=== PATIENT | female | born 1940 | race Caucasian/White ===

== ENCOUNTER → 2017-08-25 | Outpatient (REF) ==
[2017-08-25 09:21] LABS: BASO # 0.1 10^3/uL (0.0-0.2); BASO % 1.3 % (0.0-1.0); EOS # 0.4 10^3/uL (0.0-0.50); EOS % 4.9 % (0.0-3.0); HEMATOCRIT 35.9 % (36.0-47.0); HEMOGLOBIN 11.7 g/dl (12.0-15.5); IMMATURE GRANULOCYTE % 0.3 % (0-3.0); LYMPH % 32.9 % (24.0-44.0); MEAN CORPUSCULAR HEMOGLOBIN 29.7 pg (27.0-33.0); MEAN CORPUSCULAR HGB CONC 32.6 g/dl (32.0-36.5); MEAN CORPUSCULAR VOLUME 91.1 fl (80.0-96.0); MONO # 0.2 10^3/uL (0.0-0.8); MONO % 2.4 % (0.0-5.0); NEUTROPHILS # 5.2 10^3/uL (1.8-7.7); NEUTROPHILS % 58.2 % (36.0-66.0); PLATELET COUNT, AUTOMATED 308 10^3/uL (150-450); RED BLOOD COUNT 3.94 10^6/uL (4.00-5.40)
[2017-08-25 09:31] LABS: ANION GAP 7 MEQ/L (8-16); BLOOD UREA NITROGEN 12 MG/DL (7-18); CALCIUM LEVEL 8.9 MG/DL (8.8-10.2); CARBON DIOXIDE LEVEL 28 MEQ/L (21-32); CHLORIDE LEVEL 106 MEQ/L (98-107); CREATININE FOR GFR 0.53 MG/DL (0.55-1.30); GLOMERULAR FILTRATION RATE > 60.0 (>39); GLUCOSE, FASTING 111 MG/DL (70-100); MAGNESIUM LEVEL 1.8 MG/DL (1.8-2.4); POTASSIUM SERUM 3.9 MEQ/L (3.5-5.1); SODIUM LEVEL 141 MEQ/L (136-145)
== END ==
LOC: SKLAB3 12:40
DX: C50.919 Malignant neoplasm of unspecified site of unspecified female breast (principal); I10 Essential (primary) hypertension

== ENCOUNTER 2017-10-15 11:57 | Inpatient (IN) | payer MEDICARE, MEDICAID ==
[2017-10-15] MEDS: ALBUTEROL 90 MCG/ACT 8GM HFA INHALER INH (09:00)
[2017-10-15 12:41] LABS: BASO # 0.1 10^3/uL (0.0-0.2); BASO % 0.2 % (0.0-1.0); EOS % 0.1 % (0.0-3.0); IMMATURE GRANULOCYTE # 1.1 10^3/uL (0-0); LYMPH # 1.3 10^3/uL (1.5-4.5); LYMPH % 4.6 % (24.0-44.0); MONO # 0.7 10^3/uL (0.0-0.8); MONO % 2.6 % (0.0-5.0); NEUTROPHILS # 24.3 10^3/uL (1.8-7.7); NEUTROPHILS % 88.5 % (36.0-66.0)
[2017-10-15 12:52] LABS: INR 1.69; PROTHROMBIN TIME 20.2 SECONDS (12.1-14.4)
[2017-10-15 13:53] LABS: CPK CREATINE PHOSPHOKINASE 11 U/L (26-192); TROPONIN I < 0.02 NG/ML (< 0.10)
[2017-10-15 13:59] LABS: CK-MB VALUE MASS < 1.0 NG/ML (<3.6); MB/CK RELATIVE INDEX 9.09 (< OR =4)
[2017-10-15] MEDS: NS 500 ML IV (14:00)
[2017-10-15 14:21] LABS: ALBUMIN 2.5 GM/DL (3.2-5.2); ALBUMIN/GLOBULIN RATIO 0.76 (1.00-1.93); ALKALINE PHOSPHATASE 113 U/L (45-117); ALT/SGPT 53 U/L (12-78); AST/SGOT 67 U/L (7-37); BILIRUBIN,DIRECT 0.3 MG/DL (0.0-0.2); BILIRUBIN,TOTAL 0.5 MG/DL (0.2-1.0); TOTAL PROTEIN 5.8 GM/DL (6.4-8.2)
[2017-10-15] MEDS ORDERED: LIDOCAINE 4% CREAM 5GM (LMX4) TOP (14:45)
[2017-10-15] MEDS ORDERED: ACETAMINOPHEN TAB 650MG DOSE (2X325MG) PO (14:45)
[2017-10-15] MEDS ORDERED: ALBUTEROL 90 MCG/ACT 8GM HFA INHALER INH (14:45)
[2017-10-15] MEDS: ONDANSETRON 4MG/2ML VIAL (J2405) IV (15:55)
[2017-10-15] MEDS: MORPHINE 4 MG/ML 1ML VIAL/SYRINGE (J2270) IV (15:55)
[2017-10-15] MEDS: CIPROFLOXACIN 400 MG in APPROPRIATE DILUENT 1 EA IV ×2 (16:00→19:31)
[2017-10-15] MEDS: HEPARIN SOD (PORCINE) 5000 UNITS/ML VIAL SC ×2 (17:39→21:08)
[2017-10-15] MEDS: SERTRALINE HCL 50 MG TAB PO (17:39)
[2017-10-15] MEDS: PANTOPRAZOLE 40MG TAB (PROTONIX) PO (17:39)
[2017-10-15] MEDS: amLODIPine 5 MG TAB PO (17:39)
[2017-10-15] MEDS: ASCORBIC ACID 500 MG TAB PO (17:40)
[2017-10-15] MEDS: NS 1,000 ML IV (17:41)
[2017-10-15] MEDS: metroNIDAZOLE 500 MG in APPROPRIATE DILUENT 1 EA IV (17:41)
[2017-10-15] MEDS: PERCOCET 5MG/325MG TAB PO (17:41)
[2017-10-15] MEDS: SIMETHICONE 80 MG CHEW TAB PO ×2 (17:41→21:07)
[2017-10-15] MEDS: VITAMIN D 1,000 INTERNATIONAL UNITS TABLET PO (17:43)
[2017-10-15 18:22] LABS: KETONE, URINE AUTO RFX NEGATIVE (NEGATIVE); MUCUS, URINE RFX SMALL (NEGATIVE); NITRITE, URINE AUTO RFX NEGATIVE (NEGATIVE); RBC, URINE AUTO RFX 3 /HPF (0-3); SPECIFIC GRAVITY UR AUTO RFX 1.011 (1.002-1.035); SQUAM EPITHELIAL CELL UR AURFX 0 /HPF (0-6)
[2017-10-15 18:24] LABS: LEUKOCYTE ESTERASE UR AUTO RFX 3+ (NEGATIVE); WBC, URINE AUTO RFX 46 /HPF (0-3)
[2017-10-15 19:12] LABS: LACTIC ACID SEPSIS PROTOCOL 1.6 MMOL/L (0.4-2.0)
[2017-10-15] MEDS: POTASSIUM CHLORIDE 10 MEQ SR TABLET PO (21:06)
[2017-10-15] MEDS: CARVedilol 12.5 MG TAB PO (21:06)
[2017-10-15] MEDS: MIRTAZAPINE 15 MG TAB PO (21:06)
[2017-10-15] MEDS: traMADol 50 MG TAB PO (21:07)
[2017-10-15] MEDS: LIDOCAINE 4% CREAM 5GM (LMX4) TOP (21:08)
[2017-10-16] MEDS: metroNIDAZOLE 500 MG in APPROPRIATE DILUENT 1 EA IV ×3 (00:59→17:09)
[2017-10-16] MEDS: NS 1,000 ML IV ×2 (03:57→11:30)
[2017-10-16] MEDS: CIPROFLOXACIN 400 MG in APPROPRIATE DILUENT 1 EA IV ×2 (05:24→18:11)
[2017-10-16] MEDS: HEPARIN SOD (PORCINE) 5000 UNITS/ML VIAL SC ×3 (05:24→21:28)
[2017-10-16] MEDS: PERCOCET 5MG/325MG TAB PO (05:25)
[2017-10-16 06:49] LABS: BASO % 0.2 % (0.0-1.0); EOS # 0.1 10^3/uL (0.0-0.50); EOS % 0.3 % (0.0-3.0); HEMATOCRIT 27.6 % (36.0-47.0); HEMOGLOBIN 9.7 g/dl (12.0-15.5); IMMATURE GRANULOCYTE % 3.4 % (0-3.0); LYMPH # 1.5 10^3/uL (1.5-4.5); LYMPH % 5.9 % (24.0-44.0); MEAN CORPUSCULAR HGB CONC 35.1 g/dl (32.0-36.5); MEAN CORPUSCULAR VOLUME 85.4 fl (80.0-96.0); MONO # 0.5 10^3/uL (0.0-0.8); NEUTROPHILS # 22.5 10^3/uL (1.8-7.7); NEUTROPHILS % 88.2 % (36.0-66.0); PLATELET COUNT, AUTOMATED 322 10^3/uL (150-450); RED BLOOD COUNT 3.23 10^6/uL (4.00-5.40); RED CELL DISTRIBUTION WIDTH 16.3 % (11.5-14.5); WHITE BLOOD COUNT 25.5 10^3/uL (4.0-10.0)
[2017-10-16 07:11] LABS: ALKALINE PHOSPHATASE 103 U/L (45-117); ALT/SGPT 37 U/L (12-78); ANION GAP 10 MEQ/L (8-16); AST/SGOT 25 U/L (7-37); BILIRUBIN,TOTAL 0.4 MG/DL (0.2-1.0); BLOOD UREA NITROGEN 42 MG/DL (7-18); CALCIUM LEVEL 7.6 MG/DL (8.8-10.2); CARBON DIOXIDE LEVEL 19 MEQ/L (21-32); CHLORIDE LEVEL 103 MEQ/L (98-107); CREATININE FOR GFR 1.03 MG/DL (0.55-1.30); GLUCOSE, FASTING 144 MG/DL (70-100); MAGNESIUM LEVEL 1.9 MG/DL (1.8-2.4); POTASSIUM SERUM 4.1 MEQ/L (3.5-5.1); SODIUM LEVEL 132 MEQ/L (136-145)
[2017-10-16] MEDS: ALBUTEROL 90 MCG/ACT 8GM HFA INHALER INH (08:08)
[2017-10-16] MEDS: PANTOPRAZOLE 40MG TAB (PROTONIX) PO (09:00)
[2017-10-16] MEDS: ASCORBIC ACID 500 MG TAB PO (09:01)
[2017-10-16] MEDS: VITAMIN D 1,000 INTERNATIONAL UNITS TABLET PO (09:01)
[2017-10-16] MEDS: SIMETHICONE 80 MG CHEW TAB PO ×3 (09:01→21:27)
[2017-10-16] MEDS: POTASSIUM CHLORIDE 10 MEQ SR TABLET PO ×2 (09:01→21:29)
[2017-10-16] MEDS: SERTRALINE HCL 50 MG TAB PO (09:01)
[2017-10-16] MEDS: amLODIPine 5 MG TAB PO (09:15)
[2017-10-16] MEDS: CARVedilol 12.5 MG TAB PO ×2 (09:15→21:27)
[2017-10-16] MEDS: MIRTAZAPINE 15 MG TAB PO (21:27)
[2017-10-16] MEDS: LIDOCAINE 4% CREAM 5GM (LMX4) TOP (21:27)
[2017-10-16] MEDS: traMADol 50 MG TAB PO (21:28)
[2017-10-17] MEDS: metroNIDAZOLE 500 MG in APPROPRIATE DILUENT 1 EA IV ×3 (01:21→16:36)
[2017-10-17] MEDS: NS 1,000 ML IV ×2 (05:48→21:23)
[2017-10-17] MEDS: HEPARIN SOD (PORCINE) 5000 UNITS/ML VIAL SC ×3 (05:48→21:21)
[2017-10-17] MEDS: CIPROFLOXACIN 400 MG in APPROPRIATE DILUENT 1 EA IV ×2 (05:48→18:12)
[2017-10-17] MEDS: traMADol 50 MG TAB PO ×2 (05:53→18:53)
[2017-10-17] MEDS: ALBUTEROL 90 MCG/ACT 8GM HFA INHALER INH (07:59)
[2017-10-17] MEDS: ASCORBIC ACID 500 MG TAB PO (09:16)
[2017-10-17] MEDS: amLODIPine 5 MG TAB PO (09:16)
[2017-10-17] MEDS: POTASSIUM CHLORIDE 10 MEQ SR TABLET PO ×2 (09:16→21:21)
[2017-10-17] MEDS: SIMETHICONE 80 MG CHEW TAB PO ×3 (09:16→21:21)
[2017-10-17] MEDS: PANTOPRAZOLE 40MG TAB (PROTONIX) PO (09:17)
[2017-10-17] MEDS: SERTRALINE HCL 50 MG TAB PO (09:17)
[2017-10-17] MEDS: VITAMIN D 1,000 INTERNATIONAL UNITS TABLET PO (09:17)
[2017-10-17] MEDS: CARVedilol 12.5 MG TAB PO ×2 (09:17→21:21)
[2017-10-17 09:27] LABS: HEMATOCRIT 30.4 % (36.0-47.0); HEMOGLOBIN 10.4 g/dl (12.0-15.5); MEAN CORPUSCULAR HEMOGLOBIN 29.5 pg (27.0-33.0); MEAN CORPUSCULAR HGB CONC 34.2 g/dl (32.0-36.5); MEAN CORPUSCULAR VOLUME 86.4 fl (80.0-96.0); PLATELET COUNT, AUTOMATED 401 10^3/uL (150-450); RED BLOOD COUNT 3.52 10^6/uL (4.00-5.40); WHITE BLOOD COUNT 22.8 10^3/uL (4.0-10.0)
[2017-10-17 09:38] LABS: ADD MANUAL DIFFER YES; DIFF SLIDE NUMBER 55; POS COUNT POS FLAG; POSITIVE MORPH POS FLAG
[2017-10-17] MEDS: PERCOCET 5MG/325MG TAB PO ×2 (09:41→21:25)
[2017-10-17 10:02] LABS: ANISOCYTOSIS 1+; BANDS 1 % (< 11); LYMPHOCYTES 9 % (16-52); METAMYELOCYTES 2 % (0-0); MONOCYTES 3 % (0-8); NEUTROPHILS 85 % (35-75); OVALOCYTES 1+; PLATELET ESTIMATE NORMAL (NORMAL)
[2017-10-17 10:04] LABS: ALBUMIN 2.1 GM/DL (3.2-5.2); ALBUMIN/GLOBULIN RATIO 0.66 (1.00-1.93); ALKALINE PHOSPHATASE 96 U/L (45-117); ALT/SGPT 28 U/L (12-78); ANION GAP 14 MEQ/L (8-16); AST/SGOT 15 U/L (7-37); BILIRUBIN,TOTAL 0.5 MG/DL (0.2-1.0); BLOOD UREA NITROGEN 27 MG/DL (7-18); CALCIUM LEVEL 7.6 MG/DL (8.8-10.2); CARBON DIOXIDE LEVEL 17 MEQ/L (21-32); CHLORIDE LEVEL 107 MEQ/L (98-107); CREATININE FOR GFR 0.89 MG/DL (0.55-1.30); GLOMERULAR FILTRATION RATE > 60.0 (>39); GLUCOSE, FASTING 101 MG/DL (70-100); MAGNESIUM LEVEL 1.8 MG/DL (1.8-2.4); POTASSIUM SERUM 3.9 MEQ/L (3.5-5.1); SODIUM LEVEL 138 MEQ/L (136-145); TOTAL PROTEIN 5.3 GM/DL (6.4-8.2)
[2017-10-17] MEDS: MIRTAZAPINE 15 MG TAB PO (21:21)
[2017-10-17] MEDS: LIDOCAINE 4% CREAM 5GM (LMX4) TOP (21:23)
[2017-10-18] MEDS: metroNIDAZOLE 500 MG in APPROPRIATE DILUENT 1 EA IV ×3 (01:24→16:53)
[2017-10-18] MEDS: CIPROFLOXACIN 400 MG in APPROPRIATE DILUENT 1 EA IV ×2 (05:38→18:08)
[2017-10-18] MEDS: HEPARIN SOD (PORCINE) 5000 UNITS/ML VIAL SC ×3 (05:38→21:53)
[2017-10-18 06:31] LABS: HEMATOCRIT 29.2 % (36.0-47.0); MEAN CORPUSCULAR HEMOGLOBIN 29.7 pg (27.0-33.0); MEAN CORPUSCULAR HGB CONC 34.2 g/dl (32.0-36.5); MEAN CORPUSCULAR VOLUME 86.6 fl (80.0-96.0); PLATELET COUNT, AUTOMATED 420 10^3/uL (150-450); RED BLOOD COUNT 3.37 10^6/uL (4.00-5.40); RED CELL DISTRIBUTION WIDTH 17.1 % (11.5-14.5); WHITE BLOOD COUNT 20.1 10^3/uL (4.0-10.0)
[2017-10-18 06:32] LABS: ADD MANUAL DIFFER YES; DIFF SLIDE NUMBER 33; POS COUNT POS FLAG; POSITIVE MORPH POS FLAG
[2017-10-18 06:49] LABS: ALBUMIN/GLOBULIN RATIO 0.54 (1.00-1.93); ALKALINE PHOSPHATASE 82 U/L (45-117); ALT/SGPT 22 U/L (12-78); ANION GAP 11 MEQ/L (8-16); AST/SGOT 19 U/L (7-37); BILIRUBIN,TOTAL 0.5 MG/DL (0.2-1.0); BLOOD UREA NITROGEN 19 MG/DL (7-18); CALCIUM LEVEL 7.8 MG/DL (8.8-10.2); CARBON DIOXIDE LEVEL 17 MEQ/L (21-32); CHLORIDE LEVEL 110 MEQ/L (98-107); CREATININE FOR GFR 0.72 MG/DL (0.55-1.30); GLOMERULAR FILTRATION RATE > 60.0 (>39); GLUCOSE, FASTING 116 MG/DL (70-100); MAGNESIUM LEVEL 1.6 MG/DL (1.8-2.4); POTASSIUM SERUM 3.7 MEQ/L (3.5-5.1); SODIUM LEVEL 138 MEQ/L (136-145); TOTAL PROTEIN 5.7 GM/DL (6.4-8.2)
[2017-10-18 07:00] LABS: BANDS 3 % (< 11); LYMPHOCYTES 7 % (16-52); METAMYELOCYTES 1 % (0-0); MONOCYTES 1 % (0-8); MYELOCYTES 1 % (0-0); NEUTROPHILS 87 % (35-75); PLATELET ESTIMATE INCREASED (NORMAL)
[2017-10-18 07:01] LABS: ANISOCYTOSIS 1+
[2017-10-18] MEDS: ALBUTEROL 90 MCG/ACT 8GM HFA INHALER INH (07:55)
[2017-10-18] MEDS ORDERED: ceFAZolin 2 GM/D5W 50 ML IV BAG (J0690 PER 500MG) As Ordered (08:10)
[2017-10-18] MEDS ORDERED: EPINEPHrine INJ 1 MG/ML 1ML AMP As Ordered (08:11)
[2017-10-18] MEDS ORDERED: PROPOFOL 200 MG/20 ML VIAL As Ordered ×2 (08:28→08:29)
[2017-10-18] MEDS ORDERED: fentaNYL 100 MCG/2 ML INJECTION (J3010) As Ordered ×2 (08:28→12:12)
[2017-10-18] MEDS ORDERED: BUPIVACAINE/DEXTROSE 0.75% 2 ML AMP As Ordered (08:29)
[2017-10-18] MEDS ORDERED: MIDAZOLAM INJ 2 MG/2 ML VIAL (J2250) As Ordered (08:39)
[2017-10-18] MEDS ORDERED: KETAMINE HCL 200 MG/20 ML VIAL As Ordered (08:39)
[2017-10-18] MEDS ORDERED: ceFAZolin 1GM INJ (J0690 PER 500MG) As Ordered (08:39)
[2017-10-18] MEDS: SIMETHICONE 80 MG CHEW TAB PO ×3 (09:00→21:51)
[2017-10-18] MEDS ORDERED: PHENYLEPHRINE INJ 10MG/ML VIAL (J2370) As Ordered (09:08)
[2017-10-18] MEDS ORDERED: ONDANSETRON 4MG/2ML VIAL (J2405) As Ordered (11:28)
[2017-10-18] MEDS ORDERED: METOCLOPRAMIDE INJ 10MG/2ML VIAL (J2765) As Ordered (11:28)
[2017-10-18] MEDS: ONDANSETRON 4MG/2ML VIAL (J2405) IV (11:37)
[2017-10-18] MEDS: METOCLOPRAMIDE INJ 10MG/2ML VIAL (J2765) IV (11:37)
[2017-10-18] MEDS ORDERED: PERCOCET 5MG/325MG TAB PO (12:00)
[2017-10-18] MEDS ORDERED: MEPERIDINE INJ 25 MG/ML VIAL (J2175) IV (12:00)
[2017-10-18] MEDS: fentaNYL 100 MCG/2 ML INJECTION (J3010) IV ×2 (12:16→12:30)
[2017-10-18] MEDS ORDERED: NORCO, ANEXSIA 5/325MG TABLET (HYDROcodone/ACETAMINOPHEN) As Ordered (12:19)
[2017-10-18] MEDS: NORCO, ANEXSIA 5/325MG TABLET (HYDROcodone/ACETAMINOPHEN) PO (12:25)
[2017-10-18] MEDS: NS 1,000 ML IV (13:24)
[2017-10-18] MEDS: LR 1,000 ML IV (13:44)
[2017-10-18] MEDS: MORPHINE 4 MG/ML 1ML VIAL/SYRINGE (J2270) IV ×2 (13:49→21:55)
[2017-10-18] MEDS: CARVedilol 12.5 MG TAB PO ×2 (14:20→21:52)
[2017-10-18] MEDS: POTASSIUM CHLORIDE 10 MEQ SR TABLET PO ×2 (14:21→21:51)
[2017-10-18] MEDS: ASCORBIC ACID 500 MG TAB PO (14:21)
[2017-10-18] MEDS: amLODIPine 5 MG TAB PO (14:21)
[2017-10-18] MEDS: PANTOPRAZOLE 40MG TAB (PROTONIX) PO (14:21)
[2017-10-18] MEDS: SERTRALINE HCL 50 MG TAB PO (14:21)
[2017-10-18] MEDS: VITAMIN D 1,000 INTERNATIONAL UNITS TABLET PO (14:21)
[2017-10-18] MEDS: traMADol 50 MG TAB PO (16:53)
[2017-10-18] MEDS: MIRTAZAPINE 15 MG TAB PO (21:51)
[2017-10-18] MEDS: MAGNESIUM OXIDE 400 MG TAB (MAG-OX) PO (21:52)
[2017-10-18] MEDS: LIDOCAINE 4% CREAM 5GM (LMX4) TOP (21:53)
[2017-10-19] MEDS: metroNIDAZOLE 500 MG in APPROPRIATE DILUENT 1 EA IV ×3 (01:28→16:28)
[2017-10-19] MEDS: CIPROFLOXACIN 400 MG in APPROPRIATE DILUENT 1 EA IV ×2 (05:25→18:12)
[2017-10-19] MEDS: HEPARIN SOD (PORCINE) 5000 UNITS/ML VIAL SC (05:25)
[2017-10-19] MEDS: NS 1,000 ML IV ×2 (05:25→18:48)
[2017-10-19] MEDS: MORPHINE 4 MG/ML 1ML VIAL/SYRINGE (J2270) IV ×2 (05:55→14:18)
[2017-10-19 06:37] LABS: HEMATOCRIT 28.2 % (36.0-47.0); HEMOGLOBIN 9.5 g/dl (12.0-15.5); MEAN CORPUSCULAR HEMOGLOBIN 29.9 pg (27.0-33.0); MEAN CORPUSCULAR HGB CONC 33.7 g/dl (32.0-36.5); MEAN CORPUSCULAR VOLUME 88.7 fl (80.0-96.0); PLATELET COUNT, AUTOMATED 428 10^3/uL (150-450); RED BLOOD COUNT 3.18 10^6/uL (4.00-5.40); RED CELL DISTRIBUTION WIDTH 17.2 % (11.5-14.5); WHITE BLOOD COUNT 21.2 10^3/uL (4.0-10.0)
[2017-10-19 06:51] LABS: ADD MANUAL DIFFER YES; DIFF SLIDE NUMBER 28; POS COUNT POS FLAG; POSITIVE MORPH POS FLAG
[2017-10-19 06:54] LABS: ALBUMIN 2.1 GM/DL (3.2-5.2); ALBUMIN/GLOBULIN RATIO 0.72 (1.00-1.93); ALKALINE PHOSPHATASE 73 U/L (45-117); ALT/SGPT 19 U/L (12-78); ANION GAP 11 MEQ/L (8-16); AST/SGOT 26 U/L (7-37); BILIRUBIN,TOTAL 0.5 MG/DL (0.2-1.0); BLOOD UREA NITROGEN 10 MG/DL (7-18); CALCIUM LEVEL 7.4 MG/DL (8.8-10.2); CARBON DIOXIDE LEVEL 19 MEQ/L (21-32); CHLORIDE LEVEL 111 MEQ/L (98-107); CREATININE FOR GFR 0.62 MG/DL (0.55-1.30); GLOMERULAR FILTRATION RATE > 60.0 (>39); GLUCOSE, FASTING 115 MG/DL (70-100); MAGNESIUM LEVEL 1.2 MG/DL (1.8-2.4); POTASSIUM SERUM 3.7 MEQ/L (3.5-5.1); SODIUM LEVEL 141 MEQ/L (136-145)
[2017-10-19] MEDS: ALBUTEROL 90 MCG/ACT 8GM HFA INHALER INH (07:37)
[2017-10-19 08:13] LABS: ATYPICAL LYMPH 2 % (0-5); BANDS 4 % (< 11); LYMPHOCYTES 9 % (16-52); METAMYELOCYTES 1 % (0-0); MONOCYTES 5 % (0-8); MYELOCYTES 2 % (0-0); NEUTROPHILS 77 % (35-75); PLATELET ESTIMATE NORMAL (NORMAL)
[2017-10-19 08:14] LABS: ANISOCYTOSIS 1+
[2017-10-19] MEDS: SIMETHICONE 80 MG CHEW TAB PO ×3 (10:21→21:32)
[2017-10-19] MEDS: CARVedilol 12.5 MG TAB PO ×2 (10:22→21:34)
[2017-10-19] MEDS: MAGNESIUM OXIDE 400 MG TAB (MAG-OX) PO ×2 (10:22→21:31)
[2017-10-19] MEDS: SERTRALINE HCL 50 MG TAB PO (10:22)
[2017-10-19] MEDS: PANTOPRAZOLE 40MG TAB (PROTONIX) PO (10:23)
[2017-10-19] MEDS: amLODIPine 5 MG TAB PO (10:23)
[2017-10-19] MEDS: VITAMIN D 1,000 INTERNATIONAL UNITS TABLET PO (10:25)
[2017-10-19] MEDS: traMADol 50 MG TAB PO ×2 (10:25→21:33)
[2017-10-19] MEDS: ASCORBIC ACID 500 MG TAB PO (10:25)
[2017-10-19] MEDS: POTASSIUM CHLORIDE 10 MEQ SR TABLET PO ×2 (10:26→21:32)
[2017-10-19] MEDS: MIRALAX *UNIT DOSE* 17GM PACKET PO (10:26)
[2017-10-19] MEDS: MOM 30ML SUSPENSION UDC PO (10:26)
[2017-10-19] MEDS: SENOKOT S TAB PO ×2 (10:28→21:32)
[2017-10-19] MEDS: PERCOCET 5MG/325MG TAB PO (16:49)
[2017-10-19] MEDS: RIVAROXABAN 20 MG TAB (XARELTO) PO (18:11)
[2017-10-19] MEDS: MIRTAZAPINE 15 MG TAB PO (21:32)
[2017-10-19] MEDS: LIDOCAINE 4% CREAM 5GM (LMX4) TOP (21:33)
[2017-10-20] MEDS: metroNIDAZOLE 500 MG in APPROPRIATE DILUENT 1 EA IV ×3 (00:57→16:15)
[2017-10-20] MEDS: MORPHINE 4 MG/ML 1ML VIAL/SYRINGE (J2270) IV ×3 (04:33→14:22)
[2017-10-20] MEDS: CIPROFLOXACIN 400 MG in APPROPRIATE DILUENT 1 EA IV ×2 (05:43→17:51)
[2017-10-20 07:03] LABS: HEMATOCRIT 25.7 % (36.0-47.0); HEMOGLOBIN 8.8 g/dl (12.0-15.5); MEAN CORPUSCULAR HEMOGLOBIN 29.7 pg (27.0-33.0); MEAN CORPUSCULAR HGB CONC 34.2 g/dl (32.0-36.5); MEAN CORPUSCULAR VOLUME 86.8 fl (80.0-96.0); PLATELET COUNT, AUTOMATED 441 10^3/uL (150-450); RED BLOOD COUNT 2.96 10^6/uL (4.00-5.40); RED CELL DISTRIBUTION WIDTH 17.2 % (11.5-14.5); WHITE BLOOD COUNT 20.9 10^3/uL (4.0-10.0)
[2017-10-20 07:08] LABS: POSITIVE MORPH POS FLAG
[2017-10-20 07:09] LABS: ADD MANUAL DIFFER YES; DIFF SLIDE NUMBER 13; POS COUNT POS FLAG
[2017-10-20 07:18] LABS: ALBUMIN/GLOBULIN RATIO 0.57 (1.00-1.93); ALKALINE PHOSPHATASE 75 U/L (45-117); ALT/SGPT 19 U/L (12-78); ANION GAP 10 MEQ/L (8-16); AST/SGOT 31 U/L (7-37); BILIRUBIN,TOTAL 0.5 MG/DL (0.2-1.0); BLOOD UREA NITROGEN 7 MG/DL (7-18); CALCIUM LEVEL 7.4 MG/DL (8.8-10.2); CARBON DIOXIDE LEVEL 20 MEQ/L (21-32); CHLORIDE LEVEL 110 MEQ/L (98-107); CREATININE FOR GFR 0.61 MG/DL (0.55-1.30); GLOMERULAR FILTRATION RATE > 60.0 (>39); GLUCOSE, FASTING 138 MG/DL (70-100); MAGNESIUM LEVEL 1.5 MG/DL (1.8-2.4); POTASSIUM SERUM 3.5 MEQ/L (3.5-5.1); SODIUM LEVEL 140 MEQ/L (136-145); TOTAL PROTEIN 5.5 GM/DL (6.4-8.2)
[2017-10-20 07:29] LABS: ANISOCYTOSIS 1+; BANDS 1 % (< 11); EOSINOPHILS 1 % (0-5); LYMPHOCYTES 10 % (16-52); MONOCYTES 4 % (0-8); MYELOCYTES 1 % (0-0); NEUTROPHILS 83 % (35-75); PLATELET ESTIMATE INCREASED (NORMAL)
[2017-10-20 07:30] LABS: POIKILOCYTOSIS 1+; POLYCHROMASIA 1+
[2017-10-20] MEDS: ALBUTEROL 90 MCG/ACT 8GM HFA INHALER INH (07:48)
[2017-10-20] MEDS: NS 1,000 ML IV (08:45)
[2017-10-20] MEDS: SIMETHICONE 80 MG CHEW TAB PO ×3 (08:46→20:59)
[2017-10-20] MEDS: SENOKOT S TAB PO ×2 (08:46→21:00)
[2017-10-20] MEDS: POTASSIUM CHLORIDE 10 MEQ SR TABLET PO ×2 (08:46→21:00)
[2017-10-20] MEDS: MAGNESIUM OXIDE 400 MG TAB (MAG-OX) PO ×2 (08:46→20:59)
[2017-10-20] MEDS: ASCORBIC ACID 500 MG TAB PO (08:46)
[2017-10-20] MEDS: amLODIPine 5 MG TAB PO (08:47)
[2017-10-20] MEDS: SERTRALINE HCL 50 MG TAB PO (08:47)
[2017-10-20] MEDS: VITAMIN D 1,000 INTERNATIONAL UNITS TABLET PO (08:47)
[2017-10-20] MEDS: PANTOPRAZOLE 40MG TAB (PROTONIX) PO (08:47)
[2017-10-20] MEDS: CARVedilol 12.5 MG TAB PO ×2 (08:47→20:59)
[2017-10-20] MEDS: MOM 30ML SUSPENSION UDC PO (08:48)
[2017-10-20] MEDS: PERCOCET 5MG/325MG TAB PO ×3 (08:48→20:59)
[2017-10-20] MEDS: MIRALAX *UNIT DOSE* 17GM PACKET PO (08:49)
[2017-10-20] MEDS: RIVAROXABAN 20 MG TAB (XARELTO) PO (17:51)
[2017-10-20] MEDS: MIRTAZAPINE 15 MG TAB PO (20:59)
[2017-10-20] MEDS: LIDOCAINE 4% CREAM 5GM (LMX4) TOP (21:00)
[2017-10-21] MEDS: CIPROFLOXACIN 400 MG in APPROPRIATE DILUENT 1 EA IV ×2 (05:36→18:16)
[2017-10-21 06:57] LABS: BASO # 0.1 10^3/uL (0.0-0.2); BASO % 0.2 % (0.0-1.0); EOS # 0.2 10^3/uL (0.0-0.50); HEMATOCRIT 25.7 % (36.0-47.0); HEMOGLOBIN 8.7 g/dl (12.0-15.5); IMMATURE GRANULOCYTE % 4.6 % (0-3.0); LYMPH % 8.9 % (24.0-44.0); MEAN CORPUSCULAR HEMOGLOBIN 29.5 pg (27.0-33.0); MEAN CORPUSCULAR HGB CONC 33.9 g/dl (32.0-36.5); MEAN CORPUSCULAR VOLUME 87.1 fl (80.0-96.0); MONO # 0.6 10^3/uL (0.0-0.8); MONO % 2.4 % (0.0-5.0); NEUTROPHILS # 18.8 10^3/uL (1.8-7.7); NEUTROPHILS % 82.9 % (36.0-66.0); PLATELET COUNT, AUTOMATED 518 10^3/uL (150-450); RED BLOOD COUNT 2.95 10^6/uL (4.00-5.40); RED CELL DISTRIBUTION WIDTH 17.6 % (11.5-14.5); WHITE BLOOD COUNT 22.7 10^3/uL (4.0-10.0)
[2017-10-21 07:26] LABS: ALBUMIN/GLOBULIN RATIO 0.57 (1.00-1.93); ALKALINE PHOSPHATASE 67 U/L (45-117); ALT/SGPT 17 U/L (12-78); ANION GAP 11 MEQ/L (8-16); AST/SGOT 24 U/L (7-37); BILIRUBIN,TOTAL 0.6 MG/DL (0.2-1.0); BLOOD UREA NITROGEN 7 MG/DL (7-18); CALCIUM LEVEL 7.7 MG/DL (8.8-10.2); CARBON DIOXIDE LEVEL 20 MEQ/L (21-32); CHLORIDE LEVEL 107 MEQ/L (98-107); CREATININE FOR GFR 0.54 MG/DL (0.55-1.30); GLOMERULAR FILTRATION RATE > 60.0 (>39); GLUCOSE, FASTING 122 MG/DL (70-100); MAGNESIUM LEVEL 1.5 MG/DL (1.8-2.4); POTASSIUM SERUM 3.4 MEQ/L (3.5-5.1); SODIUM LEVEL 138 MEQ/L (136-145); TOTAL PROTEIN 5.5 GM/DL (6.4-8.2)
[2017-10-21] MEDS: ALBUTEROL 90 MCG/ACT 8GM HFA INHALER INH (07:49)
[2017-10-21] MEDS: MOM 30ML SUSPENSION UDC PO (08:36)
[2017-10-21] MEDS: MIRALAX *UNIT DOSE* 17GM PACKET PO (08:36)
[2017-10-21] MEDS: PERCOCET 5MG/325MG TAB PO ×3 (08:40→20:31)
[2017-10-21] MEDS: MAGNESIUM OXIDE 400 MG TAB (MAG-OX) PO ×2 (08:40→20:30)
[2017-10-21] MEDS: ASCORBIC ACID 500 MG TAB PO (08:40)
[2017-10-21] MEDS: PANTOPRAZOLE 40MG TAB (PROTONIX) PO (08:40)
[2017-10-21] MEDS: CARVedilol 12.5 MG TAB PO ×2 (08:41→20:30)
[2017-10-21] MEDS: VITAMIN D 1,000 INTERNATIONAL UNITS TABLET PO (08:41)
[2017-10-21] MEDS: POTASSIUM CHLORIDE 10 MEQ SR TABLET PO ×2 (08:41→20:30)
[2017-10-21] MEDS: SIMETHICONE 80 MG CHEW TAB PO ×3 (08:41→20:31)
[2017-10-21] MEDS: SERTRALINE HCL 50 MG TAB PO (08:41)
[2017-10-21] MEDS: SENOKOT S TAB PO ×2 (08:42→20:30)
[2017-10-21] MEDS: amLODIPine 5 MG TAB PO (08:42)
[2017-10-21] MEDS: MORPHINE 4 MG/ML 1ML VIAL/SYRINGE (J2270) IV (14:54)
[2017-10-21] MEDS: RIVAROXABAN 20 MG TAB (XARELTO) PO (18:09)
[2017-10-21] MEDS: LIDOCAINE 4% CREAM 5GM (LMX4) TOP (20:31)
[2017-10-21] MEDS: MIRTAZAPINE 15 MG TAB PO (20:31)
[2017-10-22] MEDS: PERCOCET 5MG/325MG TAB PO ×3 (01:10→18:42)
[2017-10-22] MEDS: MAG SULF 1GM/100ML (MAG RUN) 1 GM in APPROPRIATE DILUENT 1 EA IV ×3 (01:15→03:27)
[2017-10-22] MEDS: CIPROFLOXACIN 400 MG in APPROPRIATE DILUENT 1 EA IV ×2 (05:18→17:27)
[2017-10-22 06:56] LABS: BASO # 0.1 10^3/uL (0.0-0.2); BASO % 0.3 % (0.0-1.0); EOS # 0.2 10^3/uL (0.0-0.50); EOS % 0.9 % (0.0-3.0); HEMATOCRIT 27.5 % (36.0-47.0); HEMOGLOBIN 9.2 g/dl (12.0-15.5); IMMATURE GRANULOCYTE % 2.9 % (0-3.0); LYMPH % 9.3 % (24.0-44.0); MEAN CORPUSCULAR HEMOGLOBIN 29.9 pg (27.0-33.0); MEAN CORPUSCULAR HGB CONC 33.5 g/dl (32.0-36.5); MEAN CORPUSCULAR VOLUME 89.3 fl (80.0-96.0); MONO # 0.6 10^3/uL (0.0-0.8); MONO % 2.8 % (0.0-5.0); NEUTROPHILS % 83.8 % (36.0-66.0); PLATELET COUNT, AUTOMATED 594 10^3/uL (150-450); RED BLOOD COUNT 3.08 10^6/uL (4.00-5.40); RED CELL DISTRIBUTION WIDTH 17.4 % (11.5-14.5); WHITE BLOOD COUNT 21.5 10^3/uL (4.0-10.0)
[2017-10-22 06:59] LABS: ALBUMIN 1.8 GM/DL (3.2-5.2); ALBUMIN/GLOBULIN RATIO 0.51 (1.00-1.93); ALKALINE PHOSPHATASE 70 U/L (45-117); ALT/SGPT 17 U/L (12-78); ANION GAP 9 MEQ/L (8-16); AST/SGOT 15 U/L (7-37); BILIRUBIN,TOTAL 0.3 MG/DL (0.2-1.0); BLOOD UREA NITROGEN 5 MG/DL (7-18); CALCIUM LEVEL 7.6 MG/DL (8.8-10.2); CARBON DIOXIDE LEVEL 23 MEQ/L (21-32); CHLORIDE LEVEL 104 MEQ/L (98-107); CREATININE FOR GFR 0.58 MG/DL (0.55-1.30); GLOMERULAR FILTRATION RATE > 60.0 (>39); GLUCOSE, FASTING 145 MG/DL (70-100); MAGNESIUM LEVEL 2.4 MG/DL (1.8-2.4); POTASSIUM SERUM 3.3 MEQ/L (3.5-5.1); SODIUM LEVEL 136 MEQ/L (136-145); TOTAL PROTEIN 5.3 GM/DL (6.4-8.2)
[2017-10-22] MEDS: ALBUTEROL 90 MCG/ACT 8GM HFA INHALER INH (08:55)
[2017-10-22] MEDS: MOM 30ML SUSPENSION UDC PO (09:00)
[2017-10-22] MEDS: SENOKOT S TAB PO (09:00)
[2017-10-22] MEDS: MIRALAX *UNIT DOSE* 17GM PACKET PO (09:00)
[2017-10-22] MEDS: POTASSIUM CHLORIDE 10 MEQ SR TABLET PO ×3 (09:52→20:57)
[2017-10-22] MEDS: amLODIPine 5 MG TAB PO (09:52)
[2017-10-22] MEDS: SERTRALINE HCL 50 MG TAB PO (09:52)
[2017-10-22] MEDS: VITAMIN D 1,000 INTERNATIONAL UNITS TABLET PO (09:52)
[2017-10-22] MEDS: SIMETHICONE 80 MG CHEW TAB PO ×3 (09:52→20:57)
[2017-10-22] MEDS: MAGNESIUM OXIDE 400 MG TAB (MAG-OX) PO ×2 (09:53→20:58)
[2017-10-22] MEDS: CARVedilol 12.5 MG TAB PO ×2 (09:53→20:58)
[2017-10-22] MEDS: ASCORBIC ACID 500 MG TAB PO (09:53)
[2017-10-22] MEDS: PANTOPRAZOLE 40MG TAB (PROTONIX) PO (09:53)
[2017-10-22] MEDS: ANASTROZOLE 1MG TAB PO (16:32)
[2017-10-22] MEDS: RIVAROXABAN 20 MG TAB (XARELTO) PO (17:27)
[2017-10-22] MEDS: MIRTAZAPINE 15 MG TAB PO (20:57)
[2017-10-22] MEDS: LIDOCAINE 4% CREAM 5GM (LMX4) TOP (20:58)
[2017-10-23] MEDS: PERCOCET 5MG/325MG TAB PO ×3 (03:47→21:10)
[2017-10-23] MEDS: CIPROFLOXACIN 400 MG in APPROPRIATE DILUENT 1 EA IV ×2 (05:54→17:55)
[2017-10-23] MEDS: MORPHINE 4 MG/ML 1ML VIAL/SYRINGE (J2270) IV (06:08)
[2017-10-23] MEDS: ALBUTEROL 90 MCG/ACT 8GM HFA INHALER INH (08:23)
[2017-10-23] MEDS: ANASTROZOLE 1MG TAB PO (08:39)
[2017-10-23] MEDS: PANTOPRAZOLE 40MG TAB (PROTONIX) PO (08:39)
[2017-10-23] MEDS: MAGNESIUM OXIDE 400 MG TAB (MAG-OX) PO ×2 (08:39→21:08)
[2017-10-23] MEDS: VITAMIN D 1,000 INTERNATIONAL UNITS TABLET PO (08:39)
[2017-10-23] MEDS: SIMETHICONE 80 MG CHEW TAB PO ×3 (08:39→21:08)
[2017-10-23] MEDS: amLODIPine 5 MG TAB PO (08:40)
[2017-10-23] MEDS: POTASSIUM CHLORIDE 10 MEQ SR TABLET PO ×2 (08:40→21:08)
[2017-10-23] MEDS: ASCORBIC ACID 500 MG TAB PO (08:40)
[2017-10-23] MEDS: CARVedilol 12.5 MG TAB PO ×2 (08:40→21:09)
[2017-10-23] MEDS: SERTRALINE HCL 50 MG TAB PO (08:40)
[2017-10-23 09:09] LABS: HEMATOCRIT 30.7 % (36.0-47.0); HEMOGLOBIN 10.3 g/dl (12.0-15.5); MEAN CORPUSCULAR HEMOGLOBIN 30.2 pg (27.0-33.0); MEAN CORPUSCULAR HGB CONC 33.6 g/dl (32.0-36.5); PLATELET COUNT, AUTOMATED 776 10^3/uL (150-450); RED BLOOD COUNT 3.41 10^6/uL (4.00-5.40); RED CELL DISTRIBUTION WIDTH 17.5 % (11.5-14.5); WHITE BLOOD COUNT 20.2 10^3/uL (4.0-10.0)
[2017-10-23 09:31] LABS: ANION GAP 10 MEQ/L (8-16); BLOOD UREA NITROGEN 5 MG/DL (7-18); CALCIUM LEVEL 7.5 MG/DL (8.8-10.2); CARBON DIOXIDE LEVEL 23 MEQ/L (21-32); CHLORIDE LEVEL 102 MEQ/L (98-107); CREATININE FOR GFR 0.58 MG/DL (0.55-1.30); GLOMERULAR FILTRATION RATE > 60.0 (>39); GLUCOSE, FASTING 118 MG/DL (70-100); POTASSIUM SERUM 4.4 MEQ/L (3.5-5.1); SODIUM LEVEL 135 MEQ/L (136-145)
[2017-10-23] MEDS: RIVAROXABAN 20 MG TAB (XARELTO) PO (17:55)
[2017-10-23] MEDS: MIRTAZAPINE 15 MG TAB PO (21:08)
[2017-10-23] MEDS: LIDOCAINE 4% CREAM 5GM (LMX4) TOP (21:10)
[2017-10-24] MEDS: CIPROFLOXACIN 400 MG in APPROPRIATE DILUENT 1 EA IV ×2 (05:42→18:09)
[2017-10-24 06:46] LABS: BASO # 0.1 10^3/uL (0.0-0.2); BASO % 0.3 % (0.0-1.0); EOS # 0.1 10^3/uL (0.0-0.50); EOS % 0.6 % (0.0-3.0); HEMATOCRIT 29.2 % (36.0-47.0); HEMOGLOBIN 9.8 g/dl (12.0-15.5); IMMATURE GRANULOCYTE % 1.7 % (0-3.0); LYMPH # 2.1 10^3/uL (1.5-4.5); LYMPH % 10.4 % (24.0-44.0); MEAN CORPUSCULAR HEMOGLOBIN 29.7 pg (27.0-33.0); MEAN CORPUSCULAR HGB CONC 33.6 g/dl (32.0-36.5); MEAN CORPUSCULAR VOLUME 88.5 fl (80.0-96.0); MONO # 0.7 10^3/uL (0.0-0.8); MONO % 3.3 % (0.0-5.0); NEUTROPHILS # 17.2 10^3/uL (1.8-7.7); NEUTROPHILS % 83.7 % (36.0-66.0); PLATELET COUNT, AUTOMATED 734 10^3/uL (150-450); RED CELL DISTRIBUTION WIDTH 17.2 % (11.5-14.5); WHITE BLOOD COUNT 20.5 10^3/uL (4.0-10.0)
[2017-10-24 07:00] LABS: ALBUMIN 1.9 GM/DL (3.2-5.2); ALBUMIN/GLOBULIN RATIO 0.54 (1.00-1.93); ALKALINE PHOSPHATASE 66 U/L (45-117); ALT/SGPT 14 U/L (12-78); ANION GAP 9 MEQ/L (8-16); AST/SGOT 17 U/L (7-37); BILIRUBIN,TOTAL 0.4 MG/DL (0.2-1.0); BLOOD UREA NITROGEN 5 MG/DL (7-18); CALCIUM LEVEL 7.7 MG/DL (8.8-10.2); CARBON DIOXIDE LEVEL 24 MEQ/L (21-32); CHLORIDE LEVEL 104 MEQ/L (98-107); CREATININE FOR GFR 0.46 MG/DL (0.55-1.30); GLOMERULAR FILTRATION RATE > 60.0 (>39); GLUCOSE, FASTING 97 MG/DL (70-100); POTASSIUM SERUM 4.2 MEQ/L (3.5-5.1); SODIUM LEVEL 137 MEQ/L (136-145); TOTAL PROTEIN 5.4 GM/DL (6.4-8.2)
[2017-10-24] MEDS: ALBUTEROL 90 MCG/ACT 8GM HFA INHALER INH (07:44)
[2017-10-24] MEDS: amLODIPine 5 MG TAB PO (09:12)
[2017-10-24] MEDS: PANTOPRAZOLE 40MG TAB (PROTONIX) PO (09:12)
[2017-10-24] MEDS: SIMETHICONE 80 MG CHEW TAB PO ×3 (09:12→21:10)
[2017-10-24] MEDS: ACETAMINOPHEN 500 MG TAB PO ×3 (09:13→21:10)
[2017-10-24] MEDS: VITAMIN D 1,000 INTERNATIONAL UNITS TABLET PO (09:13)
[2017-10-24] MEDS: MAGNESIUM OXIDE 400 MG TAB (MAG-OX) PO ×2 (09:13→21:10)
[2017-10-24] MEDS: SERTRALINE HCL 50 MG TAB PO (09:13)
[2017-10-24] MEDS: ANASTROZOLE 1MG TAB PO (09:14)
[2017-10-24] MEDS: traMADol 50 MG TAB PO (09:14)
[2017-10-24] MEDS: POTASSIUM CHLORIDE 10 MEQ SR TABLET PO ×2 (09:14→21:10)
[2017-10-24] MEDS: ASCORBIC ACID 500 MG TAB PO (09:14)
[2017-10-24] MEDS: CARVedilol 12.5 MG TAB PO ×2 (09:15→21:09)
[2017-10-24] MEDS ORDERED: ISOVUE-370 76% 100ML VIAL (Q9967) As Ordered (11:52)
[2017-10-24 13:00] LABS: C REACTIVE PROTEIN QUANTITATIV 6.28 MG/DL (0.00-0.30)
[2017-10-24 13:42] LABS: ERYTHROCYTE SEDIMENTATION RATE 70 mm/hr (0-30)
[2017-10-24] MEDS: RIVAROXABAN 20 MG TAB (XARELTO) PO (18:09)
[2017-10-24] MEDS: MIRTAZAPINE 15 MG TAB PO (21:09)
[2017-10-24] MEDS: LIDOCAINE 4% CREAM 5GM (LMX4) TOP (22:09)
[2017-10-25] MEDS: traMADol 50 MG TAB PO (03:12)
[2017-10-25] MEDS: CIPROFLOXACIN 400 MG in APPROPRIATE DILUENT 1 EA IV ×2 (05:13→17:10)
[2017-10-25] MEDS: ACETAMINOPHEN 500 MG TAB PO ×3 (05:13→21:52)
[2017-10-25] MEDS: ONDANSETRON 4 MG ORAL DISINTEGRATING TAB (Q0162 PER 1MG) PO (06:26)
[2017-10-25 06:38] LABS: BASO # 0.1 10^3/uL (0.0-0.2); BASO % 0.3 % (0.0-1.0); EOS # 0.1 10^3/uL (0.0-0.50); EOS % 0.5 % (0.0-3.0); HEMATOCRIT 26.7 % (36.0-47.0); HEMOGLOBIN 8.9 g/dl (12.0-15.5); IMMATURE GRANULOCYTE % 1.2 % (0-3.0); LYMPH # 1.6 10^3/uL (1.5-4.5); LYMPH % 9.2 % (24.0-44.0); MEAN CORPUSCULAR HEMOGLOBIN 29.8 pg (27.0-33.0); MEAN CORPUSCULAR HGB CONC 33.3 g/dl (32.0-36.5); MEAN CORPUSCULAR VOLUME 89.3 fl (80.0-96.0); MONO # 0.5 10^3/uL (0.0-0.8); MONO % 2.9 % (0.0-5.0); NEUTROPHILS # 15.3 10^3/uL (1.8-7.7); NEUTROPHILS % 85.9 % (36.0-66.0); PLATELET COUNT, AUTOMATED 790 10^3/uL (150-450); RED BLOOD COUNT 2.99 10^6/uL (4.00-5.40); RED CELL DISTRIBUTION WIDTH 17.2 % (11.5-14.5); WHITE BLOOD COUNT 17.8 10^3/uL (4.0-10.0)
[2017-10-25 06:57] LABS: C REACTIVE PROTEIN QUANTITATIV 5.25 MG/DL (0.00-0.30)
[2017-10-25 07:25] LABS: ERYTHROCYTE SEDIMENTATION RATE 97 mm/hr (0-30)
[2017-10-25] MEDS: ALBUTEROL 90 MCG/ACT 8GM HFA INHALER INH (07:39)
[2017-10-25] MEDS: amLODIPine 5 MG TAB PO (09:23)
[2017-10-25] MEDS: VITAMIN D 1,000 INTERNATIONAL UNITS TABLET PO (09:24)
[2017-10-25] MEDS: ASCORBIC ACID 500 MG TAB PO (09:24)
[2017-10-25] MEDS: SIMETHICONE 80 MG CHEW TAB PO ×3 (09:24→21:51)
[2017-10-25] MEDS: PANTOPRAZOLE 40MG TAB (PROTONIX) PO (09:25)
[2017-10-25] MEDS: POTASSIUM CHLORIDE 10 MEQ SR TABLET PO ×2 (09:25→21:51)
[2017-10-25] MEDS: MAGNESIUM OXIDE 400 MG TAB (MAG-OX) PO ×2 (09:25→21:52)
[2017-10-25] MEDS: ANASTROZOLE 1MG TAB PO (09:26)
[2017-10-25] MEDS: SERTRALINE HCL 50 MG TAB PO (09:26)
[2017-10-25] MEDS: CARVedilol 12.5 MG TAB PO ×2 (09:26→21:53)
[2017-10-25] MEDS: RIVAROXABAN 20 MG TAB (XARELTO) PO (17:10)
[2017-10-25] MEDS: MIRTAZAPINE 15 MG TAB PO (21:51)
[2017-10-25] MEDS: LIDOCAINE 4% CREAM 5GM (LMX4) TOP (21:55)
[2017-10-26] MEDS: CIPROFLOXACIN 400 MG in APPROPRIATE DILUENT 1 EA IV ×2 (05:31→17:29)
[2017-10-26] MEDS: ACETAMINOPHEN 500 MG TAB PO ×3 (05:32→22:40)
[2017-10-26 06:54] LABS: BASO # 0.1 10^3/uL (0.0-0.2); BASO % 0.6 % (0.0-1.0); EOS # 0.1 10^3/uL (0.0-0.50); EOS % 0.8 % (0.0-3.0); HEMATOCRIT 25.9 % (36.0-47.0); HEMOGLOBIN 8.6 g/dl (12.0-15.5); IMMATURE GRANULOCYTE % 1.2 % (0-3.0); LYMPH # 1.8 10^3/uL (1.5-4.5); LYMPH % 11.9 % (24.0-44.0); MEAN CORPUSCULAR HGB CONC 33.2 g/dl (32.0-36.5); MEAN CORPUSCULAR VOLUME 90.2 fl (80.0-96.0); MONO # 0.6 10^3/uL (0.0-0.8); NEUTROPHILS # 12.6 10^3/uL (1.8-7.7); NEUTROPHILS % 81.5 % (36.0-66.0); PLATELET COUNT, AUTOMATED 785 10^3/uL (150-450); RED BLOOD COUNT 2.87 10^6/uL (4.00-5.40); RED CELL DISTRIBUTION WIDTH 17.2 % (11.5-14.5); WHITE BLOOD COUNT 15.4 10^3/uL (4.0-10.0)
[2017-10-26] MEDS ORDERED: ACETAMINOPHEN 500 MG TAB PO (07:00)
[2017-10-26 07:16] LABS: ERYTHROCYTE SEDIMENTATION RATE 91 mm/hr (0-30)
[2017-10-26] MEDS: ASCORBIC ACID 500 MG TAB PO (09:28)
[2017-10-26] MEDS: ANASTROZOLE 1MG TAB PO (09:29)
[2017-10-26] MEDS: amLODIPine 5 MG TAB PO (09:29)
[2017-10-26] MEDS: SERTRALINE HCL 50 MG TAB PO (09:29)
[2017-10-26] MEDS: MAGNESIUM OXIDE 400 MG TAB (MAG-OX) PO ×2 (09:30→20:31)
[2017-10-26] MEDS: CARVedilol 12.5 MG TAB PO ×2 (09:30→20:38)
[2017-10-26] MEDS: PANTOPRAZOLE 40MG TAB (PROTONIX) PO (09:31)
[2017-10-26] MEDS: traMADol 50 MG TAB PO ×2 (09:31→20:33)
[2017-10-26] MEDS: POTASSIUM CHLORIDE 10 MEQ SR TABLET PO ×2 (09:31→20:31)
[2017-10-26] MEDS: SIMETHICONE 80 MG CHEW TAB PO ×3 (09:31→20:33)
[2017-10-26] MEDS: VITAMIN D 1,000 INTERNATIONAL UNITS TABLET PO (09:31)
[2017-10-26] MEDS: ONDANSETRON 4 MG ORAL DISINTEGRATING TAB (Q0162 PER 1MG) PO ×2 (09:32→17:29)
[2017-10-26] MEDS: ALBUTEROL 90 MCG/ACT 8GM HFA INHALER INH (15:10)
[2017-10-26] MEDS: RIVAROXABAN 20 MG TAB (XARELTO) PO (17:29)
[2017-10-26] MEDS: MIRTAZAPINE 15 MG TAB PO (20:33)
[2017-10-26] MEDS: LIDOCAINE 4% CREAM 5GM (LMX4) TOP (20:33)
[2017-10-27] MEDS: ONDANSETRON 4 MG ORAL DISINTEGRATING TAB (Q0162 PER 1MG) PO ×2 (04:42→15:03)
[2017-10-27] MEDS: traMADol 50 MG TAB PO (04:44)
[2017-10-27] MEDS: CIPROFLOXACIN 500 MG TAB PO ×2 (05:24→18:41)
[2017-10-27] MEDS: ACETAMINOPHEN 500 MG TAB PO ×3 (05:24→21:47)
[2017-10-27 06:26] LABS: HEMATOCRIT 26.5 % (36.0-47.0); HEMOGLOBIN 8.7 g/dl (12.0-15.5); MEAN CORPUSCULAR HEMOGLOBIN 29.7 pg (27.0-33.0); MEAN CORPUSCULAR HGB CONC 32.8 g/dl (32.0-36.5); MEAN CORPUSCULAR VOLUME 90.4 fl (80.0-96.0); PLATELET COUNT, AUTOMATED 819 10^3/uL (150-450); RED BLOOD COUNT 2.93 10^6/uL (4.00-5.40); RED CELL DISTRIBUTION WIDTH 17.2 % (11.5-14.5)
[2017-10-27 06:44] LABS: ALBUMIN/GLOBULIN RATIO 0.54 (1.00-1.93); ALKALINE PHOSPHATASE 73 U/L (45-117); ALT/SGPT 18 U/L (12-78); ANION GAP 6 MEQ/L (8-16); AST/SGOT 18 U/L (7-37); BILIRUBIN,TOTAL 0.2 MG/DL (0.2-1.0); BLOOD UREA NITROGEN 9 MG/DL (7-18); C REACTIVE PROTEIN QUANTITATIV 6.16 MG/DL (0.00-0.30); CALCIUM LEVEL 7.8 MG/DL (8.8-10.2); CARBON DIOXIDE LEVEL 27 MEQ/L (21-32); CHLORIDE LEVEL 103 MEQ/L (98-107); CREATININE FOR GFR 0.68 MG/DL (0.55-1.30); GLOMERULAR FILTRATION RATE > 60.0 (>39); GLUCOSE, FASTING 88 MG/DL (70-100); POTASSIUM SERUM 4.5 MEQ/L (3.5-5.1); SODIUM LEVEL 136 MEQ/L (136-145); TOTAL PROTEIN 5.7 GM/DL (6.4-8.2)
[2017-10-27] MEDS: ALBUTEROL 90 MCG/ACT 8GM HFA INHALER INH (07:41)
[2017-10-27] MEDS: CARVedilol 12.5 MG TAB PO ×2 (09:48→21:46)
[2017-10-27] MEDS: VITAMIN D 1,000 INTERNATIONAL UNITS TABLET PO (09:48)
[2017-10-27] MEDS: POTASSIUM CHLORIDE 10 MEQ SR TABLET PO ×2 (09:48→21:46)
[2017-10-27] MEDS: SIMETHICONE 80 MG CHEW TAB PO ×3 (09:48→21:45)
[2017-10-27] MEDS: SERTRALINE HCL 50 MG TAB PO (09:49)
[2017-10-27] MEDS: PANTOPRAZOLE 40MG TAB (PROTONIX) PO (09:49)
[2017-10-27] MEDS: MAGNESIUM OXIDE 400 MG TAB (MAG-OX) PO ×2 (09:49→21:45)
[2017-10-27] MEDS: amLODIPine 5 MG TAB PO (09:49)
[2017-10-27] MEDS: ASCORBIC ACID 500 MG TAB PO (09:49)
[2017-10-27] MEDS: ANASTROZOLE 1MG TAB PO (09:51)
[2017-10-27 10:29] LABS: BASO # 0.1 10^3/uL (0.0-0.2); BASO % 0.5 % (0.0-1.0); EOS # 0.1 10^3/uL (0.0-0.50); EOS % 0.9 % (0.0-3.0); HEMATOCRIT 27.5 % (36.0-47.0); HEMOGLOBIN 8.8 g/dl (12.0-15.5); LYMPH # 2.3 10^3/uL (1.5-4.5); LYMPH % 16.6 % (24.0-44.0); MEAN CORPUSCULAR HEMOGLOBIN 29.3 pg (27.0-33.0); MEAN CORPUSCULAR VOLUME 91.7 fl (80.0-96.0); MONO # 0.7 10^3/uL (0.0-0.8); MONO % 4.8 % (0.0-5.0); NEUTROPHILS # 10.4 10^3/uL (1.8-7.7); NEUTROPHILS % 76.2 % (36.0-66.0); PLATELET COUNT, AUTOMATED 882 10^3/uL (150-450); RED CELL DISTRIBUTION WIDTH 17.1 % (11.5-14.5); WHITE BLOOD COUNT 13.6 10^3/uL (4.0-10.0)
[2017-10-27 10:51] LABS: ERYTHROCYTE SEDIMENTATION RATE 108 mm/hr (0-30)
[2017-10-27 10:53] LABS: C REACTIVE PROTEIN QUANTITATIV 6.42 MG/DL (0.00-0.30)
[2017-10-27] MEDS: RIVAROXABAN 20 MG TAB (XARELTO) PO (18:41)
[2017-10-27] MEDS: LIDOCAINE 4% CREAM 5GM (LMX4) TOP (21:00)
[2017-10-27] MEDS: MIRTAZAPINE 15 MG TAB PO (21:46)
[2017-10-28] MEDS: traMADol 50 MG TAB PO ×2 (03:26→08:27)
[2017-10-28] MEDS: CIPROFLOXACIN 500 MG TAB PO ×2 (05:14→18:14)
[2017-10-28] MEDS: ACETAMINOPHEN 500 MG TAB PO ×3 (05:15→21:59)
[2017-10-28] MEDS: ALBUTEROL 90 MCG/ACT 8GM HFA INHALER INH (08:04)
[2017-10-28] MEDS: SIMETHICONE 80 MG CHEW TAB PO ×3 (08:26→21:58)
[2017-10-28] MEDS: POTASSIUM CHLORIDE 10 MEQ SR TABLET PO ×2 (08:26→21:59)
[2017-10-28] MEDS: CARVedilol 12.5 MG TAB PO ×2 (08:26→21:58)
[2017-10-28] MEDS: SERTRALINE HCL 50 MG TAB PO (08:27)
[2017-10-28] MEDS: ONDANSETRON 4 MG ORAL DISINTEGRATING TAB (Q0162 PER 1MG) PO ×2 (08:27→14:32)
[2017-10-28] MEDS: PANTOPRAZOLE 40MG TAB (PROTONIX) PO (08:27)
[2017-10-28] MEDS: amLODIPine 5 MG TAB PO (08:27)
[2017-10-28] MEDS: VITAMIN D 1,000 INTERNATIONAL UNITS TABLET PO (08:28)
[2017-10-28] MEDS: MAGNESIUM OXIDE 400 MG TAB (MAG-OX) PO ×2 (08:28→21:58)
[2017-10-28] MEDS: ASCORBIC ACID 500 MG TAB PO (08:28)
[2017-10-28] MEDS: ANASTROZOLE 1MG TAB PO (08:29)
[2017-10-28 09:52] LABS: BASO # 0.1 10^3/uL (0.0-0.2); BASO % 1.1 % (0.0-1.0); EOS # 0.1 10^3/uL (0.0-0.50); EOS % 0.9 % (0.0-3.0); HEMATOCRIT 27.4 % (36.0-47.0); HEMOGLOBIN 8.6 g/dl (12.0-15.5); IMMATURE GRANULOCYTE % 0.8 % (0-3.0); LYMPH # 1.9 10^3/uL (1.5-4.5); LYMPH % 16.1 % (24.0-44.0); MEAN CORPUSCULAR HEMOGLOBIN 29.2 pg (27.0-33.0); MEAN CORPUSCULAR HGB CONC 31.4 g/dl (32.0-36.5); MEAN CORPUSCULAR VOLUME 92.9 fl (80.0-96.0); MONO # 0.4 10^3/uL (0.0-0.8); MONO % 3.3 % (0.0-5.0); NEUTROPHILS # 9.1 10^3/uL (1.8-7.7); NEUTROPHILS % 77.8 % (36.0-66.0); PLATELET COUNT, AUTOMATED 849 10^3/uL (150-450); RED BLOOD COUNT 2.95 10^6/uL (4.00-5.40); WHITE BLOOD COUNT 11.7 10^3/uL (4.0-10.0)
[2017-10-28 10:16] LABS: ERYTHROCYTE SEDIMENTATION RATE > 140 mm/hr (0-30)
[2017-10-28] MEDS ORDERED: MIRALAX POWDER 255 GM BTL (POLYETHYLENE GLYCOL) PO (17:30)
[2017-10-28] MEDS ORDERED: MIRALAX *UNIT DOSE* 17GM PACKET PO (17:45)
[2017-10-28] MEDS: MIRALAX *UNIT DOSE* 17GM PACKET PO ×2 (17:46→18:14)
[2017-10-28] MEDS: LIDOCAINE 4% CREAM 5GM (LMX4) TOP (21:00)
[2017-10-28] MEDS: MIRTAZAPINE 15 MG TAB PO (21:59)
[2017-10-29] MEDS: ONDANSETRON 4 MG ORAL DISINTEGRATING TAB (Q0162 PER 1MG) PO (03:31)
[2017-10-29] MEDS: traMADol 50 MG TAB PO ×2 (03:32→11:14)
[2017-10-29] MEDS: CIPROFLOXACIN 500 MG TAB PO ×2 (05:40→17:10)
[2017-10-29] MEDS: ACETAMINOPHEN 500 MG TAB PO ×3 (05:40→21:52)
[2017-10-29 06:54] LABS: BASO # 0.1 10^3/uL (0.0-0.2); BASO % 1.1 % (0.0-1.0); EOS # 0.1 10^3/uL (0.0-0.50); HEMATOCRIT 26.2 % (36.0-47.0); HEMOGLOBIN 8.6 g/dl (12.0-15.5); IMMATURE GRANULOCYTE % 0.7 % (0-3.0); LYMPH # 2.1 10^3/uL (1.5-4.5); LYMPH % 20.7 % (24.0-44.0); MEAN CORPUSCULAR HEMOGLOBIN 29.6 pg (27.0-33.0); MEAN CORPUSCULAR HGB CONC 32.8 g/dl (32.0-36.5); MONO # 0.4 10^3/uL (0.0-0.8); MONO % 3.8 % (0.0-5.0); NEUTROPHILS # 7.5 10^3/uL (1.8-7.7); NEUTROPHILS % 72.7 % (36.0-66.0); PLATELET COUNT, AUTOMATED 770 10^3/uL (150-450); RED BLOOD COUNT 2.91 10^6/uL (4.00-5.40); RED CELL DISTRIBUTION WIDTH 16.5 % (11.5-14.5); WHITE BLOOD COUNT 10.3 10^3/uL (4.0-10.0)
[2017-10-29 07:13] LABS: C REACTIVE PROTEIN QUANTITATIV 5.51 MG/DL (0.00-0.30)
[2017-10-29] MEDS: ALBUTEROL 90 MCG/ACT 8GM HFA INHALER INH (08:08)
[2017-10-29 08:30] LABS: ERYTHROCYTE SEDIMENTATION RATE > 140 mm/hr (0-30)
[2017-10-29] MEDS: MAGNESIUM OXIDE 400 MG TAB (MAG-OX) PO ×2 (08:37→21:53)
[2017-10-29] MEDS: VITAMIN D 1,000 INTERNATIONAL UNITS TABLET PO (08:37)
[2017-10-29] MEDS: SIMETHICONE 80 MG CHEW TAB PO ×3 (08:37→21:53)
[2017-10-29] MEDS: amLODIPine 5 MG TAB PO (08:37)
[2017-10-29] MEDS: POTASSIUM CHLORIDE 10 MEQ SR TABLET PO ×2 (08:37→21:52)
[2017-10-29] MEDS: PANTOPRAZOLE 40MG TAB (PROTONIX) PO (08:37)
[2017-10-29] MEDS: SERTRALINE HCL 50 MG TAB PO (08:37)
[2017-10-29] MEDS: ASCORBIC ACID 500 MG TAB PO (08:37)
[2017-10-29] MEDS: CARVedilol 12.5 MG TAB PO ×2 (08:38→21:53)
[2017-10-29] MEDS: ANASTROZOLE 1MG TAB PO (08:38)
[2017-10-29] MEDS: MIRALAX *UNIT DOSE* 17GM PACKET PO ×2 (08:38→21:51)
[2017-10-29] MEDS ORDERED: LIDOCAINE 1% MDV 20ML VIAL As Ordered (15:16)
[2017-10-29] MEDS ORDERED: ONDANSETRON 4 MG ORAL DISINTEGRATING TAB (Q0162 PER 1MG) As Ordered (15:56)
[2017-10-29] MEDS: LIDOCAINE 4% CREAM 5GM (LMX4) TOP (21:00)
[2017-10-29] MEDS: MIRTAZAPINE 15 MG TAB PO (21:52)
[2017-10-30] MEDS: ACETAMINOPHEN 500 MG TAB PO ×3 (05:02→21:17)
[2017-10-30 06:51] LABS: BASO # 0.1 10^3/uL (0.0-0.2); BASO % 1.4 % (0.0-1.0); EOS # 0.1 10^3/uL (0.0-0.50); HEMATOCRIT 26.4 % (36.0-47.0); HEMOGLOBIN 8.5 g/dl (12.0-15.5); IMMATURE GRANULOCYTE % 0.5 % (0-3.0); LYMPH # 2.1 10^3/uL (1.5-4.5); LYMPH % 26.4 % (24.0-44.0); MEAN CORPUSCULAR HEMOGLOBIN 28.8 pg (27.0-33.0); MEAN CORPUSCULAR HGB CONC 32.2 g/dl (32.0-36.5); MEAN CORPUSCULAR VOLUME 89.5 fl (80.0-96.0); MONO # 0.4 10^3/uL (0.0-0.8); MONO % 4.4 % (0.0-5.0); NEUTROPHILS # 5.3 10^3/uL (1.8-7.7); NEUTROPHILS % 66.3 % (36.0-66.0); PLATELET COUNT, AUTOMATED 700 10^3/uL (150-450); RED BLOOD COUNT 2.95 10^6/uL (4.00-5.40); RED CELL DISTRIBUTION WIDTH 16.2 % (11.5-14.5)
[2017-10-30] MEDS: ONDANSETRON 4 MG ORAL DISINTEGRATING TAB (Q0162 PER 1MG) PO (06:55)
[2017-10-30] MEDS: MOM 30ML SUSPENSION UDC PO (06:55)
[2017-10-30 07:08] LABS: ANION GAP 7 MEQ/L (8-16); BLOOD UREA NITROGEN 13 MG/DL (7-18); CARBON DIOXIDE LEVEL 26 MEQ/L (21-32); CHLORIDE LEVEL 101 MEQ/L (98-107); CREATININE FOR GFR 0.64 MG/DL (0.55-1.30); GLOMERULAR FILTRATION RATE > 60.0 (>39); GLUCOSE, FASTING 87 MG/DL (70-100); POTASSIUM SERUM 4.5 MEQ/L (3.5-5.1); SODIUM LEVEL 134 MEQ/L (136-145)
[2017-10-30] MEDS: ALBUTEROL 90 MCG/ACT 8GM HFA INHALER INH (08:09)
[2017-10-30] MEDS: MIRALAX *UNIT DOSE* 17GM PACKET PO ×2 (08:23→21:00)
[2017-10-30] MEDS: PANTOPRAZOLE 40MG TAB (PROTONIX) PO (08:23)
[2017-10-30] MEDS: SIMETHICONE 80 MG CHEW TAB PO ×3 (08:23→21:17)
[2017-10-30] MEDS: CARVedilol 12.5 MG TAB PO ×2 (08:24→21:18)
[2017-10-30] MEDS: POTASSIUM CHLORIDE 10 MEQ SR TABLET PO ×2 (08:24→21:18)
[2017-10-30] MEDS: MAGNESIUM OXIDE 400 MG TAB (MAG-OX) PO ×2 (08:24→21:17)
[2017-10-30] MEDS: VITAMIN D 1,000 INTERNATIONAL UNITS TABLET PO (08:24)
[2017-10-30] MEDS: amLODIPine 5 MG TAB PO (08:25)
[2017-10-30] MEDS: SERTRALINE HCL 50 MG TAB PO (08:25)
[2017-10-30] MEDS: ASCORBIC ACID 500 MG TAB PO (08:25)
[2017-10-30] MEDS ORDERED: BISACODYL 10 MG SUPP PR (08:45)
[2017-10-30] MEDS: ANASTROZOLE 1MG TAB PO (10:21)
[2017-10-30] MEDS: DOCUSATE SODIUM 100 MG CAP PO (10:22)
[2017-10-30] MEDS: SENNA 8.6 MG TAB (SENOKOT) PO (10:22)
[2017-10-30] MEDS: RIVAROXABAN 20 MG TAB (XARELTO) PO (17:54)
[2017-10-30] MEDS: LIDOCAINE 4% CREAM 5GM (LMX4) TOP (21:00)
[2017-10-30] MEDS: MIRTAZAPINE 15 MG TAB PO (21:17)
[2017-10-31] MEDS: traMADol 50 MG TAB PO (00:14)
[2017-10-31] MEDS: ACETAMINOPHEN 500 MG TAB PO (05:42)
[2017-10-31 06:43] LABS: BASO # 0.1 10^3/uL (0.0-0.2); BASO % 1.4 % (0.0-1.0); EOS # 0.1 10^3/uL (0.0-0.50); EOS % 1.4 % (0.0-3.0); HEMATOCRIT 25.3 % (36.0-47.0); HEMOGLOBIN 8.3 g/dl (12.0-15.5); IMMATURE GRANULOCYTE % 0.6 % (0-3.0); LYMPH # 1.8 10^3/uL (1.5-4.5); LYMPH % 20.8 % (24.0-44.0); MEAN CORPUSCULAR HEMOGLOBIN 29.6 pg (27.0-33.0); MEAN CORPUSCULAR HGB CONC 32.8 g/dl (32.0-36.5); MEAN CORPUSCULAR VOLUME 90.4 fl (80.0-96.0); MONO # 0.4 10^3/uL (0.0-0.8); MONO % 4.1 % (0.0-5.0); NEUTROPHILS # 6.1 10^3/uL (1.8-7.7); NEUTROPHILS % 71.7 % (36.0-66.0); PLATELET COUNT, AUTOMATED 651 10^3/uL (150-450); WHITE BLOOD COUNT 8.6 10^3/uL (4.0-10.0)
[2017-10-31 06:59] LABS: ANION GAP 7 MEQ/L (8-16); BLOOD UREA NITROGEN 12 MG/DL (7-18); C REACTIVE PROTEIN QUANTITATIV 4.43 MG/DL (0.00-0.30); CALCIUM LEVEL 8.1 MG/DL (8.8-10.2); CARBON DIOXIDE LEVEL 27 MEQ/L (21-32); CHLORIDE LEVEL 102 MEQ/L (98-107); CREATININE FOR GFR 0.67 MG/DL (0.55-1.30); GLOMERULAR FILTRATION RATE > 60.0 (>39); GLUCOSE, FASTING 83 MG/DL (70-100); POTASSIUM SERUM 4.5 MEQ/L (3.5-5.1); SODIUM LEVEL 136 MEQ/L (136-145)
[2017-10-31 07:04] LABS: ERYTHROCYTE SEDIMENTATION RATE 106 mm/hr (0-30)
[2017-10-31] MEDS: ALBUTEROL 90 MCG/ACT 8GM HFA INHALER INH (07:28)
[2017-10-31] MEDS: MIRALAX *UNIT DOSE* 17GM PACKET PO (09:00)
[2017-10-31] MEDS: ANASTROZOLE 1MG TAB PO (09:58)
[2017-10-31] MEDS: PANTOPRAZOLE 40MG TAB (PROTONIX) PO (09:59)
[2017-10-31] MEDS: SERTRALINE HCL 50 MG TAB PO (09:59)
[2017-10-31] MEDS: ASCORBIC ACID 500 MG TAB PO (09:59)
[2017-10-31] MEDS: MAGNESIUM OXIDE 400 MG TAB (MAG-OX) PO (10:00)
[2017-10-31] MEDS: VITAMIN D 1,000 INTERNATIONAL UNITS TABLET PO (10:00)
[2017-10-31] MEDS: SIMETHICONE 80 MG CHEW TAB PO (10:00)
[2017-10-31] MEDS: amLODIPine 5 MG TAB PO (10:01)
[2017-10-31] MEDS: CARVedilol 12.5 MG TAB PO (10:02)
[2017-10-31] MEDS: POTASSIUM CHLORIDE 10 MEQ SR TABLET PO (10:02)
== END 2017-10-31 11:00 | DRG 470 ==
LOC: M MS5PR 10-23 23:56 → M ED 11:57 → M ED INP 14:37 → M MSPAV 16:51
PROC: 0SRS0J9 Replacement of Left Hip Joint, Femoral Surface with Synthetic Substitute, Cemented, Open Approach (ICD-10-PCS; principal; 2017-10-18 08:30)
PROC: 0S9B30Z Drainage of Left Hip Joint with Drainage Device, Percutaneous Approach (ICD-10-PCS; 2017-10-18 08:38)
DX: S72.002A Fracture of unspecified part of neck of left femur, initial encounter for closed fracture (principal); N17.9 Acute kidney failure, unspecified; N39.0 Urinary tract infection, site not specified; J98.11 Atelectasis; M96.842 Postprocedural seroma of a musculoskeletal structure following a musculoskeletal system procedure; R78.81 Bacteremia; R55 Syncope and collapse; K52.9 Noninfective gastroenteritis and colitis, unspecified; B96.29 Other Escherichia coli [E. coli] as the cause of diseases classified elsewhere; M10.9 Gout, unspecified; K59.00 Constipation, unspecified; Z79.899 Other long term (current) drug therapy; I48.91 Unspecified atrial fibrillation; I25.10 Atherosclerotic heart disease of native coronary artery without angina pectoris; J44.9 Chronic obstructive pulmonary disease, unspecified; I10 Essential (primary) hypertension; Z85.3 Personal history of malignant neoplasm of breast; R33.9 Retention of urine, unspecified; Z96.641 Presence of right artificial hip joint; F32.9 Major depressive disorder, single episode, unspecified; Z88.5 Allergy status to narcotic agent; Z88.8 Allergy status to other drugs, medicaments and biological substances; D72.829 Elevated white blood cell count, unspecified; W18.11XA Fall from or off toilet without subsequent striking against object, initial encounter; Y92.129 Unspecified place in nursing home as the place of occurrence of the external cause

== ENCOUNTER → 2017-10-15 | Outpatient (REF) | payer MEDICARE, MEDICAID ==
[2017-10-15 10:12] LABS: HEMATOCRIT 28.7 % (36.0-47.0); HEMOGLOBIN 10.1 g/dl (12.0-15.5); MEAN CORPUSCULAR HGB CONC 35.2 g/dl (32.0-36.5); MEAN CORPUSCULAR VOLUME 85.2 fl (80.0-96.0); PLATELET COUNT, AUTOMATED 334 10^3/uL (150-450); RED BLOOD COUNT 3.37 10^6/uL (4.00-5.40)
[2017-10-15 10:31] LABS: ANION GAP 8 MEQ/L (8-16); BLOOD UREA NITROGEN 48 MG/DL (7-18); CALCIUM LEVEL 8.4 MG/DL (8.8-10.2); CARBON DIOXIDE LEVEL 23 MEQ/L (21-32); CHLORIDE LEVEL 101 MEQ/L (98-107); CREATININE FOR GFR 1.25 MG/DL (0.55-1.30); GLUCOSE, FASTING 140 MG/DL (70-100); POTASSIUM SERUM 4.5 MEQ/L (3.5-5.1); SODIUM LEVEL 132 MEQ/L (136-145)
[2017-10-15 12:48] LABS: LACTIC ACID SEPSIS PROTOCOL 2.3 MMOL/L (0.4-2.0)
== END ==
LOC: SKLAB3 08:14
DX: R55 Syncope and collapse (principal); R19.7 Diarrhea, unspecified

== ENCOUNTER → 2017-11-03 | Outpatient (REF) | payer MEDICARE, MEDICAID ==
[2017-11-03 08:08] LABS: ANION GAP 8 MEQ/L (8-16); BLOOD UREA NITROGEN 15 MG/DL (7-18); CALCIUM LEVEL 8.3 MG/DL (8.8-10.2); CARBON DIOXIDE LEVEL 28 MEQ/L (21-32); CHLORIDE LEVEL 103 MEQ/L (98-107); CREATININE FOR GFR 0.67 MG/DL (0.55-1.30); GLOMERULAR FILTRATION RATE > 60.0 (>39); GLUCOSE, FASTING 88 MG/DL (70-100); POTASSIUM SERUM 4.6 MEQ/L (3.5-5.1); SODIUM LEVEL 139 MEQ/L (136-145)
[2017-11-03 08:14] LABS: HEMATOCRIT 29.8 % (36.0-47.0); HEMOGLOBIN 9.5 g/dl (12.0-15.5); MEAN CORPUSCULAR HEMOGLOBIN 29.1 pg (27.0-33.0); MEAN CORPUSCULAR HGB CONC 31.9 g/dl (32.0-36.5); MEAN CORPUSCULAR VOLUME 91.1 fl (80.0-96.0); PLATELET COUNT, AUTOMATED 689 10^3/uL (150-450); RED BLOOD COUNT 3.27 10^6/uL (4.00-5.40)
== END ==
LOC: SKLAB3 07:14
DX: I10 Essential (primary) hypertension (principal); S72.90XA Unspecified fracture of unspecified femur, initial encounter for closed fracture; Y92.89 Other specified places as the place of occurrence of the external cause; Y93.89 Activity, other specified; X58.XXXA Exposure to other specified factors, initial encounter; Y99.8 Other external cause status
CPT/HCPCS: 80048

== ENCOUNTER → 2017-11-10 | Outpatient (REF) ==
[2017-11-10 08:51] LABS: HEMATOCRIT 29.3 % (36.0-47.0); HEMOGLOBIN 9.5 g/dl (12.0-15.5); MEAN CORPUSCULAR HEMOGLOBIN 28.9 pg (27.0-33.0); MEAN CORPUSCULAR HGB CONC 32.4 g/dl (32.0-36.5); MEAN CORPUSCULAR VOLUME 89.1 fl (80.0-96.0); PLATELET COUNT, AUTOMATED 593 10^3/uL (150-450); RED BLOOD COUNT 3.29 10^6/uL (4.00-5.40); RED CELL DISTRIBUTION WIDTH 15.9 % (11.5-14.5); WHITE BLOOD COUNT 11.7 10^3/uL (4.0-10.0)
== END ==
LOC: SKLAB3 07:05
DX: D64.9 Anemia, unspecified (principal)

== ENCOUNTER → 2017-11-17 | Outpatient (REF) ==
[2017-11-17 08:32] LABS: HEMATOCRIT 32.4 % (36.0-47.0); HEMOGLOBIN 10.4 g/dl (12.0-15.5); MEAN CORPUSCULAR HGB CONC 32.1 g/dl (32.0-36.5); MEAN CORPUSCULAR VOLUME 90.3 fl (80.0-96.0); PLATELET COUNT, AUTOMATED 458 10^3/uL (150-450); RED BLOOD COUNT 3.59 10^6/uL (4.00-5.40); RED CELL DISTRIBUTION WIDTH 15.8 % (11.5-14.5); WHITE BLOOD COUNT 11.9 10^3/uL (4.0-10.0)
== END ==
LOC: SKLAB3 07:21
DX: D64.9 Anemia, unspecified (principal)

== ENCOUNTER → 2017-11-24 | Outpatient (REF) ==
[2017-11-24 09:34] LABS: HEMATOCRIT 35.1 % (36.0-47.0); HEMOGLOBIN 11.4 g/dl (12.0-15.5); MEAN CORPUSCULAR HEMOGLOBIN 29.2 pg (27.0-33.0); MEAN CORPUSCULAR HGB CONC 32.5 g/dl (32.0-36.5); PLATELET COUNT, AUTOMATED 504 10^3/uL (150-450); RED CELL DISTRIBUTION WIDTH 16.3 % (11.5-14.5); WHITE BLOOD COUNT 10.4 10^3/uL (4.0-10.0)
== END ==
LOC: SKLAB3 08:00
DX: D64.9 Anemia, unspecified (principal)

== ENCOUNTER → 2017-12-03 | Outpatient (REF) ==
[2017-12-03 16:07] LABS: HEMATOCRIT 33.8 % (36.0-47.0); HEMOGLOBIN 10.8 g/dl (12.0-15.5); MEAN CORPUSCULAR VOLUME 93.9 fl (80.0-96.0); PLATELET COUNT, AUTOMATED 359 10^3/uL (150-450); RED CELL DISTRIBUTION WIDTH 16.6 % (11.5-14.5); WHITE BLOOD COUNT 13.7 10^3/uL (4.0-10.0)
[2017-12-03 19:21] LABS: BLOOD UREA NITROGEN 23 MG/DL (7-18); CHLORIDE LEVEL 105 MEQ/L (98-107); CREATININE FOR GFR 0.89 MG/DL (0.55-1.30); GLOMERULAR FILTRATION RATE > 60.0 (>39); GLUCOSE, FASTING 78 MG/DL (70-100); POTASSIUM SERUM 4.5 MEQ/L (3.5-5.1); SODIUM LEVEL 137 MEQ/L (136-145)
[2017-12-03 19:22] LABS: ANION GAP 10 MEQ/L (8-16); CALCIUM LEVEL 8.6 MG/DL (8.8-10.2); CARBON DIOXIDE LEVEL 22 MEQ/L (21-32)
[2017-12-03 19:37] LABS: TROPONIN I < 0.02 NG/ML (< 0.10)
== END ==
LOC: SKLAB3 14:40
DX: R42 Dizziness and giddiness (principal)

== ENCOUNTER → 2018-01-19 | Outpatient (REF) | payer MEDICARE, MEDICAID ==
[2018-01-19 09:12] LABS: HEMATOCRIT 34.5 % (36.0-47.0); HEMOGLOBIN 11.3 g/dl (12.0-15.5); MEAN CORPUSCULAR HEMOGLOBIN 30.2 pg (27.0-33.0); MEAN CORPUSCULAR HGB CONC 32.8 g/dl (32.0-36.5); MEAN CORPUSCULAR VOLUME 92.2 fl (80.0-96.0); PLATELET COUNT, AUTOMATED 317 10^3/uL (150-450); RED BLOOD COUNT 3.74 10^6/uL (4.00-5.40); RED CELL DISTRIBUTION WIDTH 16.3 % (11.5-14.5); WHITE BLOOD COUNT 8.3 10^3/uL (4.0-10.0)
== END ==
LOC: SKLAB3 10:56
DX: D64.9 Anemia, unspecified (principal)
CPT/HCPCS: 85027

== ENCOUNTER → 2018-02-09 | Outpatient (REF) | payer MEDICARE, MEDICAID | LOC: SKLAB3 18:36 | DX: R39.89 Other symptoms and signs involving the genitourinary system (principal) | CPT/HCPCS: 87086 ==

== ENCOUNTER → 2018-02-10 | Outpatient (REF) | payer MEDICARE, MEDICAID ==
[2018-02-10 11:04] LABS: HEMATOCRIT 33.2 % (36.0-47.0); MEAN CORPUSCULAR HEMOGLOBIN 29.8 pg (27.0-33.0); MEAN CORPUSCULAR HGB CONC 33.1 g/dl (32.0-36.5); PLATELET COUNT, AUTOMATED 297 10^3/uL (150-450); RED BLOOD COUNT 3.69 10^6/uL (4.00-5.40); RED CELL DISTRIBUTION WIDTH 15.2 % (11.5-14.5); WHITE BLOOD COUNT 7.6 10^3/uL (4.0-10.0)
[2018-02-10 12:00] LABS: ANION GAP 11 MEQ/L (8-16); BLOOD UREA NITROGEN 17 MG/DL (7-18); CALCIUM LEVEL 8.7 MG/DL (8.8-10.2); CARBON DIOXIDE LEVEL 22 MEQ/L (21-32); CHLORIDE LEVEL 104 MEQ/L (98-107); GLOMERULAR FILTRATION RATE > 60.0 (>39); GLUCOSE, FASTING 119 MG/DL (70-100); POTASSIUM SERUM 4.3 MEQ/L (3.5-5.1); SODIUM LEVEL 137 MEQ/L (136-145)
== END ==
LOC: SKLAB3 07:21
DX: R10.9 Unspecified abdominal pain (principal)
CPT/HCPCS: 80048

== ENCOUNTER → 2018-02-23 | Outpatient (REF) | payer MEDICARE, MEDICAID ==
[2018-02-23 08:16] LABS: HEMATOCRIT 38.5 % (36.0-47.0); HEMOGLOBIN 12.6 g/dl (12.0-15.5); MEAN CORPUSCULAR HEMOGLOBIN 29.4 pg (27.0-33.0); MEAN CORPUSCULAR HGB CONC 32.7 g/dl (32.0-36.5); PLATELET COUNT, AUTOMATED 351 10^3/uL (150-450); RED BLOOD COUNT 4.28 10^6/uL (4.00-5.40); RED CELL DISTRIBUTION WIDTH 14.7 % (11.5-14.5); WHITE BLOOD COUNT 10.1 10^3/uL (4.0-10.0)
[2018-02-23 08:47] LABS: ANION GAP 9 MEQ/L (8-16); BLOOD UREA NITROGEN 15 MG/DL (7-18); CALCIUM LEVEL 9.5 MG/DL (8.8-10.2); CARBON DIOXIDE LEVEL 25 MEQ/L (21-32); CHLORIDE LEVEL 104 MEQ/L (98-107); CREATININE FOR GFR 0.63 MG/DL (0.55-1.30); GLOMERULAR FILTRATION RATE > 60.0 (>39); GLUCOSE, FASTING 85 MG/DL (70-100); POTASSIUM SERUM 4.3 MEQ/L (3.5-5.1); SODIUM LEVEL 138 MEQ/L (136-145)
== END ==
LOC: SKLAB3 07:00
DX: D64.9 Anemia, unspecified (principal); I10 Essential (primary) hypertension
CPT/HCPCS: 80048

== ENCOUNTER → 2018-03-23 | Outpatient (REF) | payer MEDICARE, MEDICAID ==
[2018-03-23 08:28] LABS: HEMOGLOBIN 12.4 g/dl (12.0-15.5); MEAN CORPUSCULAR HEMOGLOBIN 30.1 pg (27.0-33.0); MEAN CORPUSCULAR HGB CONC 32.6 g/dl (32.0-36.5); MEAN CORPUSCULAR VOLUME 92.2 fl (80.0-96.0); PLATELET COUNT, AUTOMATED 335 10^3/uL (150-450); RED BLOOD COUNT 4.12 10^6/uL (4.00-5.40); WHITE BLOOD COUNT 8.7 10^3/uL (4.0-10.0)
== END ==
LOC: SKLAB3 12:44
DX: D64.9 Anemia, unspecified (principal)
CPT/HCPCS: 85027

== ENCOUNTER → 2018-04-27 | Outpatient (REF) | payer MEDICARE, MEDICAID ==
[~2018-04-27] MED LIST: ACET-683 PO; ARIM1TAB5 PO; CARV12.5 PO; COLA100C5 PO; DULC10SU2 PR; ENEMENE6 PR; ENSULIQ64 PO; KLOR10TA76 PO; LIDO1CRE2 TOP; LISI10TA4 PO; LOPE2TAB3 PO; MAG-LIQ PO; MAG400TA PO; MAGN400C2 PO; MOM30SS PO; NORV5TAB PO; ONDA4TAB6 PO; PANT40TA3 PO; POLY33504 PO; REME15TA PO; SERT50TA PO; SIME80TA PO; TRAM50TA2 PO; TYLE325T5 PO; VENTAER INH; VITA500C24 PO; VITAD1000T PO; XARE20TA PO
[2018-04-27 07:46] LABS: HEMOGLOBIN 13.1 g/dl (12.0-15.5); MEAN CORPUSCULAR HEMOGLOBIN 30.8 pg (27.0-33.0); MEAN CORPUSCULAR HGB CONC 32.8 g/dl (32.0-36.5); MEAN CORPUSCULAR VOLUME 93.9 fl (80.0-96.0); PLATELET COUNT, AUTOMATED 358 10^3/uL (150-450); RED BLOOD COUNT 4.26 10^6/uL (4.00-5.40); WHITE BLOOD COUNT 8.3 10^3/uL (4.0-10.0)
== END ==
LOC: SKLAB3 13:35
PROVIDERS: ATTEND Family Medicine
DX: D64.9 Anemia, unspecified (principal); Z79.899 Other long term (current) drug therapy

== ENCOUNTER → 2018-05-25 | Outpatient (REF) | payer MEDICARE, MEDICAID ==
[~2018-05-25] MED LIST changes: +SERT-141 PO; -SERT50TA PO
[2018-05-25 09:01] LABS: HEMATOCRIT 37.8 % (36.0-47.0); HEMOGLOBIN 12.4 g/dl (12.0-15.5); MEAN CORPUSCULAR HEMOGLOBIN 30.4 pg (27.0-33.0); MEAN CORPUSCULAR HGB CONC 32.8 g/dl (32.0-36.5); MEAN CORPUSCULAR VOLUME 92.6 fl (80.0-96.0); PLATELET COUNT, AUTOMATED 306 10^3/uL (150-450); RED BLOOD COUNT 4.08 10^6/uL (4.00-5.40); WHITE BLOOD COUNT 8.3 10^3/uL (4.0-10.0)
[2018-05-25 09:32] LABS: ALBUMIN 3.9 GM/DL (3.2-5.2); ALT/SGPT 22 U/L (12-78); BILIRUBIN,TOTAL 0.5 MG/DL (0.2-1.0); BLOOD UREA NITROGEN 16 MG/DL (7-18); CARBON DIOXIDE LEVEL 24 MEQ/L (21-32); CHLORIDE LEVEL 103 MEQ/L (98-107); CREATININE FOR GFR 0.75 MG/DL (0.55-1.30); GLOMERULAR FILTRATION RATE > 60.0 (>39); GLUCOSE, FASTING 91 MG/DL (70-100); POTASSIUM SERUM 4.2 MEQ/L (3.5-5.1); SODIUM LEVEL 134 MEQ/L (136-145); TOTAL PROTEIN 7.6 GM/DL (6.4-8.2)
== END ==
LOC: SKLAB3 07:00
PROVIDERS: ATTEND Family Medicine
DX: D64.9 Anemia, unspecified (principal); I10 Essential (primary) hypertension

== ENCOUNTER → 2018-06-22 | Outpatient (REF) | payer MEDICARE, MEDICAID ==
[~2018-06-22] MED LIST changes: -SERT-141 PO; +SERT50TA PO
[2018-06-22 08:28] LABS: HEMATOCRIT 37.7 % (36.0-47.0); HEMOGLOBIN 12.5 g/dl (12.0-15.5); MEAN CORPUSCULAR HEMOGLOBIN 30.6 pg (27.0-33.0); MEAN CORPUSCULAR HGB CONC 33.2 g/dl (32.0-36.5); MEAN CORPUSCULAR VOLUME 92.2 fl (80.0-96.0); PLATELET COUNT, AUTOMATED 331 10^3/uL (150-450); RED BLOOD COUNT 4.09 10^6/uL (4.00-5.40); WHITE BLOOD COUNT 7.6 10^3/uL (4.0-10.0)
== END ==
LOC: SKLAB3 07:00
PROVIDERS: ATTEND Family Medicine
DX: D64.9 Anemia, unspecified (principal)

== ENCOUNTER → 2018-06-23 | Outpatient (REF) | payer MEDICARE, MEDICAID ==
[2018-06-23 12:07] LABS: BASO # 0.1 10^3/uL (0.0-0.2); BASO % 0.9 % (0.0-1.0); EOS # 0.2 10^3/uL (0.0-0.50); EOS % 2.2 % (0.0-3.0); HEMATOCRIT 36.7 % (36.0-47.0); HEMOGLOBIN 12.3 g/dl (12.0-15.5); LYMPH # 3.3 10^3/uL (1.5-4.5); LYMPH % 34.6 % (24.0-44.0); MEAN CORPUSCULAR HEMOGLOBIN 30.8 pg (27.0-33.0); MEAN CORPUSCULAR HGB CONC 33.5 g/dl (32.0-36.5); MONO # 0.4 10^3/uL (0.0-0.8); MONO % 4.5 % (0.0-5.0); NEUTROPHILS # 5.6 10^3/uL (1.8-7.7); NEUTROPHILS % 57.5 % (36.0-66.0); PLATELET COUNT, AUTOMATED 315 10^3/uL (150-450); RED BLOOD COUNT 3.99 10^6/uL (4.00-5.40); WHITE BLOOD COUNT 9.7 10^3/uL (4.0-10.0)
[2018-06-23 12:30] LABS: ALBUMIN 3.8 GM/DL (3.2-5.2); ALT/SGPT 19 U/L (12-78); BILIRUBIN,TOTAL 0.3 MG/DL (0.2-1.0); BLOOD UREA NITROGEN 16 MG/DL (7-18); CALCIUM LEVEL 8.9 MG/DL (8.8-10.2); CARBON DIOXIDE LEVEL 27 MEQ/L (21-32); CHLORIDE LEVEL 101 MEQ/L (98-107); CREATININE FOR GFR 0.74 MG/DL (0.55-1.30); GLOMERULAR FILTRATION RATE > 60.0 (>39); GLUCOSE, FASTING 93 MG/DL (70-100); POTASSIUM SERUM 4.4 MEQ/L (3.5-5.1); SODIUM LEVEL 134 MEQ/L (136-145); TOTAL PROTEIN 7.1 GM/DL (6.4-8.2)
[2018-06-23 13:18] LABS: CA15-3 ANTIGEN 28.5 U/ML (<32.4)
== END ==
LOC: SKLAB3 11:04
PROVIDERS: ATTEND Family Medicine
DX: Z85.3 Personal history of malignant neoplasm of breast (principal); Z79.899 Other long term (current) drug therapy

== ENCOUNTER → 2018-07-20 | Outpatient (REF) | payer MEDICARE, MEDICAID ==
[~2018-07-20] MED LIST changes: +SERT-141 PO; -SERT50TA PO
[2018-07-20 08:02] LABS: HEMATOCRIT 37.1 % (36.0-47.0); HEMOGLOBIN 12.6 g/dl (12.0-15.5); MEAN CORPUSCULAR HEMOGLOBIN 31.3 pg (27.0-33.0); MEAN CORPUSCULAR VOLUME 92.3 fl (80.0-96.0); PLATELET COUNT, AUTOMATED 291 10^3/uL (150-450); RED BLOOD COUNT 4.02 10^6/uL (4.00-5.40); WHITE BLOOD COUNT 8.7 10^3/uL (4.0-10.0)
== END ==
LOC: SKLAB3 07:00
PROVIDERS: ATTEND Family Medicine
DX: D64.9 Anemia, unspecified (principal)

== ENCOUNTER → 2018-08-24 | Outpatient (REF) | payer MEDICARE, MEDICAID ==
[2018-08-24 08:10] LABS: HEMATOCRIT 38.5 % (36.0-47.0); HEMOGLOBIN 12.7 g/dl (12.0-15.5); MEAN CORPUSCULAR HEMOGLOBIN 31.5 pg (27.0-33.0); MEAN CORPUSCULAR VOLUME 95.5 fl (80.0-96.0); PLATELET COUNT, AUTOMATED 342 10^3/uL (150-450); RED BLOOD COUNT 4.03 10^6/uL (4.00-5.40); WHITE BLOOD COUNT 7.7 10^3/uL (4.0-10.0)
[2018-08-24 08:37] LABS: BLOOD UREA NITROGEN 16 MG/DL (7-18); CARBON DIOXIDE LEVEL 26 MEQ/L (21-32); CHLORIDE LEVEL 103 MEQ/L (98-107); CREATININE FOR GFR 0.74 MG/DL (0.55-1.30); GLOMERULAR FILTRATION RATE > 60.0 (>39); GLUCOSE, FASTING 89 MG/DL (70-100); POTASSIUM SERUM 4.4 MEQ/L (3.5-5.1); SODIUM LEVEL 136 MEQ/L (136-145)
== END ==
LOC: SKLAB3 07:00
PROVIDERS: ATTEND Family Medicine
DX: D64.9 Anemia, unspecified (principal); I10 Essential (primary) hypertension

== ENCOUNTER → 2018-09-08 | Outpatient (CLI) | payer MEDICARE, MEDICAID ==
--- NOTE | 2018-09-08 09:46 | REP ---
ULTRASOUND ABDOMINAL AORTA: Real-time ultrasonographic evaluation of the abdominal aorta is performed. Very proximal aspect of the abdominal aorta at the level just below the diaphragm is not visualized due to overlying bowel gas. There is no evidence of abdominal aortic aneurysm at the level of the renal arteries or distal to that. Maximum AP diameter at the level of the renal arteries is 1.6 cm and distally 1.3 cm. Common iliac arteries are not dilated, right measuring 0.6 x 0.7 cm and left 0.8 x 0.8 cm. Scattered atherosclerotic calcifications are seen. IMPRESSION: Proximal abdominal aorta could not be visualized. Otherwise no evidence of abdominal aortic aneurysm. Electronically Signed by Chato Lewis MD 09/08/2018 12:32 P
== END ==
LOC: M RAD 07:41
PROVIDERS: ATTEND Family Medicine
DX: R10.9 Unspecified abdominal pain (principal); I70.0 Atherosclerosis of aorta

== ENCOUNTER → 2018-09-21 | Outpatient (REF) | payer MEDICARE, MEDICAID ==
[2018-09-21 08:17] LABS: HEMATOCRIT 37.1 % (36.0-47.0); HEMOGLOBIN 12.3 g/dl (12.0-15.5); MEAN CORPUSCULAR HEMOGLOBIN 31.7 pg (27.0-33.0); MEAN CORPUSCULAR HGB CONC 33.2 g/dl (32.0-36.5); MEAN CORPUSCULAR VOLUME 95.6 fl (80.0-96.0); PLATELET COUNT, AUTOMATED 267 10^3/uL (150-450); RED BLOOD COUNT 3.88 10^6/uL (4.00-5.40); WHITE BLOOD COUNT 7.5 10^3/uL (4.0-10.0)
== END ==
LOC: SKLAB3 07:00
PROVIDERS: ATTEND Family Medicine
DX: D64.9 Anemia, unspecified (principal)

== ENCOUNTER → 2018-10-19 | Outpatient (REF) | payer MEDICARE, MEDICAID ==
[2018-10-19 09:15] LABS: HEMATOCRIT 37.7 % (36.0-47.0); HEMOGLOBIN 12.7 g/dl (12.0-15.5); MEAN CORPUSCULAR HEMOGLOBIN 31.8 pg (27.0-33.0); MEAN CORPUSCULAR HGB CONC 33.7 g/dl (32.0-36.5); MEAN CORPUSCULAR VOLUME 94.5 fl (80.0-96.0); PLATELET COUNT, AUTOMATED 306 10^3/uL (150-450); RED BLOOD COUNT 3.99 10^6/uL (4.00-5.40); WHITE BLOOD COUNT 7.8 10^3/uL (4.0-10.0)
== END ==
LOC: SKLAB3 12:43
PROVIDERS: ATTEND Family Medicine
DX: D68.9 Coagulation defect, unspecified (principal)

== ENCOUNTER → 2018-11-30 | Outpatient (REF) | payer MEDICARE, MEDICAID ==
[~2018-11-30] MED LIST changes: +ACET1TAB55 PO; +AMLO25TA PO; +CHOL100029 PO; +ENSU1LIQ36 PO; +FAMO40TA3 PO; +FEVE650S3 PR; +MAALSUS19 PO; +MIRT1TAB PO; +ONDA-195 PO; +QC A650T3 PO; +SENO8.6T10 PO; +SERT25TA85 PO; -VITAD1000T PO; +VITMTA PO
[2018-11-30 08:00] LABS: HEMATOCRIT 36.9 % (36.0-47.0); HEMOGLOBIN 12.6 g/dl (12.0-15.5); MEAN CORPUSCULAR HEMOGLOBIN 32.3 pg (27.0-33.0); MEAN CORPUSCULAR HGB CONC 34.1 g/dl (32.0-36.5); MEAN CORPUSCULAR VOLUME 94.6 fl (80.0-96.0); PLATELET COUNT, AUTOMATED 305 10^3/uL (150-450); WHITE BLOOD COUNT 8.1 10^3/uL (4.0-10.0)
[2018-11-30 08:25] LABS: ALBUMIN 3.8 GM/DL (3.2-5.2); ALT/SGPT 22 U/L (12-78); BILIRUBIN,TOTAL 0.4 MG/DL (0.2-1.0); BLOOD UREA NITROGEN 13 MG/DL (7-18); CALCIUM LEVEL 9.1 MG/DL (8.8-10.2); CARBON DIOXIDE LEVEL 23 MEQ/L (21-32); CHLORIDE LEVEL 100 MEQ/L (98-107); CREATININE FOR GFR 0.74 MG/DL (0.55-1.30); GLOMERULAR FILTRATION RATE > 60.0 (>32); GLUCOSE, FASTING 84 MG/DL (70-100); POTASSIUM SERUM 4.1 MEQ/L (3.5-5.1); SODIUM LEVEL 132 MEQ/L (136-145); TOTAL PROTEIN 7.3 GM/DL (6.4-8.2)
== END ==
LOC: SKLAB3 07:00
PROVIDERS: ATTEND Family Medicine
DX: D64.9 Anemia, unspecified (principal); I10 Essential (primary) hypertension; I48.91 Unspecified atrial fibrillation

== ENCOUNTER → 2018-12-07 | Outpatient (REF) | payer MEDICARE, MEDICAID ==
[2018-12-07 09:30] LABS: BLOOD UREA NITROGEN 13 MG/DL (7-18); CALCIUM LEVEL 9.3 MG/DL (8.8-10.2); CARBON DIOXIDE LEVEL 26 MEQ/L (21-32); CHLORIDE LEVEL 101 MEQ/L (98-107); CREATININE FOR GFR 0.68 MG/DL (0.55-1.30); GLOMERULAR FILTRATION RATE > 60.0 (>32); GLUCOSE, FASTING 94 MG/DL (70-100); POTASSIUM SERUM 4.2 MEQ/L (3.5-5.1); SODIUM LEVEL 134 MEQ/L (136-145)
== END ==
LOC: SKLAB3 07:00
PROVIDERS: ATTEND Family Medicine
DX: E87.1 Hypo-osmolality and hyponatremia (principal)

== ENCOUNTER 2018-12-10 10:07 | Emergency (ER) | payer MEDICARE, MEDICAID ==
[~2018-12-10] VITALS: Ht 157.5 cm; Wt 44.5 kg
[~2018-12-10 10:07] MED LIST changes: -ACET1TAB55 PO; -AMLO25TA PO; -ENSU1LIQ36 PO; -FAMO40TA3 PO; -FEVE650S3 PR; -MAALSUS19 PO; -MIRT1TAB PO; -ONDA-195 PO; -QC A650T3 PO; -SENO8.6T10 PO; -SERT25TA85 PO; -VITMTA PO
--- NOTE | 2018-12-10 10:58 | REP ---
CT MAXILLOFACIAL BONES: HISTORY: Trauma. FINDINGS: Zygomatic arches are intact. Paranasal sinuses are clear. Bony sinus margins are intact. There is soft tissue swelling and a dressing is seen overlying the superior orbital margin on the left consistent with a soft tissue laceration here. No orbital fracture is appreciated. The bony nasal septum deviates somewhat to the left without a visible beak. There are carious left anterior maxillary incisors. No mandibular fracture is appreciated. Heavy vascular calcification is noted. IMPRESSION: No facial fracture is seen. Electronically Signed by Frank Valdes MD 12/10/2018 11:05 A
--- NOTE | 2018-12-10 10:59 | REP ---
CT STUDY OF THE CERVICAL SPINE WITHOUT CONTRAST: HISTORY: Trauma. TECHNIQUE: Helical scanning is acquired and overlapping 2 mm high resolution axial images were generated and reviewed at bone and soft tissue window settings. Coronal and sagittal multiplanar re-formations images are generated. CT FINDINGS: Cervical vertebral body heights are preserved. Alignment is normal. No fracture or collapse is seen. There are degenerative spondylosis changes at each level from C3-4 through C6-7. Osteoarthritic facet hypertrophy is noted in the mid cervical spine bilaterally. The left C3-4 facet joint is ankylosed. Prevertebral soft tissues are not widened. Heavy vascular calcification is noted. There is a hypodense nodule in the left lobe of the thyroid gland measuring 2.2 cm in diameter. IMPRESSION: No fracture seen. Degenerative spondylosis changes. Left thyroid nodule noted incidentally. Electronically Signed by Frank Valdes MD 12/10/2018 11:06 A
--- NOTE | 2018-12-10 11:19 | REP ---
CT brain without contrast: History: Trauma. Comparison head CT study is from October 15, 2017. CT findings: Preliminary digital iuss master analyst radiograph is unremarkable. There is a dressing and some soft tissue swelling in the left frontal region at the superior orbital margin. No skull fracture is appreciated. The bony calvarium is intact. No intraorbital hematoma or other abnormality is observed. There is fairly heavy vascular calcification in the distal carotid arteries bilaterally. There is generalized volume loss. Mild small vessel changes are seen in the periventricular white matter of the supratentorial brain. There is no evidence of intracranial hemorrhage. No mass, infarct, extra-axial fluid collection, or midline shift is appreciated. Impression: Diffuse atrophy, small vessel changes, vascular calcification. No acute intracranial abnormality. Left frontal scalp swelling. No fracture seen. Electronically Signed by Frank Valdes MD 12/10/2018 12:16 P
[2018-12-10] MEDS ORDERED: SERT25TA85 PO (11:37)
[2018-12-10] MEDS ORDERED: MAALSUS19 PO (11:37)
[2018-12-10] MEDS ORDERED: QC A650T3 PO (11:37)
[2018-12-10] MEDS ORDERED: ONDA-195 PO (11:37)
[2018-12-10] MEDS ORDERED: VITMTA PO (11:37)
[2018-12-10] MEDS ORDERED: ACET1TAB55 PO (11:37)
[2018-12-10] MEDS ORDERED: FAMO40TA3 PO (11:37)
[2018-12-10] MEDS ORDERED: ENSU1LIQ36 PO (11:37)
[2018-12-10] MEDS ORDERED: SENO8.6T10 PO (11:37)
[2018-12-10] MEDS ORDERED: MIRT1TAB PO (11:37)
[2018-12-10] MEDS ORDERED: AMLO25TA PO (11:37)
[2018-12-10] MEDS ORDERED: FEVE650S3 PR (11:37)
[2018-12-10] MEDS ORDERED: LIDOCAINE W/EPINEPHRINE 1% 20ML VIAL As Ordered ONE (13:08)
[2018-12-10 14:19] VITALS: BP 158/78
[2018-12-10] MEDS ORDERED: LIDOCAINE W/EPINEPHRINE 1% 20ML VIAL SC ONE (14:45)
== END 2018-12-10 14:35 | disposition home or self-care (01) ==
LOC: EDBD 10:07 → M ED 10:07
DX: R55 Syncope and collapse (principal); S01.119A Laceration without foreign body of unspecified eyelid and periocular area, initial encounter; S06.0X9A Concussion with loss of consciousness of unspecified duration, initial encounter; W19.XXXA Unspecified fall, initial encounter; Y92.129 Unspecified place in nursing home as the place of occurrence of the external cause; Y93.9 Activity, unspecified; Y99.9 Unspecified external cause status; M47.812 Spondylosis without myelopathy or radiculopathy, cervical region; E04.1 Nontoxic single thyroid nodule; I25.10 Atherosclerotic heart disease of native coronary artery without angina pectoris; F32.9 Major depressive disorder, single episode, unspecified; Z85.3 Personal history of malignant neoplasm of breast; I48.91 Unspecified atrial fibrillation; I10 Essential (primary) hypertension; J44.9 Chronic obstructive pulmonary disease, unspecified; Z79.899 Other long term (current) drug therapy; Z88.5 Allergy status to narcotic agent; Z88.8 Allergy status to other drugs, medicaments and biological substances

== ENCOUNTER → 2018-12-27 | Outpatient (REF) | payer MEDICARE, MEDICAID ==
[~2018-12-27] MED LIST changes: +ACET1TAB55 PO; +AMLO25TA PO; +ENSU1LIQ36 PO; +FAMO40TA3 PO; +FEVE650S3 PR; +MAALSUS19 PO; +MIRT1TAB PO; +ONDA-195 PO; +QC A650T3 PO; +SENO8.6T10 PO; +SERT25TA85 PO; +VITMTA PO
== END ==
LOC: EEVIPCON 11:00 → SKLAB3 11:00
PROVIDERS: ATTEND Family Medicine
DX: S01.80XA Unspecified open wound of other part of head, initial encounter (principal); Y92.89 Other specified places as the place of occurrence of the external cause; Y93.89 Activity, other specified; Y99.8 Other external cause status; X58.XXXA Exposure to other specified factors, initial encounter

== ENCOUNTER → 2019-02-01 | Outpatient (REF) | payer MEDICARE, MEDICAID ==
[2019-02-01 07:58] LABS: HEMATOCRIT 39.3 % (36.0-47.0); HEMOGLOBIN 12.8 g/dl (12.0-15.5); MEAN CORPUSCULAR HEMOGLOBIN 31.9 pg (27.0-33.0); MEAN CORPUSCULAR HGB CONC 32.6 g/dl (32.0-36.5); PLATELET COUNT, AUTOMATED 312 10^3/uL (150-450); RED BLOOD COUNT 4.01 10^6/uL (4.00-5.40); WHITE BLOOD COUNT 8.6 10^3/uL (4.0-10.0)
== END ==
LOC: SKLAB3 07:00
PROVIDERS: ATTEND Family Medicine
DX: D64.9 Anemia, unspecified (principal)

== ENCOUNTER → 2019-02-05 | Outpatient (REF) | payer MEDICARE, MEDICAID | LOC: SKLAB3 08:56 | PROVIDERS: ATTEND Family Medicine | DX: Z86.14 Personal history of Methicillin resistant Staphylococcus aureus infection (principal) ==

== ENCOUNTER → 2019-02-12 | Outpatient (REF) | payer MEDICARE, MEDICAID | LOC: SKLAB3 08:53 | PROVIDERS: ATTEND Family Medicine | DX: Z86.14 Personal history of Methicillin resistant Staphylococcus aureus infection (principal) ==

== ENCOUNTER → 2019-02-22 | Outpatient (REF) | payer MEDICARE, MEDICAID ==
[2019-02-22 09:33] LABS: HEMATOCRIT 38.8 % (36.0-47.0); HEMOGLOBIN 12.4 g/dl (12.0-15.5); MEAN CORPUSCULAR HEMOGLOBIN 31.8 pg (27.0-33.0); MEAN CORPUSCULAR VOLUME 99.5 fl (80.0-96.0); PLATELET COUNT, AUTOMATED 327 10^3/uL (150-450)
[2019-02-22 10:04] LABS: BLOOD UREA NITROGEN 10 MG/DL (7-18); CALCIUM LEVEL 9.4 MG/DL (8.8-10.2); CARBON DIOXIDE LEVEL 26 MEQ/L (21-32); CHLORIDE LEVEL 102 MEQ/L (98-107); CREATININE FOR GFR 0.69 MG/DL (0.55-1.30); GLOMERULAR FILTRATION RATE > 60.0 (>32); GLUCOSE, FASTING 114 MG/DL (70-100); POTASSIUM SERUM 3.9 MEQ/L (3.5-5.1); SODIUM LEVEL 135 MEQ/L (136-145)
== END ==
LOC: SKLAB3 07:00
PROVIDERS: ATTEND Family Medicine
DX: D64.9 Anemia, unspecified (principal); I48.91 Unspecified atrial fibrillation; I10 Essential (primary) hypertension

== ENCOUNTER → 2019-03-22 | Outpatient (REF) | payer MEDICARE, MEDICAID ==
[2019-03-22 09:06] LABS: HEMOGLOBIN 12.4 g/dl (12.0-15.5); MEAN CORPUSCULAR HEMOGLOBIN 32.1 pg (27.0-33.0); MEAN CORPUSCULAR HGB CONC 33.5 g/dl (32.0-36.5); MEAN CORPUSCULAR VOLUME 95.9 fl (80.0-96.0); PLATELET COUNT, AUTOMATED 392 10^3/uL (150-450); RED BLOOD COUNT 3.86 10^6/uL (4.00-5.40); WHITE BLOOD COUNT 8.9 10^3/uL (4.0-10.0)
== END ==
LOC: SKLAB3 14:32
PROVIDERS: ATTEND Family Medicine
DX: D64.9 Anemia, unspecified (principal)

== ENCOUNTER → 2019-04-26 | Outpatient (REF) | payer MEDICARE, MEDICAID ==
[2019-04-26 08:19] LABS: HEMATOCRIT 37.7 % (36.0-47.0); HEMOGLOBIN 12.2 g/dl (12.0-15.5); MEAN CORPUSCULAR HEMOGLOBIN 31.5 pg (27.0-33.0); MEAN CORPUSCULAR HGB CONC 32.4 g/dl (32.0-36.5); MEAN CORPUSCULAR VOLUME 97.4 fl (80.0-96.0); PLATELET COUNT, AUTOMATED 285 10^3/uL (150-450); RED BLOOD COUNT 3.87 10^6/uL (4.00-5.40); WHITE BLOOD COUNT 8.3 10^3/uL (4.0-10.0)
== END ==
LOC: SKLAB3 11:49
PROVIDERS: ATTEND Family Medicine
DX: D64.9 Anemia, unspecified (principal)

== ENCOUNTER → 2019-05-24 | Outpatient (REF) | payer MEDICARE, MEDICAID ==
[2019-05-24 09:08] LABS: ALBUMIN 3.6 GM/DL (3.2-5.2); ALT/SGPT 25 U/L (12-78); BILIRUBIN,TOTAL 0.4 MG/DL (0.2-1.0); BLOOD UREA NITROGEN 11 MG/DL (7-18); CALCIUM LEVEL 8.9 MG/DL (8.8-10.2); CARBON DIOXIDE LEVEL 26 MEQ/L (21-32); CHLORIDE LEVEL 104 MEQ/L (98-107); CREATININE FOR GFR 0.71 MG/DL (0.55-1.30); GLOMERULAR FILTRATION RATE > 60.0 (>32); GLUCOSE, FASTING 81 MG/DL (70-100); POTASSIUM SERUM 4.2 MEQ/L (3.5-5.1); SODIUM LEVEL 134 MEQ/L (136-145); TOTAL PROTEIN 6.8 GM/DL (6.4-8.2)
== END ==
LOC: SKLAB3 07:00
PROVIDERS: ATTEND Family Medicine
DX: Z79.899 Other long term (current) drug therapy (principal)

== ENCOUNTER → 2019-07-21 | Outpatient (REF) | payer MEDICARE, MEDICAID ==
[2019-07-21 10:37] LABS: BASO # 0.1 10^3/uL (0.0-0.2); EOS # 0.2 10^3/uL (0.0-0.5); EOS % 2.8 % (0.0-3.0); HEMATOCRIT 32.8 % (36.0-47.0); LYMPH # 2.5 10^3/uL (1.5-5.0); MEAN CORPUSCULAR HGB CONC 33.5 g/dl (32.0-36.5); MEAN CORPUSCULAR VOLUME 95.3 fl (80.0-96.0); MONO # 0.5 10^3/uL (0.0-0.8); MONO % 6.2 % (0.0-5.0); NEUTROPHILS # 4.8 10^3/uL (1.5-8.5); NEUTROPHILS % 58.8 % (36.0-66.0); PLATELET COUNT, AUTOMATED 239 10^3/uL (150-450); RED BLOOD COUNT 3.44 10^6/uL (4.00-5.40); WHITE BLOOD COUNT 8.1 10^3/uL (4.0-10.0)
[2019-07-21 11:12] LABS: ALBUMIN 3.3 GM/DL (3.2-5.2); ALT/SGPT 28 U/L (12-78); BILIRUBIN,TOTAL 0.4 MG/DL (0.2-1.0); BLOOD UREA NITROGEN 15 MG/DL (7-18); CALCIUM LEVEL 9.2 MG/DL (8.8-10.2); CARBON DIOXIDE LEVEL 26 MEQ/L (21-32); CHLORIDE LEVEL 103 MEQ/L (98-107); CREATININE FOR GFR 0.72 MG/DL (0.55-1.30); GLOMERULAR FILTRATION RATE > 60.0 (>32); GLUCOSE, FASTING 85 MG/DL (70-100); SODIUM LEVEL 134 MEQ/L (136-145); TOTAL PROTEIN 6.3 GM/DL (6.4-8.2)
== END ==
LOC: SKLAB3 09:38
PROVIDERS: ATTEND Nurse Practitioner Family
DX: C50.919 Malignant neoplasm of unspecified site of unspecified female breast (principal)

== ENCOUNTER → 2019-08-17 | Outpatient (REF) | LOC: SKLAB3 09:39 | PROVIDERS: ATTEND Internal Medicine | DX: Z11.59 Encounter for screening for other viral diseases (principal); Z53.9 Procedure and treatment not carried out, unspecified reason ==

== ENCOUNTER → 2019-08-24 | Outpatient (REF) | payer MEDICARE, MEDICAID ==
[2019-08-24 09:35] LABS: BLOOD UREA NITROGEN 12 MG/DL (7-18); CALCIUM LEVEL 9.2 MG/DL (8.8-10.2); CARBON DIOXIDE LEVEL 23 MEQ/L (21-32); CHLORIDE LEVEL 104 MEQ/L (98-107); CREATININE FOR GFR 0.72 MG/DL (0.55-1.30); GLOMERULAR FILTRATION RATE > 60.0 (>32); GLUCOSE, FASTING 75 MG/DL (70-100); POTASSIUM SERUM 4.4 MEQ/L (3.5-5.1); SODIUM LEVEL 136 MEQ/L (136-145)
== END ==
LOC: SKLAB3 08:39
PROVIDERS: ATTEND Family Medicine
DX: I10 Essential (primary) hypertension (principal)

== ENCOUNTER → 2019-10-22 | Outpatient (REF) | payer MEDICARE, MEDICAID ==
[2019-10-22 16:48] LABS: BASO # 0.1 10^3/uL (0.0-0.2); BASO % 0.9 % (0.0-1.0); EOS # 0.3 10^3/uL (0.0-0.5); EOS % 3.3 % (0.0-3.0); HEMATOCRIT 35.4 % (36.0-47.0); HEMOGLOBIN 11.8 g/dl (12.0-15.5); LYMPH # 3.5 10^3/uL (1.5-5.0); LYMPH % 40.1 % (24.0-44.0); MEAN CORPUSCULAR HEMOGLOBIN 31.5 pg (27.0-33.0); MEAN CORPUSCULAR HGB CONC 33.3 g/dl (32.0-36.5); MEAN CORPUSCULAR VOLUME 94.4 fl (80.0-96.0); MONO # 0.4 10^3/uL (0.0-0.8); MONO % 4.4 % (0.0-5.0); NEUTROPHILS # 4.4 10^3/uL (1.5-8.5); PLATELET COUNT, AUTOMATED 281 10^3/uL (150-450); RED BLOOD COUNT 3.75 10^6/uL (4.00-5.40); WHITE BLOOD COUNT 8.7 10^3/uL (4.0-10.0)
[2019-10-22 17:13] LABS: ALBUMIN 3.6 GM/DL (3.2-5.2); ALT/SGPT 31 U/L (12-78); BILIRUBIN,TOTAL 0.3 MG/DL (0.2-1.0); BLOOD UREA NITROGEN 16 MG/DL (7-18); CALCIUM LEVEL 8.9 MG/DL (8.8-10.2); CARBON DIOXIDE LEVEL 24 MEQ/L (21-32); CHLORIDE LEVEL 102 MEQ/L (98-107); CREATININE FOR GFR 0.75 MG/DL (0.55-1.30); GLOMERULAR FILTRATION RATE > 60.0 (>32); GLUCOSE, FASTING 90 MG/DL (70-100); POTASSIUM SERUM 4.3 MEQ/L (3.5-5.1); SODIUM LEVEL 136 MEQ/L (136-145); TOTAL PROTEIN 6.9 GM/DL (6.4-8.2)
[2019-10-22 18:03] LABS: CA15-3 ANTIGEN 21.2 U/ML (<32.4)
== END ==
LOC: SKLAB3 07:00
PROVIDERS: ATTEND Family Medicine
DX: I10 Essential (primary) hypertension (principal); I48.91 Unspecified atrial fibrillation; Z79.01 Long term (current) use of anticoagulants; Z85.3 Personal history of malignant neoplasm of breast

== ENCOUNTER → 2019-12-30 | Outpatient (REF) | payer MEDICARE, MEDICAID ==
[~2019-12-30] MED LIST changes: +PANT40TA29 PO; -PANT40TA3 PO
--- NOTE | 2020-01-01 09:15 | ECGEPIP ---
[facility] Test Date: 2019-12-30 Pat Name: ASHTYN SIMENTAL Department: Room: - Gender: Female Chief Deputy Court Clerk: RUTH : 1940 Requested By: Bisi Fisher Order Number: [id number] Reading MD: Josiah Nj Measurements Intervals [place] Rate: 72 P: [place]: 0 QRS: -14 QRSD: 97 T: 20 QT: 407 QTc: 445 Interpretive Statements Atrial flutter/fibrillation with controlled ventricular response Incomplete right bundle branch block Nonspecific ST-T wave abnormalities No significant change when compared to prior tracing of 12/03/2017 Electronically Signed on 01-01-2020 9:15:12 EDT by Josiah Nj
== END ==
LOC: SKLAB3 07:11
DX: I10 Essential (primary) hypertension (principal); R07.9 Chest pain, unspecified

== ENCOUNTER → 2020-01-25 | Outpatient (REF) | payer MEDICARE, MEDICAID ==
[2020-01-25 08:35] LABS: BASO # 0.1 10^3/uL (0.0-0.2); BASO % 1.2 % (0.0-1.0); EOS # 0.3 10^3/uL (0.0-0.5); EOS % 3.7 % (0.0-3.0); LYMPH # 3.5 10^3/uL (1.5-5.0); LYMPH % 41.8 % (24.0-44.0); MEAN CORPUSCULAR HEMOGLOBIN 30.7 pg (27.0-33.0); MEAN CORPUSCULAR HGB CONC 32.4 g/dl (32.0-36.5); MEAN CORPUSCULAR VOLUME 94.6 fl (80.0-96.0); MONO # 0.3 10^3/uL (0.0-0.8); MONO % 3.3 % (0.0-5.0); NEUTROPHILS # 4.2 10^3/uL (1.5-8.5); NEUTROPHILS % 49.6 % (36.0-66.0); PLATELET COUNT, AUTOMATED 280 10^3/uL (150-450); RED BLOOD COUNT 3.91 10^6/uL (4.00-5.40); WHITE BLOOD COUNT 8.4 10^3/uL (4.0-10.0)
[2020-01-25 09:08] LABS: ALBUMIN 3.5 GM/DL (3.2-5.2); ALT/SGPT 24 U/L (12-78); BILIRUBIN,TOTAL 0.4 MG/DL (0.2-1.0); BLOOD UREA NITROGEN 8 MG/DL (7-18); CALCIUM LEVEL 8.8 MG/DL (8.8-10.2); CARBON DIOXIDE LEVEL 24 MEQ/L (21-32); CHLORIDE LEVEL 107 MEQ/L (98-107); CREATININE FOR GFR 0.65 MG/DL (0.55-1.30); GLOMERULAR FILTRATION RATE > 60.0 (>32); GLUCOSE, FASTING 80 MG/DL (70-100); POTASSIUM SERUM 3.7 MEQ/L (3.5-5.1); SODIUM LEVEL 139 MEQ/L (136-145); TOTAL PROTEIN 6.7 GM/DL (6.4-8.2)
== END ==
LOC: SKLAB3 07:00
DX: D64.9 Anemia, unspecified (principal); I10 Essential (primary) hypertension; I48.91 Unspecified atrial fibrillation

== ENCOUNTER → 2020-02-17 | Outpatient (REF) | payer MEDICARE, MEDICAID | LOC: SKLAB3 07:00 | DX: R63.4 Abnormal weight loss (principal) ==

== ENCOUNTER → 2020-02-17 | Outpatient (REF) | LOC: SKLAB3 11:24 | DX: Z20.828 Contact with and (suspected) exposure to other viral communicable diseases (principal) ==

== ENCOUNTER → 2020-02-23 | Outpatient (REF) | payer MEDICARE ==
[~2020-02-23] MED LIST changes: +LISI10TA22 PO; -LISI10TA4 PO; -MAG400TA PO; +MAGN400T35 PO; +MIRT-62 PO; -REME15TA PO; +SIME80CH5 PO; -SIME80TA PO
== END ==
LOC: SKLAB3 02-22 13:30 → EDSTATUS 03-17 13:49
PROVIDERS: ATTEND Internal Medicine
DX: Z20.828 Contact with and (suspected) exposure to other viral communicable diseases (principal)

== ENCOUNTER → 2020-03-01 | Outpatient (REF) | payer MEDICARE | LOC: SKLAB3 08:00 | PROVIDERS: ATTEND Internal Medicine | DX: Z20.828 Contact with and (suspected) exposure to other viral communicable diseases (principal) ==

== ENCOUNTER → 2020-03-08 | Outpatient (REF) | payer MEDICARE | LOC: SKLAB3 08:00 | PROVIDERS: ATTEND Internal Medicine | DX: Z20.828 Contact with and (suspected) exposure to other viral communicable diseases (principal) ==

== ENCOUNTER → 2020-03-15 | Outpatient (REF) | payer MEDICARE, MEDICAID ==
[~2020-03-15] MED LIST changes: -LISI10TA22 PO; +LISI10TA4 PO; +MAG400TA PO; -MAGN400T35 PO; -SIME80CH5 PO; +SIME80TA PO
== END ==
LOC: SKLAB3 07:10
DX: Z20.828 Contact with and (suspected) exposure to other viral communicable diseases (principal)

== ENCOUNTER → 2020-03-22 | Outpatient (REF) | payer MEDICARE | LOC: SKLAB3 10:20 | PROVIDERS: ATTEND Family Medicine | DX: Z20.828 Contact with and (suspected) exposure to other viral communicable diseases (principal) ==

== ENCOUNTER → 2020-03-29 | Outpatient (REF) | payer MEDICARE | LOC: SKLAB3 07:00 | DX: Z20.828 Contact with and (suspected) exposure to other viral communicable diseases (principal) ==

== ENCOUNTER → 2020-03-30 | Outpatient (REF) | payer MEDICARE ==
[2020-03-30 11:04] LABS: HEMATOCRIT 33.6 % (36.0-47.0); HEMOGLOBIN 10.9 g/dl (12.0-15.5); MEAN CORPUSCULAR HEMOGLOBIN 30.4 pg (27.0-33.0); MEAN CORPUSCULAR HGB CONC 32.4 g/dl (32.0-36.5); MEAN CORPUSCULAR VOLUME 93.9 fl (80.0-96.0); PLATELET COUNT, AUTOMATED 250 10^3/uL (150-450); RED BLOOD COUNT 3.58 10^6/uL (4.00-5.40)
[2020-03-30 11:41] LABS: BLOOD UREA NITROGEN 10 MG/DL (7-18); CALCIUM LEVEL 8.5 MG/DL (8.8-10.2); CARBON DIOXIDE LEVEL 26 MEQ/L (21-32); CHLORIDE LEVEL 108 MEQ/L (98-107); CREATININE FOR GFR 0.63 MG/DL (0.55-1.30); GLOMERULAR FILTRATION RATE > 60.0 (>32); GLUCOSE, FASTING 96 MG/DL (70-100); POTASSIUM SERUM 3.5 MEQ/L (3.5-5.1); SODIUM LEVEL 141 MEQ/L (136-145)
== END ==
LOC: SKLAB3 07:00
DX: R41.82 Altered mental status, unspecified (principal)

== ENCOUNTER → 2020-04-05 | Outpatient (REF) | payer MEDICARE | LOC: SKLAB3 07:11 | DX: Z20.828 Contact with and (suspected) exposure to other viral communicable diseases (principal) ==

== ENCOUNTER → 2020-04-11 | Outpatient (REF) | payer MEDICARE ==
[2020-04-11 10:17] LABS: PERCENT SATURATION 24.2 % (13.2-45.0)
== END ==
LOC: SKLAB3 07:00
DX: D64.9 Anemia, unspecified (principal)

== ENCOUNTER → 2020-04-12 | Outpatient (REF) | payer MEDICARE | LOC: SKLAB3 09:53 | PROVIDERS: ATTEND Internal Medicine | DX: Z11.52 Encounter for screening for COVID-19 (principal) ==

== ENCOUNTER → 2020-04-12 | Outpatient (REF) | payer MEDICARE | LOC: SKLAB3 09:54 | PROVIDERS: ATTEND Internal Medicine | DX: Z11.52 Encounter for screening for COVID-19 (principal) ==

== ENCOUNTER → 2020-04-19 | Outpatient (REF) | payer MEDICARE | LOC: SKLAB3 07:00 | PROVIDERS: ATTEND Internal Medicine | DX: Z11.52 Encounter for screening for COVID-19 (principal) ==

== ENCOUNTER → 2020-04-25 | Outpatient (REF) | payer MEDICARE ==
[~2020-04-25] MED LIST changes: +LISI10TA22 PO; -LISI10TA4 PO; -MAG400TA PO; +MAGN400T35 PO; +SIME80CH5 PO; -SIME80TA PO
[2020-04-25 10:52] LABS: BLOOD UREA NITROGEN 10 MG/DL (7-18); CALCIUM LEVEL 8.7 MG/DL (8.8-10.2); CARBON DIOXIDE LEVEL 28 MEQ/L (21-32); CHLORIDE LEVEL 104 MEQ/L (98-107); CHOLESTEROL LEVEL 181 MG/DL (<200); CHOLESTEROL RISK RATIO 3.549 (<5); CREATININE FOR GFR 0.75 MG/DL (0.55-1.30); GLOMERULAR FILTRATION RATE > 60.0 (>32); GLUCOSE, FASTING 103 MG/DL (70-100); HDL CHOLESTEROL 51 MG/DL (>40); LDL CHOLESTEROL 114 MG/DL (<100); NON-HDL-C 130 MG/DL; POTASSIUM SERUM 3.3 MEQ/L (3.5-5.1); SODIUM LEVEL 137 MEQ/L (136-145); TRIGLYCERIDES LEVEL 78 MG/DL (<150)
[2020-04-25 11:50] LABS: TOTAL 25(OH) VITAMIN D 35.4 NG/ML (30.0-100.0)
== END ==
LOC: SKLAB3 07:03
DX: D64.9 Anemia, unspecified (principal); I10 Essential (primary) hypertension; Z79.899 Other long term (current) drug therapy

== ENCOUNTER → 2020-04-26 | Outpatient (REF) | payer MEDICARE | LOC: SKLAB3 06:42 | PROVIDERS: ATTEND Internal Medicine | DX: Z20.822 Contact with and (suspected) exposure to COVID-19 (principal) ==

== ENCOUNTER → 2020-05-02 | Outpatient (REF) | payer MEDICARE ==
[2020-05-02 09:45] LABS: BLOOD UREA NITROGEN 10 MG/DL (7-18); CALCIUM LEVEL 8.8 MG/DL (8.8-10.2); CARBON DIOXIDE LEVEL 24 MEQ/L (21-32); CHLORIDE LEVEL 104 MEQ/L (98-107); CREATININE FOR GFR 0.78 MG/DL (0.55-1.30); GLOMERULAR FILTRATION RATE > 60.0 (>32); GLUCOSE, FASTING 123 MG/DL (70-100); POTASSIUM SERUM 3.5 MEQ/L (3.5-5.1); SODIUM LEVEL 139 MEQ/L (136-145)
== END ==
LOC: SKLAB3 14:54
DX: E87.6 Hypokalemia (principal)

== ENCOUNTER → 2020-05-03 | Outpatient (REF) | payer MEDICARE | LOC: SKLAB3 15:03 | PROVIDERS: ATTEND Internal Medicine | DX: Z20.822 Contact with and (suspected) exposure to COVID-19 (principal) ==

== ENCOUNTER 2020-05-05 10:32 | Emergency (ER) | payer MEDICARE ==
[~2020-05-05 10:32] MED LIST changes: -LISI10TA22 PO; +LISI10TA4 PO; +MAG400TA PO; -MAGN400T35 PO; -SIME80CH5 PO; +SIME80TA PO
[2020-05-05] MEDS ORDERED: CARVedilol 12.5 MG TAB PO ONE (11:00)
[2020-05-05] MEDS ORDERED: lisinopriL 20 MG TAB PO ONE (11:00)
--- NOTE | 2020-05-05 11:03 | REP ---
INDICATION: trauma. COMPARISON: Comparison radiographs of the left hip are from the October 23, 2017.. TECHNIQUE: AP view of the pelvis and AP and frogleg views of the left hip are obtained. FINDINGS: AP view of the pelvis shows an intact bony pelvic ring. No pelvic or sacral fracture is appreciated. Vascular calcification is seen in a normal caliber aorta. Bilateral hip prostheses are seen in good position. An ileus pattern is seen in the bowel gas with air filled loops of large and small bowel throughout. AP and frogleg views of the left hip show vascular calcification. No fracture or subluxation is seen. IMPRESSION: Bilateral hip prostheses in place. Ileus pattern in the bowel gas. No fracture or other acute bony abnormality seen. <Electronically signed by Jaiden Valdes > 05/05/20 2064
[2020-05-05 11:09] VITALS: BP 210/106
--- OUTSIDE RECORDS SUMMARY | 2020-05-05 11:23 | CCD ---
Author Author [facility] Organization [facility] Address Unknown Phone Unavailable Care Team Providers Care Anti Tank Missileman Name Role Phone JW CUADRA MD Unavailable Unavailable JW CUADRA MD Unavailable Unavailable JW CUADRA MD Unavailable Unavailable JW CUADRA MD Unavailable Unavailable JW CUADRA MD Unavailable Unavailable JW CUADRA MD Unavailable Unavailable JW CUADRA MD Unavailable Unavailable JW CUADRA MD Unavailable Unavailable JW CUADRA MD Unavailable Unavailable JW CUADRA MD Unavailable Unavailable JW CUADRA MD Unavailable Unavailable JW CUADRA MD Unavailable Unavailable JW CUADRA MD Unavailable Unavailable JW CUADRA MD Unavailable Unavailable JW CUADRA MD Unavailable Unavailable JW CUADRA MD Unavailable Unavailable JW CUADRA MD Unavailable Unavailable JW CUADRA MD Unavailable Unavailable JW CUADRA MD Unavailable Unavailable JW CUADRA MD Unavailable Unavailable VENECIAJW KOHLER MD Unavailable Unavailable VENECIAJW KOHLER MD Unavailable Unavailable JW CUADRA MD Unavailable Unavailable VENECIA, JW MD Unavailable Unavailable VENECIA, JW MD Unavailable Unavailable VENECIA, JW MD Unavailable Unavailable VENECIA, JW MD Unavailable Unavailable VENECIA, JW MD Unavailable Unavailable VENECIA, JW MD Unavailable Unavailable VENECIA, JW MD Unavailable Unavailable VENECIA, JW MD Unavailable Unavailable VENECIA, JW MD Unavailable Unavailable VENECIA, JW MD Unavailable Unavailable VENECIA, JW MD Unavailable Unavailable VENECIA, JW MD Unavailable Unavailable VENECIA, JW MD Unavailable Unavailable VENECIA, JW MD Unavailable Unavailable VENECIA, JW MD Unavailable Unavailable VENECIA, JW MD Unavailable Unavailable VENECIA, JW MD Unavailable Unavailable VENECIA, JW MD Unavailable Unavailable VENECIA, JW MD Unavailable Unavailable Re-disclosure Warning The records that you are about to access may contain information from federally-assisted alcohol or drug abuse programs. If such information is present, then the following federally mandated warning applies: This information has been disclosed to you from records protected by federal confidentiality rules (42 CFR part 2). The federal rules prohibit you from making any further disclosure of this information unless further disclosure is expressly permitted by the written consent of the person to whom it pertains or as otherwise permitted by 42 CFR part 2. A general authorization for the release of medical or other information is NOT sufficient for this purpose. The Federal rules restrict any use of the information to criminally investigate or prosecute any alcohol or drug abuse patient.The records that you are about to access may contain highly sensitive health information, the redisclosure of which is protected by Article 27-F of the [facility] Public Health law. If you continue you may have access to information: Regarding HIV / AIDS; Provided by facilities licensed or operated by the [facility] Office of Mental Health; or Provided by the [facility] Office for People With Developmental Disabilities. If such information is present, then the following [facility] mandated warning applies: This information has been disclosed to you from confidential records which are protected by state law. State law prohibits you from making any further disclosure of this information without the specific written consent of the person to whom it pertains, or as otherwise permitted by law. Any unauthorized further disclosure in violation of state law may result in a fine or alf sentence or both. A general authorization for the release of medical or other information is NOT sufficient authorization for further disc losure. Family History Family Member Name Family Member Gender Family Member Status Date o f Status Description Data Source(s) Unknown Male Problem [facility] ([facility]) Encounters Encounter Providers Location Date Indications Data Source(s ) Outpatient Attender: JW CUADRA MD ER-CTCMEDONC 11/24/2019 0 7:40:00 AM EDT [facility] [place] [address] [place] [address] 11/08/2019 12:00:00 AM EDT eCW1 ([facility]) Outpatient Attender: JW CUADRA MD 07/22/2019 02:26:0 0 PM EDT [facility] Admission cancelled. Disregard status an d admitted date. Insurance Providers Payer name Policy type / Coverage type Policy ID Covered green party ID Covered green party's relationship to chandler Policy [place] Plan Information MEDICARE COMPLETE [id number] SP [id number] MEDICARE COMPLETE [id number] SP [id number] [place] [id number] SP [id number] [employer] [id number] S [id number] MEDICAID [id number] SP [id number] ANSI-Medicaid [id number] MEDICAID [id number] S [id number] [facility] MEDICARE [id number] S [id number] [facility] MEDICARE [id number] S [id number] [facility] MEDICARE [id number] S [id number] MEDICAID [id number] S [id number] [facility] MEDICARE [id number] S [id number] MEDICAID [id number] S [id number] [facility] MEDICARE [id number] S [id number] [place] [id number] Self [id number] [facility] ([facility]) Commercial [id number] Self [id number] [place]ap [place] [id number] Self [id number] [facility] ([facility]) Commercial [id number] Self [id number] [place]ap [place] [id number] Self [id number] [facility] ([facility]) Commercial [id number] Self [id number] MEDICARE [id number] SP [id number] A [place] [id number] Self [id number] [facility] ([facility]) Commercial [id number] Self [id number] MEDICAID M [id number] S [id number] MEDICARE COMPLETE-UHC O [id number] S [id number] MEDICARE COMPLETE [id number] SP [id number] MEDICAID M [id number] Self [id number] UHC UNITED MEDICARE COMPLETE G [id number] Self [id number] [facility] MEDICARE MCRADVANT [id number] S [id number] MEDICARE [id number] S [id number] A [facility] [id number] S [id number] [id number] [id number] S [id number] A [employer] [id number] S [id number] Problems, Conditions, and Diagnoses Code Display Name Description Problem Type Effective Dates Data Source(s) Z79.811 [facility] (current) use of aromatase inh ibitors [facility] (CURRENT) USE OF AROMATASE INHIBITORS Diagnosis 11/24/2019 07:40:00 AM EDT [facility] Z85.3 Personal history of malignant neoplasm o f breast PERSONAL HISTORY OF MALIGNANT NEOPLASM OF BREAST Diagnosis 11/24/2019 07:40:00 AM EDT [facility] Results ID Date Data Source [id number] 04/26/2020 07:00:00 AM EST [facility] Name Value Range Interpretation Code Description Data Enedina rce(s) Supporting Document(s) SARS coronavirus 2 RNA Not Detected [facility] This lab was ordered by [facility] and reported by [facility]. ID Date Data Source [id number] 04/19/2020 08:00:00 AM EST [facility] Name Value Range Interpretation Code Description Data Enedina rce(s) Supporting Document(s) SARS coronavirus 2 RNA Not Detected [facility] [place] This lab was ordered by [facility] and reported by [facility]. ID Date Data Source [id number] 04/12/2020 07:36:00 AM EST [facility] Name Value Range Interpretation Code Description Data Enedina rce(s) Supporting Document(s) SARS coronavirus 2 RNA Not Detected [facility] [place] This lab was ordered by [facility] and reported by [facility]. ID Date Data Source [id number] 04/05/2020 09:00:00 AM EST [facility] Name Value Range Interpretation Code Description Data Enedina rce(s) Supporting Document(s) SARS coronavirus 2 RNA [facility] This lab was ordered by [facility] and reported by [facility]. ID Date Data Source [id number] 03/29/2020 10:00:00 AM EST [facility] Name Value Range Interpretation Code Description Data Enedina rce(s) Supporting Document(s) SARS coronavirus 2 RNA [facility] This lab was ordered by [facility] and reported by [facility]. ID Date Data Source [id number] 03/22/2020 07:30:00 AM EST [facility] Name Value Range Interpretation Code Description Data Enedina rce(s) Supporting Document(s) SARS coronavirus 2 RNA [facility] This lab was ordered by [facility] and reported by [facility]. ID Date Data Source [id number] 03/15/2020 06:15:00 AM EST [facility] Name Value Range Interpretation Code Description Data Enedina rce(s) Supporting Document(s) SARS coronavirus 2 RNA [facility] This lab was ordered by [facility] and reported by [facility]. ID Date Data Source [id number] 03/08/2020 10:10:00 AM EST [facility] Name Value Range Interpretation Code Description Data Enedina rce(s) Supporting Document(s) SARS coronavirus 2 RNA [facility] This lab was ordered by [facility] and reported by [facility]. ID Date Data Source [id number] 03/01/2020 11:00:00 AM EST [facility] Name Value Range Interpretation Code Description Data Enedina rce(s) Supporting Document(s) SARS coronavirus 2 RNA [facility] This lab was ordered by [facility] and reported by [facility]. ID Date Data Source [id number] 02/23/2020 08:00:00 AM EST [facility] Name Value Range Interpretation Code Description Data Enedina rce(s) Supporting Document(s) SARS coronavirus 2 RNA [facility] This lab was ordered by [facility] and reported by [facility]. ID Date Data Source [id number] 02/17/2020 12:23:00 PM EST [facility] Name Value Range Interpretation Code Description Data Enedina rce(s) Supporting Document(s) SARS coronavirus 2 RNA [facility] This lab was ordered by [facility] and reported by [facility]. ID Date Data Source [id number] 11/24/2019 07:46:00 PM EDT [facility] [place] [address] [address] FOLLOW UP NOTENAME: ASHTYN SIMENTAL APHYSICIAN: JW CUADRA, MDDATE OF SERVICE: 11/24/19DATE OF : 36ACCOUNT #: [id number]: ASHTYN SIMENTALDate: Nov 24, 2019DOB: 1940Physician: Kristin CraigBIvetteS.Age: 79Note Title: Follow UpDiagnosis:Primary - C50.912 - Malignant neoplasm of unspecified site of left femalebreast, Diagnosed 2019 (Active)Secondary - M89.8X9 - Other specified disorders of bone, unspecified site,Diagnosed 2015 (Active)Secondary - I48.91 - Unspecified atrial fibrillation, Diagnosed 2015(Active)Secondary - I10 - Essential (primary) hypertension, Diagnosed 2015(Active)Problems / Chief Complaint:Pt is seen for oncology follow-up.History of Present Illness:PROBLEM LIST#1. Left breast carcinoma, 2.5 cm, T2 N0 M0, stage II A. Tumor, grade 2. ERpositive, KS negative, HER-2 2+, equivocal, not amplified by FISH.#2. Started on Arimidex November 12, 2011.HISTORY OF PRESENT ILLNESS.Pt is a 75-year-old female with history of left breast carcinoma, 2.5centimeters, T2 N0 M0, stage IIa, grade 2 tumor, ER positive, KS negative,HER-2/kiah 2+ equivocal, not amplified by fish. She has been on adjuvantanastrozole since November 12, 2011.Patient informed consent for telemedicinePatient was explained the telehealth process in simple language that he/shecould understand. We described the expected risks and benefits of thetelehealth services. We discussed available alternatives. We discussed therisks of use of technology and the risk of distance and limitation of inabilityto do a hands on examination. We also discussed the risks of possible breach ofhealth geographic information systems manager while using technology. After this discussionpatient gave verbal informed consent for the use of telemedicine.Visit: November 23art time: 4:10 PMStop time 4:30 PMThis conversation was held on the patient's cell phone [phone]. Patientstates that she is doing fine. She walks at the retirement with a walker.She denies anorexia, weight loss. No fever or sweats. No abdominal pain orbone pain.Past Medical History:AnxietyAtrial fibrillationBreast CancerCOPDHypertensionPast Surgical History:Hysterectomy - partialRight hip ORIF in 2017Mastectomy in 2011 - partialCataract removal in 1988Allergies:oxycodone paxilCurrent Medications:Amitriptyline HCl 10 mg (of 10 mg) Tablet Oral at bedtime (Apr 24, 2016)Arimidex 1 mg (of 1 mg) Tablet Oral daily (Oct 27, 2015)TraMADol HCl 1 mg (of 50 mg) Tablet Oral q 6 hours (Mar 06, 2016)8 Hour Arthritis Pain Reliever Tablet, controlled release Oral (Start Date -unknown)Albuterol Sulfate HFA Aerosol, solution Inhalation (Start Date - unknown)AmLODIPine Besylate 1 Tablet (of 2.5 mg) Oral daily (Start Date - unknown)Arimidex 1 Tablet (of 1 mg) Oral daily (Start Date - unknown)Carvedilol 1 Tablet (of 12.5 mg) Oral b.i.d. (Start Date - unknown)Docusate Sodium Capsule Oral (Start Date - unknown)DuoNeb (0.5- 2.5 (3) mg/3mL) Solution Inhalation daily (Start Date - unknown)Klor-Con 10 10 meq (of 10 meq) Tablet, controlled release Oral b.i.d. (StartDate - unknown)Lidocaine Cream Topical (Start Date - unknown)Lisinopril 1 Tablet (of 10 mg) Oral daily (Start Date - unknown)MiraLax 1 scoop(s) Powder Oral daily PRN (Start Date - unknown)Mirtazapine 7.5 mg (of 7.5 mg) Tablet Oral at bedtime (Start Date - unknown)Pepcid Tablet Oral (Start Date - unknown)Sertraline HCl 50 (50 mg) Tablet Oral daily (Start Date - unknown)Simethicone Capsule Oral t.i.d. (Start Date - unknown)Tab-A-Ave 1 Tablet Oral daily (Start Date - unknown)Xarelto (20 mg) Tablet Oral at bedtime (Start Date - unknown)Social History:Ms. SIMENTAL is . She is a daily smoker. She is an active drinker. drinkssome beer.Family History:Ms. SIMENTAL's mother is . Ms. SIMENTAL's father is . Mother withhistory of breast cancer at age 79. Father with prostate cancer in 1986. Motherwith colon cancer in 2003. 2 brothers with prostate cancer.Review of Systems:ConstitutionalAbnormal - fatigued , . sleeps for 3-4 hrs, then wakes up and cant go backto sleep..appetite fair.Allergic/ImmunologicNormal - No reactions.EyesAbnormal - just got vision check 20/20 in one eye, 20/30 in other eye.wearingglasses.ENMTAbnormal - Hearing loss bilat.EndocrineNormal - No diabetes, thyroid disease or hormone replacement. No hot flashesor night sweats.Hematologic/LymphaticNormal - No easy bruising or bleeding. The patient denies any tender orpalpable lymph nodes.potassium was low but is being treated.BreastsNormal - No abnormal masses of breast, no nipple discharge or pain.RespiratoryNormal - No dyspnea on exertion, chest pain, cough or hemoptysis.CardiovascularAbnormal - atrial fibrillation.GastrointestinalNormal - No nausea, vomiting, diarrhea, GI b leeding, or constipation. Nochange in bowel habits, no heartburn or early satiety.Genitourinary (F)Abnormal - has a Aden cath due to urinary retentionMusculoskeletalAbnormal - Arthritis in left arm and right shoulder.IntegumentaryNormal - No chronic rashes, inflammation, ulcerations or skin changes.NeurologicNormal - No headache, blurred vision, and no areas of focal weakness ornumbness. Normal gait. No sensory problems.PsychiatricAbnormal - taking sertraline and trazodoneVital Signs:Vitals are not available for this patient.Performance Status:3 - Capable of only limited self-care, confined to b ed or chair more than 50%of waking hours. (ECOG)Physical Exam:Physical Exam- Author is not available for this patient.Laboratory:Most recent lab results are not available for this patient.Other test results are not available for this patient.Impression:#1. Left breast carcinoma..#2. Abdominal distention and constipationPlan:#1. Left breast carcinoma -Patient is currently in a retirement in [place].Labs from October 22, 2019 hemoglobin 11.8 hematocrit 35.4 WBC 8.7 platelets 281glucose 90 BUN 16 creatinine 0.75 normal electrolytes calcium 8.9 normal liverpanel CA 15 3 normal at 21.2Overall her symptoms do not show any evidence of recurrence of malignancy.Continue Arimidex 1 milligram orally daily.Completes 10 year course in .She is already over the age of 73 and I feel that further screening mammogramsare of limited benefit.I will continue to follow her annually with breast exams.Again as the patient is in a retirement and has very limited mobility, Iwill plan to see her once yearly.Rossana ctronically signed by:Jw DupontvaCC:[facility] Name Value Range Interpretation Code Description Data Enedina rce(s) Supporting Document(s) Procedure
[2020-05-05 12:49] VITALS: BP 201/106
== END 2020-05-05 12:53 | disposition home or self-care (01) ==
LOC: EDBD 10:32 → EDSEX 10:32 → M ED 10:32
DX: S70.02XA Contusion of left hip, initial encounter (principal); W01.0XXA Fall on same level from slipping, tripping and stumbling without subsequent striking against object, initial encounter; Y92.129 Unspecified place in nursing home as the place of occurrence of the external cause; Y93.9 Activity, unspecified; Y99.9 Unspecified external cause status; I10 Essential (primary) hypertension; I48.91 Unspecified atrial fibrillation; I25.10 Atherosclerotic heart disease of native coronary artery without angina pectoris; J44.9 Chronic obstructive pulmonary disease, unspecified; Z96.0 Presence of urogenital implants; Z96.643 Presence of artificial hip joint, bilateral; F17.200 Nicotine dependence, unspecified, uncomplicated; Z88.6 Allergy status to analgesic agent; Z88.8 Allergy status to other drugs, medicaments and biological substances; Z79.899 Other long term (current) drug therapy

== ENCOUNTER → 2020-05-10 | Outpatient (REF) | payer MEDICARE ==
[~2020-05-10] MED LIST changes: +LISI10TA22 PO; -LISI10TA4 PO; -MAG400TA PO; +MAGN400T35 PO; +SIME80CH5 PO; -SIME80TA PO
== END ==
LOC: SKLAB3 07:00
PROVIDERS: ATTEND Internal Medicine
DX: Z11.52 Encounter for screening for COVID-19 (principal)

== ENCOUNTER → 2020-05-17 | Outpatient (REF) | payer MEDICARE | LOC: SKLAB3 11:33 | PROVIDERS: ATTEND Internal Medicine | DX: Z20.822 Contact with and (suspected) exposure to COVID-19 (principal) ==

== ENCOUNTER → 2020-05-24 | Outpatient (REF) | payer MEDICARE | LOC: SKLAB3 14:44 | PROVIDERS: ATTEND Internal Medicine | DX: Z20.822 Contact with and (suspected) exposure to COVID-19 (principal) ==

== ENCOUNTER → 2020-05-31 | Outpatient (REF) | payer MEDICARE | LOC: SKLAB3 07:00 | PROVIDERS: ATTEND Internal Medicine | DX: Z20.822 Contact with and (suspected) exposure to COVID-19 (principal) ==

== ENCOUNTER → 2020-06-14 | Outpatient (REF) | payer MEDICARE | LOC: SKLAB3 14:22 | PROVIDERS: ATTEND Internal Medicine | DX: Z20.822 Contact with and (suspected) exposure to COVID-19 (principal) ==

== ENCOUNTER → 2020-06-21 | Outpatient (REF) | payer MEDICARE | LOC: SKLAB3 07:00 | PROVIDERS: ATTEND Internal Medicine | DX: Z20.822 Contact with and (suspected) exposure to COVID-19 (principal) ==

== ENCOUNTER → 2020-07-07 | Outpatient (REF) | payer MEDICARE | LOC: SKLAB3 09:46 | PROVIDERS: ATTEND Internal Medicine | DX: Z20.822 Contact with and (suspected) exposure to COVID-19 (principal) ==

== ENCOUNTER → 2020-07-25 | Outpatient (REF) | payer MEDICARE ==
[2020-07-25 09:35] LABS: HEMATOCRIT 34.9 % (36.0-47.0); HEMOGLOBIN 11.2 g/dl (12.0-15.5); MEAN CORPUSCULAR HEMOGLOBIN 30.9 pg (27.0-33.0); MEAN CORPUSCULAR HGB CONC 32.1 g/dl (32.0-36.5); MEAN CORPUSCULAR VOLUME 96.4 fl (80.0-96.0); PLATELET COUNT, AUTOMATED 271 10^3/uL (150-450); RED BLOOD COUNT 3.62 10^6/uL (4.00-5.40); WHITE BLOOD COUNT 8.4 10^3/uL (4.0-10.0)
[2020-07-25 09:51] LABS: BLOOD UREA NITROGEN 12 MG/DL (7-18); CALCIUM LEVEL 8.4 MG/DL (8.8-10.2); CARBON DIOXIDE LEVEL 26 MEQ/L (21-32); CHLORIDE LEVEL 107 MEQ/L (98-107); CREATININE FOR GFR 0.52 MG/DL (0.55-1.30); GLOMERULAR FILTRATION RATE > 60.0 (>32); GLUCOSE, FASTING 81 MG/DL (70-100); POTASSIUM SERUM 3.6 MEQ/L (3.5-5.1); SODIUM LEVEL 140 MEQ/L (136-145)
== END ==
LOC: SKLAB3 11:41
DX: D64.9 Anemia, unspecified (principal); I10 Essential (primary) hypertension

== ENCOUNTER → 2020-08-22 | Outpatient (REF) | payer MEDICARE ==
[2020-08-22 09:16] LABS: BASO # 0.1 10^3/uL (0.0-0.2); BASO % 1.2 % (0.0-1.0); EOS # 0.3 10^3/uL (0.0-0.5); EOS % 3.4 % (0.0-3.0); HEMATOCRIT 38.4 % (36.0-47.0); HEMOGLOBIN 12.3 g/dl (12.0-15.5); LYMPH # 3.3 10^3/uL (1.5-5.0); LYMPH % 38.7 % (24.0-44.0); MEAN CORPUSCULAR HEMOGLOBIN 30.9 pg (27.0-33.0); MEAN CORPUSCULAR VOLUME 96.5 fl (80.0-96.0); MONO # 0.3 10^3/uL (0.0-0.8); MONO % 3.8 % (2.0-8.0); NEUTROPHILS # 4.5 10^3/uL (1.5-8.5); NEUTROPHILS % 52.7 % (36.0-66.0); PLATELET COUNT, AUTOMATED 270 10^3/uL (150-450); RED BLOOD COUNT 3.98 10^6/uL (4.00-5.40); WHITE BLOOD COUNT 8.6 10^3/uL (4.0-10.0)
== END ==
LOC: SKLAB3 07:00
DX: D64.9 Anemia, unspecified (principal)

== ENCOUNTER → 2020-09-19 | Outpatient (REF) | payer MEDICARE, MEDICAID ==
[2020-09-19 08:34] LABS: ALBUMIN 3.6 GM/DL (3.2-5.2); ALT/SGPT 19 U/L (12-78); BILIRUBIN,TOTAL 0.4 MG/DL (0.2-1.0); BLOOD UREA NITROGEN 9 MG/DL (7-18); CALCIUM LEVEL 8.8 MG/DL (8.8-10.2); CARBON DIOXIDE LEVEL 25 MEQ/L (21-32); CHLORIDE LEVEL 106 MEQ/L (98-107); CREATININE FOR GFR 0.67 MG/DL (0.55-1.30); GLOMERULAR FILTRATION RATE > 60.0 (>32); GLUCOSE, FASTING 107 MG/DL (70-100); POTASSIUM SERUM 3.5 MEQ/L (3.5-5.1); SODIUM LEVEL 139 MEQ/L (136-145); TOTAL PROTEIN 6.7 GM/DL (6.4-8.2)
== END ==
LOC: SKLAB3 07:00
DX: I48.91 Unspecified atrial fibrillation (principal); I10 Essential (primary) hypertension

== ENCOUNTER → 2020-10-03 | Outpatient (REF) | payer MEDICARE, MEDICAID ==
[2020-10-03 11:45] LABS: AMORPHOUS SEDIMENT MODERATE (NEGATIVE); APPEARANCE, URINE CLOUDY (CLEAR); BACTERIA, URINE AUTO 2+ (NEGATIVE); BILIRUBIN, URINE AUTO NEGATIVE (NEGATIVE); BLOOD, URINE BLOOD 1+ (NEGATIVE); CALCIUM OXALATE CRYSTALS SMALL; COLOR, URINE AMBER (YELLOW); GLUCOSE, URINE (UA) AUTO NEGATIVE (NEGATIVE); KETONE, URINE AUTO TRACE mg/dL (NEGATIVE); LEUKOCYTE ESTERASE, URINE AUTO 3+ (NEGATIVE); NITRITE, URINE AUTO POSITIVE (NEGATIVE); PROTEIN, URINE AUTO 1+ mg/dL (NEGATIVE); RBC, URINE AUTO 15 /HPF (0-3); SQUAMOUS EPITHELIAL CELL UR AU 1 /HPF (0-6); UROBILINOGEN, URINE AUTO 0.2 mg/dL (0.0-2.0); WBC, URINE AUTO TNTC /HPF (0-3)
== END ==
LOC: SKLAB3 10:18
DX: R30.0 Dysuria (principal)

== ENCOUNTER → 2020-10-04 | Outpatient (REF) | payer MEDICARE, MEDICAID ==
--- NOTE | 2020-10-04 15:19 | REP ---
INDICATION: ABD PAIN COMPARISON: None. TECHNIQUE: Supine view of the abdomen and pelvis. FINDINGS: Air-filled loops of small and large bowel are nonspecific but may represent underlying ileus. No organomegaly. Significant atherosclerotic changes to the aorta and vasculature noted. Skeletal structures demonstrate age-related osteopenia and degenerative changes. IMPRESSION: Air-filled small and large bowel suggesting ileus pattern. <Electronically signed by Austen Ren > 10/04/20 [id number]
[2020-10-04 15:23] LABS: HEMATOCRIT 37.9 % (36.0-47.0); HEMOGLOBIN 12.9 g/dl (12.0-15.5); MEAN CORPUSCULAR HEMOGLOBIN 31.5 pg (27.0-33.0); MEAN CORPUSCULAR VOLUME 92.7 fl (80.0-96.0); PLATELET COUNT, AUTOMATED 252 10^3/uL (150-450); RED BLOOD COUNT 4.09 10^6/uL (4.00-5.40); WHITE BLOOD COUNT 12.3 10^3/uL (4.0-10.0)
[2020-10-04 15:48] LABS: BLOOD UREA NITROGEN 8 MG/DL (7-18); CALCIUM LEVEL 9.3 MG/DL (8.8-10.2); CARBON DIOXIDE LEVEL 21 MEQ/L (21-32); CHLORIDE LEVEL 101 MEQ/L (98-107); CREATININE FOR GFR 0.58 MG/DL (0.55-1.30); GLOMERULAR FILTRATION RATE > 60.0 (>32); GLUCOSE, FASTING 97 MG/DL (70-100); POTASSIUM SERUM 3.2 MEQ/L (3.5-5.1); SODIUM LEVEL 134 MEQ/L (136-145)
== END ==
LOC: SKLAB3 14:02
DX: R10.9 Unspecified abdominal pain (principal); I70.0 Atherosclerosis of aorta; M85.88 Other specified disorders of bone density and structure, other site

== ENCOUNTER → 2020-10-05 | Outpatient (REF) | payer MEDICARE, MEDICAID ==
[2020-10-05 09:51] LABS: HEMATOCRIT 34.6 % (36.0-47.0); HEMOGLOBIN 11.4 g/dl (12.0-15.5); MEAN CORPUSCULAR HEMOGLOBIN 31.1 pg (27.0-33.0); MEAN CORPUSCULAR HGB CONC 32.9 g/dl (32.0-36.5); MEAN CORPUSCULAR VOLUME 94.5 fl (80.0-96.0); PLATELET COUNT, AUTOMATED 213 10^3/uL (150-450); RED BLOOD COUNT 3.66 10^6/uL (4.00-5.40); WHITE BLOOD COUNT 7.5 10^3/uL (4.0-10.0)
[2020-10-05 10:37] LABS: BLOOD UREA NITROGEN 9 MG/DL (7-18); CALCIUM LEVEL 8.5 MG/DL (8.8-10.2); CARBON DIOXIDE LEVEL 18 MEQ/L (21-32); CHLORIDE LEVEL 109 MEQ/L (98-107); CREATININE FOR GFR 0.64 MG/DL (0.55-1.30); GLOMERULAR FILTRATION RATE > 60.0 (>32); GLUCOSE, FASTING 61 MG/DL (70-100); POTASSIUM SERUM 3.9 MEQ/L (3.5-5.1); SODIUM LEVEL 137 MEQ/L (136-145)
== END ==
LOC: SKLAB3 07:00
DX: K56.7 Ileus, unspecified (principal)

== ENCOUNTER → 2020-10-06 | Outpatient (REF) | payer MEDICARE, MEDICAID ==
--- NOTE | 2020-10-06 09:29 | REP ---
INDICATION: F/U ILEUS COMPARISON: 10/04/2020 TECHNIQUE: Supine view of the abdomen and pelvis. FINDINGS: Bowel gas pattern is unchanged with moderately prominent air-filled small and large bowel throughout the abdomen and pelvis again suggesting ileus. No evidence for bowel obstruction/perforation, or fecal stasis. No organomegaly. Extensive atherosclerotic changes to the aorta and vasculature again noted without obvious aneurysm. Skeletal structures demonstrate stable osteopenia and degenerative changes. IMPRESSION: No significant change from prior examination. Bowel gas pattern again suggesting ileus. <Electronically signed by Austen Ren > 10/06/20 0216
== END ==
LOC: SKLAB3 06:53
DX: K56.7 Ileus, unspecified (principal); I70.0 Atherosclerosis of aorta; M85.80 Other specified disorders of bone density and structure, unspecified site

== ENCOUNTER → 2020-10-07 | Outpatient (REF) | payer MEDICARE, MEDICAID ==
[2020-10-07 07:54] LABS: HEMATOCRIT 41.8 % (36.0-47.0); HEMOGLOBIN 13.1 g/dl (12.0-15.5); MEAN CORPUSCULAR HEMOGLOBIN 31.4 pg (27.0-33.0); MEAN CORPUSCULAR HGB CONC 31.3 g/dl (32.0-36.5); MEAN CORPUSCULAR VOLUME 100.2 fl (80.0-96.0); PLATELET COUNT, AUTOMATED 261 10^3/uL (150-450); RED BLOOD COUNT 4.17 10^6/uL (4.00-5.40); WHITE BLOOD COUNT 7.8 10^3/uL (4.0-10.0)
[2020-10-07 08:28] LABS: BLOOD UREA NITROGEN 6 MG/DL (7-18); CARBON DIOXIDE LEVEL 17 MEQ/L (21-32); CHLORIDE LEVEL 111 MEQ/L (98-107); CREATININE FOR GFR 0.61 MG/DL (0.55-1.30); GLOMERULAR FILTRATION RATE > 60.0 (>32); GLUCOSE, FASTING 102 MG/DL (70-100); POTASSIUM SERUM 3.8 MEQ/L (3.5-5.1); SODIUM LEVEL 140 MEQ/L (136-145)
== END ==
LOC: EEVIPCON → SKLAB3 07:00
DX: K56.7 Ileus, unspecified (principal)

== ENCOUNTER → 2021-01-23 | Outpatient (REF) | payer MEDICARE, MEDICAID ==
[~2021-01-23] MED LIST changes: -KLOR10TA76 PO; +POTA-136 PO
[2021-01-23 10:27] LABS: BASO # 0.1 10^3/uL (0.0-0.2); BASO % 1.2 % (0.0-1.0); EOS # 0.2 10^3/uL (0.0-0.5); EOS % 2.2 % (0.0-3.0); HEMATOCRIT 36.6 % (36.0-47.0); HEMOGLOBIN 11.8 g/dl (12.0-15.5); LYMPH # 1.5 10^3/uL (1.5-5.0); LYMPH % 22.1 % (24.0-44.0); MEAN CORPUSCULAR HEMOGLOBIN 31.3 pg (27.0-33.0); MEAN CORPUSCULAR HGB CONC 32.2 g/dl (32.0-36.5); MEAN CORPUSCULAR VOLUME 97.1 fl (80.0-96.0); MONO # 0.4 10^3/uL (0.0-0.8); MONO % 6.5 % (2.0-8.0); NEUTROPHILS # 4.6 10^3/uL (1.5-8.5); NEUTROPHILS % 67.7 % (36.0-66.0); PLATELET COUNT, AUTOMATED 245 10^3/uL (150-450); RED BLOOD COUNT 3.77 10^6/uL (4.00-5.40); WHITE BLOOD COUNT 6.8 10^3/uL (4.0-10.0)
[2021-01-23 11:09] LABS: ALBUMIN 3.5 GM/DL (3.2-5.2); ALT/SGPT 16 U/L (12-78); BILIRUBIN,TOTAL 0.5 MG/DL (0.2-1.0); BLOOD UREA NITROGEN 9 MG/DL (7-18); CALCIUM LEVEL 8.7 MG/DL (8.8-10.2); CARBON DIOXIDE LEVEL 29 MEQ/L (21-32); CHLORIDE LEVEL 105 MEQ/L (98-107); CREATININE FOR GFR 0.72 MG/DL (0.55-1.30); GLOMERULAR FILTRATION RATE > 60.0 (>32); GLUCOSE, FASTING 89 MG/DL (70-100); POTASSIUM SERUM 3.3 MEQ/L (3.5-5.1); SODIUM LEVEL 137 MEQ/L (136-145); TOTAL PROTEIN 7.7 GM/DL (6.4-8.2)
== END ==
LOC: SKLAB3 06:55
PROVIDERS: ATTEND Neuromusculoskeletal Medicine & OMM
DX: D64.9 Anemia, unspecified (principal); I10 Essential (primary) hypertension; I48.91 Unspecified atrial fibrillation

== ENCOUNTER → 2021-01-25 | Outpatient (REF) | payer MEDICARE, MEDICAID | LOC: SKLAB3 08:47 | PROVIDERS: ATTEND Neuromusculoskeletal Medicine & OMM | DX: Z20.822 Contact with and (suspected) exposure to COVID-19 (principal) ==

== ENCOUNTER → 2021-01-26 | Outpatient (REF) | payer MEDICARE, MEDICAID ==
[2021-01-26 13:53] LABS: HEMATOCRIT 35.7 % (36.0-47.0); HEMOGLOBIN 11.9 g/dl (12.0-15.5); MEAN CORPUSCULAR HEMOGLOBIN 31.5 pg (27.0-33.0); MEAN CORPUSCULAR HGB CONC 33.3 g/dl (32.0-36.5); MEAN CORPUSCULAR VOLUME 94.4 fl (80.0-96.0); PLATELET COUNT, AUTOMATED 231 10^3/uL (150-450); RED BLOOD COUNT 3.78 10^6/uL (4.00-5.40); WHITE BLOOD COUNT 5.7 10^3/uL (4.0-10.0)
[2021-01-26 14:27] LABS: ALBUMIN 3.5 GM/DL (3.2-5.2); ALT/SGPT 15 U/L (12-78); BILIRUBIN,TOTAL 0.5 MG/DL (0.2-1.0); BLOOD UREA NITROGEN 12 MG/DL (7-18); C REACTIVE PROTEIN QUANTITATIV 3.96 MG/DL (0.00-0.30); CALCIUM LEVEL 8.8 MG/DL (8.8-10.2); CARBON DIOXIDE LEVEL 24 MEQ/L (21-32); CHLORIDE LEVEL 98 MEQ/L (98-107); CREATININE FOR GFR 0.76 MG/DL (0.55-1.30); GLOMERULAR FILTRATION RATE > 60.0 (>32); GLUCOSE, FASTING 106 MG/DL (70-100); SODIUM LEVEL 133 MEQ/L (136-145); TOTAL PROTEIN 7.3 GM/DL (6.4-8.2)
[2021-01-26 14:29] LABS: PROLACTIN 9.1 NG/ML
== END ==
LOC: SKLAB2 12:36
PROVIDERS: ATTEND Neuromusculoskeletal Medicine & OMM
DX: U07.1 COVID-19 (principal); Z79.899 Other long term (current) drug therapy

== ENCOUNTER → 2021-01-29 | Outpatient (REF) | payer MEDICARE, MEDICAID | LOC: SKLAB2 07:00 | PROVIDERS: ATTEND Neuromusculoskeletal Medicine & OMM | DX: U07.1 COVID-19 (principal); Z53.9 Procedure and treatment not carried out, unspecified reason ==

== ENCOUNTER → 2021-01-31 | Outpatient (REF) | payer MEDICARE, MEDICAID ==
[2021-01-31 11:01] LABS: HEMATOCRIT 33.5 % (36.0-47.0); HEMOGLOBIN 11.2 g/dl (12.0-15.5); MEAN CORPUSCULAR HEMOGLOBIN 31.1 pg (27.0-33.0); MEAN CORPUSCULAR HGB CONC 33.4 g/dl (32.0-36.5); MEAN CORPUSCULAR VOLUME 93.1 fl (80.0-96.0); PLATELET COUNT, AUTOMATED 256 10^3/uL (150-450); WHITE BLOOD COUNT 5.7 10^3/uL (4.0-10.0)
[2021-01-31 11:35] LABS: ALBUMIN 3.2 GM/DL (3.2-5.2); ALT/SGPT 15 U/L (12-78); BILIRUBIN,TOTAL 0.4 MG/DL (0.2-1.0); BLOOD UREA NITROGEN 9 MG/DL (7-18); C REACTIVE PROTEIN QUANTITATIV 3.12 MG/DL (0.00-0.30); CARBON DIOXIDE LEVEL 30 MEQ/L (21-32); CHLORIDE LEVEL 100 MEQ/L (98-107); CREATININE FOR GFR 0.64 MG/DL (0.55-1.30); GLOMERULAR FILTRATION RATE > 60.0 (>32); GLUCOSE, FASTING 96 MG/DL (70-100); POTASSIUM SERUM 2.8 MEQ/L (3.5-5.1); SODIUM LEVEL 134 MEQ/L (136-145); TOTAL PROTEIN 6.5 GM/DL (6.4-8.2)
== END ==
LOC: SKLAB2 07:00
PROVIDERS: ATTEND Neuromusculoskeletal Medicine & OMM
DX: U07.1 COVID-19 (principal); Z79.899 Other long term (current) drug therapy

== ENCOUNTER → 2021-02-02 | Outpatient (REF) | payer MEDICARE, MEDICAID ==
[2021-02-02 07:03] LABS: HEMATOCRIT 33.2 % (36.0-47.0); HEMOGLOBIN 11.1 g/dl (12.0-15.5); MEAN CORPUSCULAR HEMOGLOBIN 30.7 pg (27.0-33.0); MEAN CORPUSCULAR HGB CONC 33.4 g/dl (32.0-36.5); MEAN CORPUSCULAR VOLUME 91.7 fl (80.0-96.0); PLATELET COUNT, AUTOMATED 290 10^3/uL (150-450); RED BLOOD COUNT 3.62 10^6/uL (4.00-5.40); WHITE BLOOD COUNT 7.4 10^3/uL (4.0-10.0)
[2021-02-02 07:35] LABS: ALBUMIN 3.3 GM/DL (3.2-5.2); ALT/SGPT 16 U/L (12-78); BILIRUBIN,TOTAL 0.6 MG/DL (0.2-1.0); BLOOD UREA NITROGEN 8 MG/DL (7-18); CALCIUM LEVEL 8.9 MG/DL (8.8-10.2); CARBON DIOXIDE LEVEL 28 MEQ/L (21-32); CHLORIDE LEVEL 100 MEQ/L (98-107); CREATININE FOR GFR 0.63 MG/DL (0.55-1.30); GLOMERULAR FILTRATION RATE > 60.0 (>32); GLUCOSE, FASTING 92 MG/DL (70-100); POTASSIUM SERUM 3.4 MEQ/L (3.5-5.1); SODIUM LEVEL 132 MEQ/L (136-145); TOTAL PROTEIN 6.5 GM/DL (6.4-8.2)
== END ==
LOC: SKLAB2 08:40
PROVIDERS: ATTEND Neuromusculoskeletal Medicine & OMM
DX: U07.1 COVID-19 (principal); Z79.899 Other long term (current) drug therapy

== ENCOUNTER → 2021-02-06 | Outpatient (REF) | payer MEDICARE, MEDICAID ==
[2021-02-06 11:06] LABS: BLOOD UREA NITROGEN 10 MG/DL (7-18); CALCIUM LEVEL 8.8 MG/DL (8.8-10.2); CARBON DIOXIDE LEVEL 25 MEQ/L (21-32); CHLORIDE LEVEL 101 MEQ/L (98-107); CREATININE FOR GFR 0.84 MG/DL (0.55-1.30); GLOMERULAR FILTRATION RATE > 60.0 (>32); GLUCOSE, FASTING 129 MG/DL (70-100); SODIUM LEVEL 133 MEQ/L (136-145)
== END ==
LOC: SKLAB3 08:00
PROVIDERS: ATTEND Neuromusculoskeletal Medicine & OMM
DX: I48.91 Unspecified atrial fibrillation (principal); I10 Essential (primary) hypertension

== ENCOUNTER → 2021-02-08 | Outpatient (REF) | payer MEDICARE, MEDICAID | LOC: SKLAB3 05:53 | PROVIDERS: ATTEND Internal Medicine | DX: Z20.822 Contact with and (suspected) exposure to COVID-19 (principal); Z53.9 Procedure and treatment not carried out, unspecified reason ==

== ENCOUNTER → 2021-02-13 | Outpatient (REF) | payer MEDICARE, MEDICAID ==
[2021-02-13 12:55] LABS: BLOOD UREA NITROGEN 10 MG/DL (7-18); CALCIUM LEVEL 8.4 MG/DL (8.8-10.2); CARBON DIOXIDE LEVEL 26 MEQ/L (21-32); CHLORIDE LEVEL 102 MEQ/L (98-107); CREATININE FOR GFR 0.67 MG/DL (0.55-1.30); GLOMERULAR FILTRATION RATE > 60.0 (>32); GLUCOSE, FASTING 121 MG/DL (70-100); POTASSIUM SERUM 3.7 MEQ/L (3.5-5.1); SODIUM LEVEL 132 MEQ/L (136-145)
== END ==
LOC: SKLAB3 07:00
PROVIDERS: ATTEND Neuromusculoskeletal Medicine & OMM
DX: I10 Essential (primary) hypertension (principal); I48.91 Unspecified atrial fibrillation

== ENCOUNTER → 2021-04-24 | Outpatient (REF) | payer MEDICARE, MEDICAID ==
[2021-04-24 08:33] LABS: BASO # 0.1 10^3/uL (0.0-0.2); BASO % 1.2 % (0.0-1.0); EOS # 0.2 10^3/uL (0.0-0.5); EOS % 2.3 % (0.0-3.0); HEMATOCRIT 39.1 % (36.0-47.0); HEMOGLOBIN 12.8 g/dl (12.0-15.5); LYMPH # 3.3 10^3/uL (1.5-5.0); LYMPH % 42.2 % (24.0-44.0); MEAN CORPUSCULAR HEMOGLOBIN 32.2 pg (27.0-33.0); MEAN CORPUSCULAR HGB CONC 32.7 g/dl (32.0-36.5); MEAN CORPUSCULAR VOLUME 98.2 fl (80.0-96.0); MONO # 0.4 10^3/uL (0.0-0.8); MONO % 4.5 % (2.0-8.0); NEUTROPHILS # 3.8 10^3/uL (1.5-8.5); NEUTROPHILS % 49.4 % (36.0-66.0); PLATELET COUNT, AUTOMATED 296 10^3/uL (150-450); RED BLOOD COUNT 3.98 10^6/uL (4.00-5.40); WHITE BLOOD COUNT 7.8 10^3/uL (4.0-10.0)
== END ==
LOC: SKLAB3 14:03
PROVIDERS: ATTEND Neuromusculoskeletal Medicine & OMM
DX: D64.9 Anemia, unspecified (principal)

== ENCOUNTER → 2021-05-22 | Outpatient (REF) | payer MEDICARE, MEDICAID ==
[2021-05-22 14:53] LABS: ALBUMIN 3.6 GM/DL (3.2-5.2); ALT/SGPT 14 U/L (12-78); BILIRUBIN,TOTAL 0.4 MG/DL (0.2-1.0); BLOOD UREA NITROGEN 15 MG/DL (7-18); CALCIUM LEVEL 9.3 MG/DL (8.8-10.2); CARBON DIOXIDE LEVEL 22 MEQ/L (21-32); CHLORIDE LEVEL 102 MEQ/L (98-107); CREATININE FOR GFR 0.79 MG/DL (0.55-1.30); GLOMERULAR FILTRATION RATE > 60.0 (>32); GLUCOSE, FASTING 73 MG/DL (70-100); POTASSIUM SERUM 4.1 MEQ/L (3.5-5.1); SODIUM LEVEL 134 MEQ/L (136-145); TOTAL PROTEIN 6.9 GM/DL (6.4-8.2)
== END ==
LOC: SKLAB3 11:22
PROVIDERS: ATTEND Neuromusculoskeletal Medicine & OMM
DX: I10 Essential (primary) hypertension (principal); I48.91 Unspecified atrial fibrillation

== ENCOUNTER → 2021-07-24 | Outpatient (REF) | payer MEDICARE, MEDICAID ==
[2021-07-24 11:15] LABS: BASO # 0.1 10^3/uL (0.0-0.2); BASO % 0.9 % (0.0-1.0); EOS # 0.2 10^3/uL (0.0-0.5); HEMATOCRIT 34.3 % (36.0-47.0); HEMOGLOBIN 11.4 g/dl (12.0-15.5); LYMPH # 2.9 10^3/uL (1.5-5.0); LYMPH % 34.6 % (24.0-44.0); MEAN CORPUSCULAR HEMOGLOBIN 32.7 pg (27.0-33.0); MEAN CORPUSCULAR HGB CONC 33.2 g/dl (32.0-36.5); MEAN CORPUSCULAR VOLUME 98.3 fl (80.0-96.0); MONO # 0.5 10^3/uL (0.0-0.8); MONO % 5.8 % (2.0-8.0); NEUTROPHILS # 4.8 10^3/uL (1.5-8.5); NEUTROPHILS % 56.5 % (36.0-66.0); PLATELET COUNT, AUTOMATED 273 10^3/uL (150-450); RED BLOOD COUNT 3.49 10^6/uL (4.00-5.40); WHITE BLOOD COUNT 8.4 10^3/uL (4.0-10.0)
== END ==
LOC: SKLAB3 11:42
PROVIDERS: ATTEND Neuromusculoskeletal Medicine & OMM
DX: D64.9 Anemia, unspecified (principal)

== ENCOUNTER → 2021-08-21 | Outpatient (REF) | payer MEDICARE, MEDICAID ==
[2021-08-21 08:47] LABS: BLOOD UREA NITROGEN 14 MG/DL (7-18); CALCIUM LEVEL 8.9 MG/DL (8.8-10.2); CARBON DIOXIDE LEVEL 23 MEQ/L (21-32); CHLORIDE LEVEL 106 MEQ/L (98-107); CREATININE FOR GFR 0.66 MG/DL (0.55-1.30); GLOMERULAR FILTRATION RATE > 60.0 (>32); GLUCOSE, FASTING 82 MG/DL (70-100); SODIUM LEVEL 138 MEQ/L (136-145)
== END ==
LOC: SKLAB3 11:26
PROVIDERS: ATTEND Neuromusculoskeletal Medicine & OMM
DX: I48.91 Unspecified atrial fibrillation (principal); I10 Essential (primary) hypertension

== ENCOUNTER → 2021-10-23 | Outpatient (REF) | payer MEDICARE, MEDICAID ==
[2021-10-23 08:50] LABS: BASO # 0.1 10^3/uL (0.0-0.2); BASO % 1.4 % (0.0-1.0); EOS # 0.2 10^3/uL (0.0-0.5); EOS % 2.6 % (0.0-3.0); HEMATOCRIT 38.3 % (36.0-47.0); HEMOGLOBIN 12.9 g/dl (12.0-15.5); LYMPH % 37.5 % (24.0-44.0); MEAN CORPUSCULAR HEMOGLOBIN 33.6 pg (27.0-33.0); MEAN CORPUSCULAR HGB CONC 33.7 g/dl (32.0-36.5); MEAN CORPUSCULAR VOLUME 99.7 fl (80.0-96.0); MONO # 0.3 10^3/uL (0.0-0.8); MONO % 3.1 % (2.0-8.0); NEUTROPHILS # 4.4 10^3/uL (1.5-8.5); NEUTROPHILS % 54.9 % (36.0-66.0); PLATELET COUNT, AUTOMATED 299 10^3/uL (150-450); RED BLOOD COUNT 3.84 10^6/uL (4.00-5.40)
== END ==
LOC: SKLAB3 09:51
PROVIDERS: ATTEND Nurse Practitioner
DX: D64.9 Anemia, unspecified (principal)

== ENCOUNTER → 2021-11-02 | Outpatient (REF) | payer MEDICARE, MEDICAID | LOC: SKLAB3 12:17 | PROVIDERS: ATTEND Neuromusculoskeletal Medicine & OMM | DX: Z20.822 Contact with and (suspected) exposure to COVID-19 (principal) ==

== ENCOUNTER → 2021-11-20 | Outpatient (REF) | payer MEDICARE, MEDICAID ==
[2021-11-20 09:57] LABS: BASO # 0.1 10^3/uL (0.0-0.2); BASO % 1.1 % (0.0-1.0); EOS # 0.1 10^3/uL (0.0-0.5); EOS % 1.8 % (0.0-3.0); HEMATOCRIT 35.1 % (36.0-47.0); HEMOGLOBIN 11.5 g/dl (12.0-15.5); LYMPH # 1.8 10^3/uL (1.5-5.0); LYMPH % 23.7 % (24.0-44.0); MEAN CORPUSCULAR HEMOGLOBIN 33.2 pg (27.0-33.0); MEAN CORPUSCULAR HGB CONC 32.8 g/dl (32.0-36.5); MEAN CORPUSCULAR VOLUME 101.4 fl (80.0-96.0); MONO # 0.3 10^3/uL (0.0-0.8); MONO % 3.8 % (2.0-8.0); NEUTROPHILS # 5.1 10^3/uL (1.5-8.5); NEUTROPHILS % 69.1 % (36.0-66.0); PLATELET COUNT, AUTOMATED 258 10^3/uL (150-450); RED BLOOD COUNT 3.46 10^6/uL (4.00-5.40); WHITE BLOOD COUNT 7.4 10^3/uL (4.0-10.0)
== END ==
LOC: SKLAB3 09:45
PROVIDERS: ATTEND Nurse Practitioner Family
DX: I48.91 Unspecified atrial fibrillation (principal); I10 Essential (primary) hypertension

== ENCOUNTER → 2021-12-25 | Outpatient (REF) | payer MEDICARE, MEDICAID ==
[2021-12-25 12:07] LABS: BLOOD UREA NITROGEN 18 MG/DL (7-18); CALCIUM LEVEL 8.5 MG/DL (8.8-10.2); CARBON DIOXIDE LEVEL 21 MEQ/L (21-32); CHLORIDE LEVEL 109 MEQ/L (98-107); CREATININE FOR GFR 0.75 MG/DL (0.55-1.30); GLOMERULAR FILTRATION RATE > 60.0 (>32); GLUCOSE, FASTING 112 MG/DL (70-100); POTASSIUM SERUM 3.7 MEQ/L (3.5-5.1); SODIUM LEVEL 139 MEQ/L (136-145)
== END ==
LOC: SKLAB3 10:53
PROVIDERS: ATTEND Nurse Practitioner Family
DX: I10 Essential (primary) hypertension (principal); I48.91 Unspecified atrial fibrillation

== ENCOUNTER → 2022-02-19 | Outpatient (REF) | payer MEDICARE, MEDICAID ==
[2022-02-19 10:10] LABS: BASO # 0.1 10^3/uL (0.0-0.2); EOS # 0.1 10^3/uL (0.0-0.5); EOS % 1.8 % (0.0-3.0); HEMATOCRIT 41.1 % (36.0-47.0); HEMOGLOBIN 12.7 g/dl (12.0-15.5); LYMPH # 2.5 10^3/uL (1.5-5.0); LYMPH % 34.2 % (24.0-44.0); MEAN CORPUSCULAR HEMOGLOBIN 32.9 pg (27.0-33.0); MEAN CORPUSCULAR HGB CONC 30.9 g/dl (32.0-36.5); MEAN CORPUSCULAR VOLUME 106.5 fl (80.0-96.0); MONO # 0.3 10^3/uL (0.0-0.8); NEUTROPHILS # 4.3 10^3/uL (1.5-8.5); NEUTROPHILS % 58.6 % (36.0-66.0); PLATELET COUNT, AUTOMATED 226 10^3/uL (150-450); RED BLOOD COUNT 3.86 10^6/uL (4.00-5.40); WHITE BLOOD COUNT 7.3 10^3/uL (4.0-10.0)
== END ==
LOC: SKLAB3 09:20
PROVIDERS: ATTEND Nurse Practitioner Family
DX: D64.9 Anemia, unspecified (principal)

== ENCOUNTER → 2022-02-25 | Outpatient (REF) | payer MEDICARE, MEDICAID ==
[2022-02-25 15:12] LABS: APPEARANCE, URINE MANUAL TURBID (CLEAR)
[2022-02-25 15:13] LABS: COLOR, URINE MANUAL RED (YELLOW)
[2022-02-25 15:14] LABS: BILIRUBIN, URINE MANUAL NEGATIVE (NEGATIVE); BLOOD URINE MANUAL POSITIVE (NEGATIVE); GLUCOSE, URINE (UA) MANUAL NEGATIVE (NEGATIVE); KETONE, URINE MANUAL NEGATIVE (NEGATIVE); LEUKOCYTE ESTERASE, URINE MAN POSITIVE (NEGATIVE); NITRITE, URINE MANUAL POSITIVE (NEGATIVE); PROTEIN, URINE MANUAL 3+ mg/dL (NEGATIVE); UROBILINOGEN, URINE MANUAL NORMAL (NORMAL)
[2022-02-25 15:36] LABS: BACTERIA, URINE LARGE AMOUNT; RBC, URINE TNTC /hpf (0-3); SQUAMOUS EPITHELIAL CELL URINE SMALL AMOUNT /hpf (SMALL AMT); WBC, URINE TNTC /hpf (0-3)
== END ==
LOC: SKLAB3 12:25
PROVIDERS: ATTEND Nurse Practitioner Family
DX: R31.9 Hematuria, unspecified (principal)

== ENCOUNTER → 2022-03-11 | Outpatient (REF) | payer MEDICARE, MEDICAID ==
[2022-03-11 15:55] LABS: APPEARANCE, URINE MANUAL TURBID (CLEAR); COLOR, URINE MANUAL BROWN (YELLOW)
[2022-03-11 15:56] LABS: BILIRUBIN, URINE MANUAL NEGATIVE (NEGATIVE); BLOOD URINE MANUAL POSITIVE (NEGATIVE); GLUCOSE, URINE (UA) MANUAL NEGATIVE (NEGATIVE); KETONE, URINE MANUAL 1+ mg/dL (NEGATIVE); LEUKOCYTE ESTERASE, URINE MAN POSITIVE (NEGATIVE); NITRITE, URINE MANUAL TRACE (NEGATIVE); PROTEIN, URINE MANUAL 3+ mg/dL (NEGATIVE); UROBILINOGEN, URINE MANUAL NORMAL (NORMAL)
[2022-03-11 16:11] LABS: BACTERIA, URINE MOD AMOUNT; RBC, URINE TNTC /hpf (0-3); SQUAMOUS EPITHELIAL CELL URINE NONE SEEN /hpf (SMALL AMT); WBC, URINE TNTC /hpf (0-3)
[2022-03-11 16:12] LABS: CALCIUM OXALATE CRYSTALS,URINE SMALL AMOUNT /hpf; HYALINE CAST, URINE 0-1 /lpf (0-1)
== END ==
LOC: SKLAB3 15:19
PROVIDERS: ATTEND Nurse Practitioner
DX: R31.9 Hematuria, unspecified (principal)

== ENCOUNTER → 2022-03-12 | Outpatient (REF) | payer MEDICARE, MEDICAID ==
[2022-03-12 08:22] LABS: BASO # 0.1 10^3/uL (0.0-0.2); BASO % 0.6 % (0.0-1.0); EOS # 0.1 10^3/uL (0.0-0.5); EOS % 0.8 % (0.0-3.0); HEMATOCRIT 37.4 % (36.0-47.0); HEMOGLOBIN 12.1 g/dl (12.0-15.5); LYMPH # 2.7 10^3/uL (1.5-5.0); LYMPH % 28.6 % (24.0-44.0); MEAN CORPUSCULAR HEMOGLOBIN 33.4 pg (27.0-33.0); MEAN CORPUSCULAR HGB CONC 32.4 g/dl (32.0-36.5); MEAN CORPUSCULAR VOLUME 103.3 fl (80.0-96.0); MONO # 0.4 10^3/uL (0.0-0.8); MONO % 3.7 % (2.0-8.0); NEUTROPHILS # 6.3 10^3/uL (1.5-8.5); NEUTROPHILS % 65.7 % (36.0-66.0); PLATELET COUNT, AUTOMATED 281 10^3/uL (150-450); RED BLOOD COUNT 3.62 10^6/uL (4.00-5.40); WHITE BLOOD COUNT 9.6 10^3/uL (4.0-10.0)
[2022-03-12 08:43] LABS: BLOOD UREA NITROGEN 25 MG/DL (9-23); CALCIUM LEVEL 8.2 MG/DL (8.3-10.6); CARBON DIOXIDE LEVEL 20 MMOL/L (20-31); CHLORIDE LEVEL 109 MMOL/L (98-107); CREATININE FOR GFR 0.74 MG/DL (0.55-1.30); GLOMERULAR FILTRATION RATE > 60.0 (>32); GLUCOSE, FASTING 87 MG/DL (74-106); POTASSIUM SERUM 3.6 MMOL/L (3.5-5.1); SODIUM LEVEL 139 MMOL/L (136-145)
== END ==
LOC: SKLAB3 10:18
PROVIDERS: ATTEND Nurse Practitioner
DX: R31.9 Hematuria, unspecified (principal)

== ENCOUNTER → 2022-03-22 | Outpatient (REF) | payer MEDICARE, MEDICAID | LOC: SKLAB3 11:28 | PROVIDERS: ATTEND Nurse Practitioner | DX: I10 Essential (primary) hypertension (principal); I48.91 Unspecified atrial fibrillation ==

== ENCOUNTER → 2022-03-26 | Outpatient (REF) | payer MEDICARE, MEDICAID ==
[2022-03-26 08:59] LABS: ALBUMIN 2.6 G/DL (3.2-5.2); ALKALINE PHOSPHATASE 44 U/L (46-116); ALT/SGPT 13 U/L (7.0-40); AST/SGOT 20 U/L (<34); BILIRUBIN,TOTAL 0.3 MG/DL (0.3-1.2); BLOOD UREA NITROGEN 18 MG/DL (9-23); CALCIUM LEVEL 8.4 MG/DL (8.3-10.6); CARBON DIOXIDE LEVEL 21 MMOL/L (20-31); CHLORIDE LEVEL 109 MMOL/L (98-107); CREATININE FOR GFR 0.66 MG/DL (0.55-1.30); GLOMERULAR FILTRATION RATE > 60.0 (>32); GLUCOSE, FASTING 78 MG/DL (74-106); SODIUM LEVEL 139 MMOL/L (136-145); TOTAL PROTEIN 5.1 G/DL (5.7-8.2)
== END ==
LOC: SKLAB3 07:00
PROVIDERS: ATTEND Nurse Practitioner
DX: I10 Essential (primary) hypertension (principal); I48.91 Unspecified atrial fibrillation

== ENCOUNTER → 2022-04-19 | Outpatient (REF) | payer MEDICARE, MEDICAID ==
[2022-04-19 10:51] LABS: HEMATOCRIT 40.7 % (36.0-47.0); HEMOGLOBIN 13.2 g/dl (12.0-15.5); MEAN CORPUSCULAR HEMOGLOBIN 33.8 pg (27.0-33.0); MEAN CORPUSCULAR HGB CONC 32.4 g/dl (32.0-36.5); MEAN CORPUSCULAR VOLUME 104.1 fl (80.0-96.0); PLATELET COUNT, AUTOMATED 293 10^3/uL (150-450); RED BLOOD COUNT 3.91 10^6/uL (4.00-5.40); WHITE BLOOD COUNT 9.1 10^3/uL (4.0-10.0)
[2022-04-19 11:13] LABS: BLOOD UREA NITROGEN 16 MG/DL (9-23); CALCIUM LEVEL 9.1 MG/DL (8.3-10.6); CARBON DIOXIDE LEVEL 28 MMOL/L (20-31); CHLORIDE LEVEL 103 MMOL/L (98-107); CREATININE FOR GFR 0.62 MG/DL (0.55-1.30); GLOMERULAR FILTRATION RATE > 60.0 (>32); GLUCOSE, FASTING 124 MG/DL (74-106); POTASSIUM SERUM 3.4 MMOL/L (3.5-5.1); SODIUM LEVEL 141 MMOL/L (136-145)
== END ==
LOC: SKLAB3 10:10
PROVIDERS: ATTEND Nurse Practitioner
DX: M47.816 Spondylosis without myelopathy or radiculopathy, lumbar region (principal); R11.10 Vomiting, unspecified

== ENCOUNTER → 2022-04-25 | Outpatient (REF) | payer MEDICARE, MEDICAID ==
[2022-04-25 12:34] LABS: HEMOGLOBIN 13.3 g/dl (12.0-15.5); MEAN CORPUSCULAR HEMOGLOBIN 33.3 pg (27.0-33.0); MEAN CORPUSCULAR HGB CONC 32.4 g/dl (32.0-36.5); MEAN CORPUSCULAR VOLUME 102.8 fl (80.0-96.0); PLATELET COUNT, AUTOMATED 297 10^3/uL (150-450); RED BLOOD COUNT 3.99 10^6/uL (4.00-5.40); WHITE BLOOD COUNT 8.2 10^3/uL (4.0-10.0)
[2022-04-25 12:57] LABS: ALBUMIN 3.1 G/DL (3.2-5.2); ALKALINE PHOSPHATASE 48 U/L (46-116); ALT/SGPT 9 U/L (7.0-40); AST/SGOT 16 U/L (<34); BILIRUBIN,TOTAL 0.4 MG/DL (0.3-1.2); BLOOD UREA NITROGEN 12 MG/DL (9-23); CALCIUM LEVEL 8.5 MG/DL (8.3-10.6); CARBON DIOXIDE LEVEL 26 MMOL/L (20-31); CHLORIDE LEVEL 101 MMOL/L (98-107); CREATININE FOR GFR 0.71 MG/DL (0.55-1.30); GLOMERULAR FILTRATION RATE > 60.0 (>32); GLUCOSE, FASTING 92 MG/DL (74-106); POTASSIUM SERUM 3.6 MMOL/L (3.5-5.1); SODIUM LEVEL 136 MMOL/L (136-145); TOTAL PROTEIN 5.6 G/DL (5.7-8.2)
[2022-04-25 12:59] LABS: THYROID STIMULATING HORMONE 4.929 uIU/ML (0.55-4.78)
[2022-04-25 17:43] LABS: APPEARANCE, URINE MANUAL HAZY (CLEAR); BILIRUBIN, URINE MANUAL NEGATIVE (NEGATIVE); BLOOD URINE MANUAL POSITIVE (NEGATIVE); COLOR, URINE MANUAL YELLOW (YELLOW); GLUCOSE, URINE (UA) MANUAL NEGATIVE (NEGATIVE); KETONE, URINE MANUAL NEGATIVE (NEGATIVE); LEUKOCYTE ESTERASE, URINE MAN POSITIVE (NEGATIVE); NITRITE, URINE MANUAL NEGATIVE (NEGATIVE); PROTEIN, URINE MANUAL 2+ mg/dL (NEGATIVE); SPECIFIC GRAVITY,URINE MANUAL 1.015 (1.002-1.035); UROBILINOGEN, URINE MANUAL NORMAL (NORMAL)
[2022-04-25 18:08] LABS: RBC, URINE 40-50 /hpf (0-3); WBC, URINE TNTC /hpf (0-3)
[2022-04-25 18:09] LABS: BACTERIA, URINE LARGE AMOUNT; SQUAMOUS EPITHELIAL CELL URINE NONE SEEN /hpf (SMALL AMT)
== END ==
LOC: SKLAB3 07:00
PROVIDERS: ATTEND Internal Medicine
DX: R44.3 Hallucinations, unspecified (principal); Z79.899 Other long term (current) drug therapy

== ENCOUNTER → 2022-04-25 | Outpatient (CLI) | payer MEDICARE, MEDICAID | LOC: M RAD 14:47 | PROVIDERS: ATTEND Nurse Practitioner Adult Health | DX: M54.2 Cervicalgia (principal); S32.010A Wedge compression fracture of first lumbar vertebra, initial encounter for closed fracture; S22.070A Wedge compression fracture of T9-T10 vertebra, initial encounter for closed fracture; X58.XXXA Exposure to other specified factors, initial encounter; Y92.9 Unspecified place or not applicable ==

== ENCOUNTER → 2022-05-11 | Outpatient (REF) | payer MEDICARE, MEDICAID ==
[2022-05-11 19:28] LABS: HEMATOCRIT 38.2 % (36.0-47.0); HEMOGLOBIN 12.8 g/dl (12.0-15.5); MEAN CORPUSCULAR HEMOGLOBIN 33.6 pg (27.0-33.0); MEAN CORPUSCULAR HGB CONC 33.5 g/dl (32.0-36.5); MEAN CORPUSCULAR VOLUME 100.3 fl (80.0-96.0); PLATELET COUNT, AUTOMATED 261 10^3/uL (150-450); RED BLOOD COUNT 3.81 10^6/uL (4.00-5.40); WHITE BLOOD COUNT 9.3 10^3/uL (4.0-10.0)
[2022-05-11 19:54] LABS: ALBUMIN 2.6 G/DL (3.2-5.2); ALKALINE PHOSPHATASE 52 U/L (46-116); ALT/SGPT < 9 U/L (7.0-40); AST/SGOT 18 U/L (<34); BILIRUBIN,TOTAL 0.4 MG/DL (0.3-1.2); BLOOD UREA NITROGEN 26 MG/DL (9-23); CALCIUM LEVEL 8.2 MG/DL (8.3-10.6); CARBON DIOXIDE LEVEL 20 MMOL/L (20-31); CHLORIDE LEVEL 95 MMOL/L (98-107); CREATININE FOR GFR 0.97 MG/DL (0.55-1.30); GLOMERULAR FILTRATION RATE 58.4 (>32); GLUCOSE, FASTING 73 MG/DL (74-106); POTASSIUM SERUM 3.6 MMOL/L (3.5-5.1); SODIUM LEVEL 129 MMOL/L (136-145); TOTAL PROTEIN 4.8 G/DL (5.7-8.2)
== END ==
LOC: SKLAB3 07:09
PROVIDERS: ATTEND Internal Medicine
DX: I95.9 Hypotension, unspecified (principal)

== ENCOUNTER → 2022-05-13 | Outpatient (REF) | payer MEDICARE, MEDICAID ==
[2022-05-13 07:55] LABS: BLOOD UREA NITROGEN 22 MG/DL (9-23); CALCIUM LEVEL 7.6 MG/DL (8.3-10.6); CARBON DIOXIDE LEVEL 17 MMOL/L (20-31); CHLORIDE LEVEL 101 MMOL/L (98-107); CREATININE FOR GFR 0.78 MG/DL (0.55-1.30); GLOMERULAR FILTRATION RATE > 60.0 (>32); GLUCOSE, FASTING 77 MG/DL (74-106); POTASSIUM SERUM 3.6 MMOL/L (3.5-5.1); SODIUM LEVEL 131 MMOL/L (136-145)
== END ==
LOC: SKLAB3 07:10
PROVIDERS: ATTEND Internal Medicine
DX: E87.1 Hypo-osmolality and hyponatremia (principal)

== ENCOUNTER → 2022-05-14 | Outpatient (REF) | payer MEDICARE, MEDICAID ==
[2022-05-14 08:06] LABS: ALBUMIN 2.4 G/DL (3.2-5.2); ALKALINE PHOSPHATASE 54 U/L (46-116); ALT/SGPT < 9 U/L (7.0-40); AST/SGOT 14 U/L (<34); BILIRUBIN,TOTAL 0.4 MG/DL (0.3-1.2); BLOOD UREA NITROGEN 20 MG/DL (9-23); CALCIUM LEVEL 7.5 MG/DL (8.3-10.6); CARBON DIOXIDE LEVEL 20 MMOL/L (20-31); CHLORIDE LEVEL 104 MMOL/L (98-107); CREATININE FOR GFR 0.78 MG/DL (0.55-1.30); GLOMERULAR FILTRATION RATE > 60.0 (>32); GLUCOSE, FASTING 73 MG/DL (74-106); POTASSIUM SERUM 3.4 MMOL/L (3.5-5.1); SODIUM LEVEL 132 MMOL/L (136-145); TOTAL PROTEIN 4.5 G/DL (5.7-8.2)
== END ==
LOC: SKLAB3 08:55
PROVIDERS: ATTEND Nurse Practitioner
DX: E86.0 Dehydration (principal)

== ENCOUNTER → 2022-05-16 | Outpatient (REF) | payer MEDICARE, MEDICAID ==
[2022-05-16 11:10] LABS: BASO % 0.5 % (0.0-1.0); EOS % 0.2 % (0.0-3.0); HEMATOCRIT 41.7 % (36.0-47.0); HEMOGLOBIN 13.5 g/dl (12.0-15.5); LYMPH # 2.4 10^3/uL (1.5-5.0); LYMPH % 28.4 % (24.0-44.0); MEAN CORPUSCULAR HEMOGLOBIN 33.8 pg (27.0-33.0); MEAN CORPUSCULAR HGB CONC 32.4 g/dl (32.0-36.5); MEAN CORPUSCULAR VOLUME 104.5 fl (80.0-96.0); MONO # 0.3 10^3/uL (0.0-0.8); MONO % 3.6 % (2.0-8.0); NEUTROPHILS # 5.7 10^3/uL (1.5-8.5); NEUTROPHILS % 66.4 % (36.0-66.0); PLATELET COUNT, AUTOMATED 302 10^3/uL (150-450); RED BLOOD COUNT 3.99 10^6/uL (4.00-5.40); WHITE BLOOD COUNT 8.5 10^3/uL (4.0-10.0)
[2022-05-16 11:41] LABS: ALBUMIN 2.6 G/DL (3.2-5.2); ALKALINE PHOSPHATASE 68 U/L (46-116); ALT/SGPT < 9 U/L (7.0-40); AST/SGOT 19 U/L (<34); BILIRUBIN,TOTAL 0.5 MG/DL (0.3-1.2); BLOOD UREA NITROGEN 28 MG/DL (9-23); CALCIUM LEVEL 8.3 MG/DL (8.3-10.6); CARBON DIOXIDE LEVEL 16 MMOL/L (20-31); CHLORIDE LEVEL 103 MMOL/L (98-107); CREATININE FOR GFR 1.11 MG/DL (0.55-1.30); GLUCOSE, FASTING 84 MG/DL (74-106); SODIUM LEVEL 133 MMOL/L (136-145); TOTAL PROTEIN 4.9 G/DL (5.7-8.2)
== END ==
LOC: SKLAB3 10:21
PROVIDERS: ATTEND Nurse Practitioner
DX: I51.7 Cardiomegaly (principal); K44.9 Diaphragmatic hernia without obstruction or gangrene; I70.0 Atherosclerosis of aorta; M16.0 Bilateral primary osteoarthritis of hip

== ENCOUNTER → 2022-05-17 | Outpatient (REF) | payer MEDICARE, MEDICAID ==
[2022-05-17 12:04] LABS: CALCIUM LEVEL 8.8 MG/DL (8.3-10.6); CREATININE FOR GFR 1.24 MG/DL (0.55-1.30); POTASSIUM SERUM 5.7 MMOL/L (3.5-5.1)
== END ==
LOC: SKLAB3 10:40
PROVIDERS: ATTEND Nurse Practitioner
DX: R60.9 Edema, unspecified (principal)